=== PATIENT | male | born 1965 | race Caucasian/White ===

== ENCOUNTER 2019-12-23 10:22 | Inpatient (IN) | payer SELFPAY ==
[2019-12-23 11:20] LABS: #Lymphocytes 1.3 thou/uL (1.20-3.40); #Neutrophils 6.3 thou/uL (1.40-6.50); %Basophils 0.5 % (0.0-1.0); %Eosinophils 0.2 % (0.0-10.0); %Lymphocytes 14.7 % (21.0-51.0); %Monocytes 11.3 % (0.0-10.0); %Neutrophils 73.3 % (42.0-75.0); Hemoglobin 14.4 g/dL (14.0-18.0); Mean Corpuscular HGB CONC 31.5 g/dL (32.0-36.0); Mean Corpuscular Hemoglobin 31.3 pg (27.0-31.0); Mean Corpuscular Volume 99.3 fL (78.0-98.0); Mean Platelet Volume 10.3 fL (7.4-10.4); Platelet Count 179 thou/uL (130-400); Red Blood Cell (RBC) Count 4.61 mill/uL (4.70-6.10); White Blood Cell (WBC) Count 8.5 thou/uL (4.8-10.8)
[2019-12-23] MEDS ORDERED: Ondansetron ODT 4 MG TAB ONE (11:47)
[2019-12-23] MEDS ORDERED: Ondansetron PF 4 MG/2 ML Vial ONE ×2 (11:47→11:51)
[2019-12-23 11:49] LABS: ALT (SGPT) 41 U/L (8-55); AST (SGOT) 21 U/L (5-34); Albumin 3.4 g/dL (3.5-5.0); Alkaline Phosphatase 257 U/L (40-110); Anion Gap 25 mmol/L (10-20); BUN (Urea Nitrogen) 62 mg/dL (8.4-25.7); Bilirubin, Total 4.7 mg/dL (0.2-1.2); Calc. Creatinine Clearance 0 mL/min (70-130); Calcium 8.6 mg/dL (7.8-10.44); Carbon Dioxide 18 mmol/L (22-29); Chloride 92 mmol/L (98-107); Estimated GFR-MDRD 7; Globulin 3.3 g/dL (2.4-3.5); Glucose 266 mg/dL (70-105); Potassium 5.4 mmol/L (3.5-5.1); Protein, Total 6.7 g/dL (6.0-8.3); Sodium 130 mmol/L (136-145)
[2019-12-23 11:59] LABS: CKMB 3.7 ng/mL (0-6.6)
[2019-12-23] MEDS ORDERED: Heparin 10,000 UNITS/ 10 ML VIAL ONE (12:26)
--- NOTE | 2019-12-23 12:43 | RAD ---
EXAM: Single view of the chest HISTORY: Chest pain during dialysis COMPARISON: None FINDINGS: Single view of the chest shows a normal sized cardiomediastinal silhouette. A right IJ denise lysis catheter seen with its tip in the superior vena cava. There may be a small right pleural effusion. The bones are unremarkable. IMPRESSION: Possible small right pleural effusion.
[2019-12-23] MEDS ORDERED: Aspirin Chewable 81 MG TAB ONE (12:48)
[2019-12-23] MEDS ORDERED: Dextrose 5% in Water 1,000 ML IV PRN (13:39)
[2019-12-23] MEDS ORDERED: Nitroglycerin 0.4 MG TAB (25 Tab Bottle) SL PRN (13:40)
[2019-12-23 15:00] LABS: Troponin I 0.059 ng/mL (< 0.028)
[2019-12-23 15:25] LABS: HBSAg Index 0.22 S/CO (0-0.99); Hep B Surf Ag Non-Reactive S/CO (NonReactive)
[2019-12-23] MEDS: Heparin 5,000 UNITS/ML VIAL SC SCH ×2 (15:46→21:16)
[2019-12-23] MEDS: Insulin Regular 300 UNITS/3 ML VIAL SC PRN (15:47)
--- NOTE | 2019-12-23 16:01 | CON ---
DATE OF CONSULTATION: REASON FOR CONSULTATION: End-stage renal disease, on maintenance hemodialysis. HISTORY OF PRESENT ILLNESS: This is a very pleasant 54-year-old gentleman, who presented for evaluation and management of chest pain. The patient is on dialysis on Wednesday, , Wednesday and is supposed to get vancomycin for cellulitis. The patient denies any nausea, vomiting, or chest pain. PAST MEDICAL HISTORY: Hypertension, diabetes mellitus, cirrhosis, ESRD, hypothyroidism, right foot surgery, tunneled dialysis catheter. SOCIOECONOMIC HISTORY: No alcohol or drug use. FAMILY HISTORY: Negative for ESRD. ALLERGIES: REVIEWED. REVIEW OF SYSTEMS: Fifteen-point review of system was performed and negative except for positives noted above. GENERAL: HEAD: NECK: No swelling or lumps. NOSE: No epistaxis or discharge. EYES: No diplopia or pain. RESPIRATORY: CARDIOVASCULAR: GASTROINTESTINAL: /CREDIT ASSISTANT: MUSCULOSKELETAL: No joint pain. NEUROPSYCHIATRIC SYSTEMS: No suicidal ideation. No ideation. SKIN: Denies any rash or ulcer. CONSTITUTIONAL: No fever or chills. PHYSICAL EXAMINATION: CONSTITUTIONAL: On exam, the patient is awake and alert. VITAL SIGNS: Afebrile, pulse 82, breathing 16, and blood pressure 103/70. GENERAL APPEARANCE AND MENTAL STATUS: Fair. HEAD/NECK: Normocephalic. Atraumatic. EYES: EOMI. No deformity. EARS: Clear. No ulcers. NOSE: Intact. No lesions. MOUTH: Clear. No discharge. THROAT: Clear. No exudate. LUNGS: Clear. No crackles. CARDIAC: S1, S2. No rub. ABDOMEN: Benign. Bowel sounds positive. GENITALIA/RECTUM: Abraham absent. BACK/EXTREMITIES: Edema 0+. NEUROLOGICAL: Alert and motor intact. SKIN: LYMPHATICS: LABORATORY DATA: Labs show hemoglobin 14.4. ASSESSMENT AND PLAN: 1. Stage 6 chronic kidney disease. Plan dialysis. 2. Hyperkalemia. Plan dialysis. 3. Anemia, stable. 4. Medications based on glomerular filtration rate are appropriate. Job ID: [id number]
[2019-12-23 17:38] LABS: Troponin I 0.059 ng/mL (< 0.028)
[2019-12-23] MEDS ORDERED: Vancomycin Sliding Scale 1 EACH FS ONE (18:00)
[2019-12-23] MEDS ORDERED: Vancomycin HCl 1.5 GM in Sodium Chloride 0.9% 250 ML 300 ML IVPB SCH (18:00)
[2019-12-23] MEDS ORDERED: HOLD VANCOMYCIN FOR LEVEL >20 FS SCH (18:00)
[2019-12-23] MEDS ORDERED: Vancomycin HCl 750 MG in Sodium Chloride 0.9% 250 ML 250 ML IVPB SCH (18:00)
[2019-12-23] MEDS ORDERED: Vancomycin HCl 1.25 GM in Sodium Chloride 0.9% 250 ML 250 ML IVPB SCH (18:00)
[2019-12-23] MEDS ORDERED: Vancomycin HCl 1 GM in Premix Bag 1 BAG IVPB SCH (18:00)
--- NOTE | 2019-12-23 19:49 | HP ---
CHIEF COMPLAINT: Chest pain. HISTORY OF PRESENT ILLNESS: This is a 54-year-old male with history of end- stage renal disease, recently started on hemodialysis; history of hypertension; diabetes mellitus type 2, on insulin; and recent diagnosis of pericardial effusion with no tamponade; who presented to the hospital with complaints of right-sided chest pain. The patient went for his dialysis today and after 1 hour of starting the dialysis, he started experiencing right-sided chest pain around his Edwards catheter site. Subsequently, hemodialysis was discontinued and the patient's pain resolved in few minutes. The patient was sent to the emergency department, where his initial vitals were stable and he did not complain of any chest pain. EKG showed T-wave inversion in V4 to V6 and initial troponin was slightly elevated at 0.065. The patient denied any recent fever, chills, nausea, vomiting, palpitations, cough, shortness of breath, or dizziness. Given his risk factor for coronary artery disease based on his history of end- stage renal disease and elevated heart score, we were asked to see this patient for further evaluation. REVIEW OF SYSTEMS: Negative except as noted in HPI. PAST MEDICAL HISTORY: 1. End-stage renal disease, on hemodialysis. 2. Hypertension. 3. Diabetes mellitus type 2, on insulin. 4. Pericardial effusion. PAST SURGICAL HISTORY: None. SOCIAL HISTORY: The patient does not smoke, drink alcohol, or use illicit drugs. PHYSICAL EXAMINATION: GENERAL: The patient is alert and oriented x3. He appears to be in distress due to generalized aching. HEENT: His head is normocephalic, atraumatic. His extraocular muscles are intact. NECK: Supple. HEART: Auscultation revealed normal S1 and S2, regular rate and rhythm. No murmurs, rubs, or gallops. LUNGS: Clear bilaterally. Crackles were heard at the bases. ABDOMEN: Soft, nontender, and nondistended with positive bowel sounds. NEUROLOGICAL: Revealed normal cranial nerves 2 through 12 with no focal deficits. PERTINENT LABORATORY FINDINGS: Sodium level of 130, potassium 5.4, chloride 92, carbon dioxide 18, BUN 62, creatinine 8.06, and glucose of 266. His troponin was elevated at 0.065. IMAGING DATA: Chest x-ray revealed possible small right pleural effusion. IMPRESSION AND PLAN: 1. Chest pain, rule out acute coronary syndrome. The patient presented with atypical chest pain around his Edwards catheter, that was relieved after discontinuation of hemodialysis. We will consult Nephrology for hemodialysis and to assess the functioning of the Edwards catheter. We will trend troponins and start aspirin and atorvastatin. Start nitroglycerin 0.4 mg p.r.n. for pain and metoprolol tartrate 12.5 mg orally twice daily. Heart score is 4 correlating with risk of MACE of 12% to 16.6%. If the patient remains chest pain-free and his troponins are unremarkable, we will plan for a stress test tomorrow. 2. End-stage renal disease, on hemodialysis. 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 3. Volume overload and hyperkalemia. This will likely improve with dialysis. 4. Pleural effusion. This is small and is not amenable to thoracentesis. Likely related to volume overload. 5. Pericardial effusion. No evidence of tamponade on recent echo. Likely related to volume overload. Job ID: [id number] MTDD
[2019-12-23] MEDS: Atorvastatin Calcium 20 MG TAB PO SCH (21:16)
[2019-12-23] MEDS: Metoprolol Tartrate 25 MG TAB PO SCH (23:08)
[2019-12-24 04:54] LABS: Anion Gap 20 mmol/L (10-20); BUN (Urea Nitrogen) 50 mg/dL (8.4-25.7); Calc. Creatinine Clearance 18 mL/min (70-130); Calcium 8.4 mg/dL (7.8-10.44); Carbon Dioxide 19 mmol/L (22-29); Chloride 97 mmol/L (98-107); Estimated GFR-MDRD 8; Glucose 192 mg/dL (70-105); Potassium 4.5 mmol/L (3.5-5.1); Sodium 131 mmol/L (136-145)
[2019-12-24 05:21] LABS: Mean Corpuscular Volume 96.9 fL (78.0-98.0)
[2019-12-24 06:07] LABS: Hemoglobin 12.9 g/dL (14.0-18.0); Mean Corpuscular HGB CONC 33.1 g/dL (32.0-36.0); Mean Corpuscular Hemoglobin 32.1 pg (27.0-31.0); RBC Distribution Width 19.3 % (11.5-14.5); Red Blood Cell (RBC) Count 4.03 mill/uL (4.70-6.10)
[2019-12-24 06:45] LABS: Anisocytosis SLIGHT = 6-15 cells (100X) (0-5/hpf); Band 5 % (5-11); Lymphocytes 12 % (21-51); MDiff Complete? YES; Mean Platelet Volume 10.6 fL (7.4-10.4); Monocytes 7 % (0-10); Neutrophil 76 % (42-75); Platelet Count 127 thou/uL (130-400)
[2019-12-24] MEDS ORDERED: Preparation H Suppository PR PRN (11:53)
[2019-12-24] MEDS: Heparin 5,000 UNITS/ML VIAL SC SCH ×3 (12:07→20:24)
[2019-12-24] MEDS: Insulin Glargine 20 UNITS in Pre-Filled Syringe 1 EACH SC SCH (13:33)
[2019-12-24] MEDS: Aspirin 81 mg Enteric Coated Tablet PO SCH (13:33)
[2019-12-24] MEDS: Metoprolol Tartrate 25 MG TAB PO SCH ×2 (13:48→20:22)
--- NOTE | 2019-12-24 14:40 | PDOC.HOSPP ---
- Subjective Encounter Date: 12/24/19 Subjective: Stress test could not be completed due to the patient being unable to lay on the test table - Objective Vital Signs & Weight: Vital Signs (12 hours) Temp Pulse Resp BP Pulse Ox 12/24/19 11:44 97.3 F L 94 18 93/62 93 L 12/24/19 07:42 98.1 F 90 16 92/62 92 L 12/24/19 03:25 98.1 F 90 22 H 88/58 L 92 L Weight Admit Weight 228 lb 1.6 oz Weight 228 lb 1.6 oz I&O: 12/23/19 12/24/19 12/25/19 06:59 06:59 06:59 Intake Total 320 480 Output Total 0 1350 Balance 320 -870 Result Diagrams: 12/24/19 04:15 12/24/19 04:15 Additional Labs: Accuchecks 12/24/19 12/24/19 12/23/19 11:50 06:05 21:18 POC Glucose 195 H 167 H 154 H 12/23/19 14:40 POC Glucose 224 H Hospitalist ROS - Medication Medications: Active Medications Generic Name Dose Route Start Last Admin Trade Name Freq PRN Reason Stop Dose Admin Aspirin 81 mg 12/24/19 09:00 12/24/19 13:33 Ecotrin PO 81 mg DAILY REYNALDO Administration Atorvastatin Calcium 20 mg 12/23/19 21:00 12/23/19 21:16 Lipitor PO 20 mg HS REYNALDO Administration Heparin Sodium (Porcine) 5,000 units 12/23/19 15:00 12/24/19 12:07 Heparin SC Not Given TID REYNALDO Insulin Glargine 20 units/ 0.2 mls @ 0 mls/hr 12/24/19 09:00 12/24/19 13:33 Miscellaneous Medication SC 0.2 mls QAM REYNALDO Administration Insulin Human Regular 0 units 12/23/19 13:39 12/23/19 15:47 Humulin R SC 4 unit .MODERATE SLIDING SC PRN Administration Moderate Correctional Scale Metoprolol Tartrate 12.5 mg 12/23/19 21:00 12/24/19 13:48 Lopressor PO Not Given BID REYNALDO Phenyleph/Shark Oil/[place] Butter 1 supp 12/24/19 11:53 12/24/19 13:34 Preparation H TN 1 supp Q6H PRN Administration Hemorrhoids - Exam General Appearance: awake alert Eye: anicteric sclera ENT: normocephalic atraumatic, no oropharyngeal lesions Neck: supple, no JVD Heart: RRR, no murmur, no gallops Respiratory: rhonchi Gastrointestinal: soft, non-tender, non-distended, normal bowel sounds Neurological: cranial nerve grossly intact, no focal deficits Hosp A/P (1) Chest pain Code(s): R07.9 - CHEST PAIN, UNSPECIFIED Status: Acute Plan: TWI on V4-V6 Trop stable at 0.05 Chest pain is atypical Stress test to be completed tomorrow (2) ESRD (end stage renal disease) on dialysis Code(s): N18.6 - END STAGE RENAL DISEASE; Z99.2 - DEPENDENCE ON RENAL DIALYSIS Status: Acute Plan: The patient would like to transition to peritoneal dialysis Surgery consulted by nephrology Cont HD per nephrology recs (3) Volume overload Code(s): E87.70 - FLUID OVERLOAD, UNSPECIFIED Status: Acute
--- NOTE | 2019-12-24 15:10 | PRG ---
DATE OF SERVICE: 12/24/2019 SUBJECTIVE: A 54-year-old gentleman being seen for end-stage renal disease. The patient denies any nausea, vomiting, or chest pain. OBJECTIVE: VITAL SIGNS: Afebrile, pule 94, breathing 16, and blood pressure 93/62. CONSTITUTIONAL: Awake, alert, in no acute distress. GENERAL APPEARANCE AND MENTAL STATUS: Fair. HEAD/NECK: Normocephalic. Atraumatic. EYES: EOMI. No deformity. EARS: Clear. No ulcers. NOSE: Intact. No lesions. MOUTH: Clear. No discharge. THROAT: Clear. No exudate. LUNGS: Clear. No crackles. CARDIAC: S1, S2. No rub. ABDOMEN: Benign. Bowel sounds positive. GENITALIA/RECTUM: Abraham absent. BACK/EXTREMITIES: Edema 0+. NEUROLOGICAL: Alert and motor intact. SKIN: LYMPHATICS: LABORATORY DATA: Reviewed. ASSESSMENT: 1. Stage 6 chronic kidney disease. Continue hemodialysis. 2. Hypotension with question of history of abnormal stress test. We will recommend echo and Cardiology consultation. 3. Failed dialysis catheter. We would recommend new catheter consult and PD catheter placement. 4. Anemia, stable. 5. Medication based on GFR appropriate. Job ID: [id number]
[2019-12-24] MEDS: Insulin Regular 300 UNITS/3 ML VIAL SC PRN (19:05)
--- NOTE | 2019-12-24 19:14 | CON ---
DATE OF CONSULTATION: 12/24/2019 REASON FOR CONSULTATION: Chest pain. HISTORY OF PRESENT ILLNESS: Mr. North is a pleasant 54-year-old white gentleman who comes to the hospital for chest pain. He was started recently on hemodialysis. He had a tunneled catheter placement for his right chest, and he is having pain around his site. He had 1 hour of dialysis today, and when they start pulling the blood out of the line, it is painful to him. He was scheduled for a stress test today, but he had pain around his hemorrhoid site, so he could not lay on his back, so the stress test was canceled. He also has chronically low blood pressure in the 80s/60s, so his stress was canceled. He denies any left-sided chest pain, the pain is only there when they start pulling blood from the dialysis catheter. He is also battling an infection on his legs, and he has been told this is an MRSA infection or at least just a staph infection, and he feels he needs to be on antibiotics. His troponins are in indeterminate range. He has never had a heart workup in the past, however, he was told when he started having renal issues that he had fluid around his heart. This was not seen in [place], but he was told that with the initiation of dialysis, this fluid was going to start to come off. PAST MEDICAL HISTORY: 1. End-stage renal disease, on hemodialysis. 2. Hypertension. 3. Type 2 diabetes. 4. History of pericardial effusion. PAST SURGICAL HISTORY: Tunneled catheter placed on the right IJ. SOCIAL HISTORY: No alcohol, tobacco, or drugs. OUTPATIENT MEDICATIONS: 1. Lantus insulin 30 units at bedtime. 2. Spironolactone 25 mg a day. 3. Furosemide 80 mg b.i.d. 4. Midodrine 10 mg t.i.d. 5. Amiloride 5 mg a day. 6. Metolazone 10 mg b.i.d. 7. Docusate 100 mg a day. 8. Renvela. 9. Vitamin D3. ALLERGIES: NO KNOWN DRUG ALLERGIES. FAMILY HISTORY: Noncontributory. REVIEW OF SYSTEMS: A 12-point review of systems was done and was all negative unless stated in the history of present illness. PHYSICAL EXAMINATION: VITAL SIGNS: Temperature 98, pulse 98, respiratory rate 18, saturation 96% on room air, blood pressure 90/72. GENERAL: Awake, alert, oriented x3. In no distress. HEENT: Normocephalic and atraumatic. NECK: Supple. LUNGS: Clear. CARDIOVASCULAR: S1 and S2. No S3 or S4. No murmurs. ABDOMEN: Soft. Positive bowel sounds. EXTREMITIES: 1+ edema. SKIN: Warm and dry. There is erythema on both legs. This is not painful and it is warm. LABORATORY WORK: White count of 8, hemoglobin of 12.9, hematocrit 39, platelet count 127. Chemistry with a sodium 131, potassium 4.5, BUN 50, creatinine 6.97, GFR of 8. Troponin is in the indeterminate range at 0.06, then 0.05, then 0.05 with a CK-MB of 3.7. HB surface antigen was nonreactive. Chest x-ray showed possible small right pleural effusion. ASSESSMENT AND PLAN: 1. Chest pain, atypical, likely related to the new right-sided tunneled catheter. 2. End-stage renal disease, on hemodialysis. This is new for him. He is trying to get at least 4 hours and they could only do 1 hour this time due to pain and low blood pressure. 3. Low blood pressure with hemodialysis, on midodrine. 4. Bilateral lower extremity cellulitis. He has been told it is staph infection per Primary Team. PLAN: 1. He has never had a stress test before. We will repeat an echocardiogram to make sure that his pericardial effusion is not growing significantly if that is the case, he may need a window. However, he tells me that his low blood pressure has been like this pretty much all his life. He does not feel short of breath. He only feels the pain on his back is an issue and he is worried about the infection in his legs. 2. Chest pain is certainly atypical for angina. He has right-sided pain around his catheter site. We will wait on any further risk stratification until other issues are addressed. Thank you for letting us to participate in the care of your patient. We will follow. Job ID: [id number]
[2019-12-24] MEDS: Atorvastatin Calcium 20 MG TAB PO SCH (20:23)
[2019-12-25 05:08] LABS: Anion Gap 20 mmol/L (10-20); BUN (Urea Nitrogen) 57 mg/dL (8.4-25.7); Calc. Creatinine Clearance 16 mL/min (70-130); Calcium 8.1 mg/dL (7.8-10.44); Carbon Dioxide 15 mmol/L (22-29); Chloride 97 mmol/L (98-107); Estimated GFR-MDRD 7; Glucose 151 mg/dL (70-105); Potassium 5.6 mmol/L (3.5-5.1); Sodium 126 mmol/L (136-145)
[2019-12-25 06:02] LABS: Hemoglobin 12.8 g/dL (14.0-18.0); Mean Corpuscular HGB CONC 31.2 g/dL (32.0-36.0); Mean Corpuscular Hemoglobin 31.2 pg (27.0-31.0); Mean Platelet Volume 7.6 fL (7.4-10.4); Platelet Count 131 thou/uL (130-400); RBC Distribution Width 19.4 % (11.5-14.5); Red Blood Cell (RBC) Count 4.11 mill/uL (4.70-6.10)
[2019-12-25 06:12] LABS: Eosinophils 1 % (0-10); Lymphocytes 20 % (21-51); MDiff Complete? YES; Monocytes 10 % (0-10); Neutrophil 69 % (42-75); Target Cells SLIGHT = 2-5 cells (100X) (0-1/hpf); White Blood Cell (WBC) Count 7.2 thou/uL (4.8-10.8)
[2019-12-25] MEDS: Heparin 5,000 UNITS/ML VIAL SC SCH ×3 (08:40→20:22)
[2019-12-25] MEDS: Aspirin 81 mg Enteric Coated Tablet PO SCH (08:40)
[2019-12-25] MEDS: Insulin Glargine 20 UNITS in Pre-Filled Syringe 1 EACH SC SCH (08:41)
[2019-12-25] MEDS: Metoprolol Tartrate 25 MG TAB PO SCH ×2 (08:42→20:38)
[2019-12-25] MEDS ORDERED: Heparin 10,000 UNITS/ 10 ML VIAL ONE (08:55)
[2019-12-25] MEDS ORDERED: Regadenoson 0.4 MG/5 ML SYRINGE ONE (08:57)
--- NOTE | 2019-12-25 13:10 | PRG ---
DATE OF SERVICE: 12/25/2019 SUBJECTIVE: Patient was seen and examined at bedside and overnight events noted. Patient denies any shortness of breath or chest pain or palpitation. No history of nausea or vomiting or diarrhea or fever or chills or cramps. OBJECTIVE: GENERAL: This is a well-built male, in no apparent distress. VITAL SIGNS: Temperature 97.9, heart rate 88, respiratory rate 18, blood pressure 100/57. HEENT: Atraumatic, normocephalic. Oral mucosa is moist. NECK: Supple. CARDIOVASCULAR: S1, S2 heard. Rate and rhythm regular. RESPIRATORY: Clear to auscultation. GASTROINTESTINAL: Abdomen is soft. MUSCULOSKELETAL: No tenderness. No edema. DERMATOLOGIC: No skin rash. NEUROLOGIC: Alert and awake and oriented X3. No focal neurologic deficits. Moving all the extremities. PSYCHIATRIC: Mood and affect normal. LABORATORY DATA: Potassium 5.6, sodium is 126, BUN is 57, and creatinine is 7.8. ASSESSMENT AND PLAN: 1. End-stage renal disease, on hemodialysis. Plan is to have dialysis. 2. Hypotension. We will use albumin. 3. Hyponatremia, limit fluid intake. 4. Hyperkalemia. Limit potassium intake. 5. Acidosis, chronic. 6. History of cirrhosis. 7. Chronic hypotension, on midodrine. 8. Anemia. 9. Plan is to have dialysis today, might need daily dialysis with albumin. 10. The patient and family are interested in doing PD. We will ask Surgery to assess if he can have PD catheter placement, also might need to change out the tunneled dialysis catheter. We will consult Surgery in the morning. Plan to have dialysis today. Limit fluid and potassium intake. Job ID: [id number]
--- NOTE | 2019-12-25 13:11 | NM ---
Radionucleotide stress and rest myocardial perfusion scan with CT attenuation correction and SPECT im aging Left ventricular wall motion evaluation and ejection fraction HISTORY: Chest pain. FINDINGS: Lexiscan protocol. There is heterogeneous uptake of radiotracer throughout the left ventric ular myocardium. No focal perfusion defect or reversibility. QGS analysis of gated SPECT images shows no focal wall motion abnormalities. Ejection fraction calcul ated at 77%. IMPRESSION: Normal exam.
--- NOTE | 2019-12-25 13:56 | PDOC.HOSPP ---
- Subjective Encounter Date: 12/25/19 Subjective: The patient was seen and examined. Denies any chest pain today. N.p.o. for the second part of the stress test. - Objective Vital Signs & Weight: Vital Signs (12 hours) Temp Pulse Resp BP Pulse Ox 12/25/19 12:34 97.4 F L 91 16 92/68 94 L 12/25/19 08:46 96/65 12/25/19 07:20 97.9 F 88 18 100/57 L 92 L 12/25/19 05:20 98.1 F 92 16 99/50 L 92 L Weight Admit Weight 228 lb 1.6 oz Weight 228 lb 1.6 oz I&O: 12/24/19 12/25/19 12/26/19 06:59 06:59 06:59 Intake Total 320 600 Output Total 0 1350 Balance 320 -750 Result Diagrams: 12/25/19 04:12 12/25/19 04:12 Additional Labs: Accuchecks 12/25/19 12/25/19 12/24/19 10:23 05:28 20:51 POC Glucose 133 H 151 H 222 H 12/24/19 17:29 POC Glucose 257 H Hospitalist ROS - Medication Medications: Active Medications Generic Name Dose Route Start Last Admin Trade Name Freq PRN Reason Stop Dose Admin Aspirin 81 mg 12/24/19 09:00 12/25/19 08:40 Ecotrin PO 81 mg DAILY REYNALDO Administration Atorvastatin Calcium 20 mg 12/23/19 21:00 12/24/19 20:23 Lipitor PO 20 mg HS REYNALDO Administration Heparin Sodium (Porcine) 5,000 units 12/23/19 15:00 12/25/19 08:40 Heparin SC 5,000 units TID REYNALDO Administration Insulin Glargine 20 units/ 0.2 mls @ 0 mls/hr 12/24/19 09:00 12/25/19 08:41 Miscellaneous Medication SC Not Given QAM [facility] Insulin Human Regular 0 units 12/23/19 13:39 12/24/19 19:05 Humulin R SC 6 unit .MODERATE SLIDING SC PRN Administration Moderate Correctional Scale Metoprolol Tartrate 12.5 mg 12/23/19 21:00 12/25/19 08:42 Lopressor PO Not Given BID [facility] Phenyleph/Shark Oil/[place] Butter 1 supp 12/24/19 11:53 12/24/19 13:34 Preparation H MD 1 supp Q6H PRN Administration Hemorrhoids - Exam General Appearance: awake alert ENT: normocephalic atraumatic Neck: supple, no JVD Heart: RRR, no murmur, no gallops, no rubs Respiratory: rhonchi Gastrointestinal: soft, non-tender, non-distended, normal bowel sounds Hosp A/P (1) Chest pain Code(s): R07.9 - CHEST PAIN, UNSPECIFIED Status: Acute (2) ESRD (end stage renal disease) on dialysis Code(s): N18.6 - END STAGE RENAL DISEASE; Z99.2 - DEPENDENCE ON RENAL DIALYSIS Status: Acute (3) Volume overload Code(s): E87.70 - FLUID OVERLOAD, UNSPECIFIED Status: Acute - Plan Stress test to be completed today. Patient is also scheduled for hemodialysis. This should help with his hyperkalemia. Surgical service will be consulted to discuss PD catheter placement tomorrow.
--- NOTE | 2019-12-25 14:44 | PDOC.CPN ---
- Subjective Date: 12/25/19 Time: 14:37 Interval history: He is doing well. Pain still around his infusion catheter. - Review of Systems General: denies: fever/chills, weight/appetite/sleep changes, night sweats, fatigue Respiratory: denies: cough, congestion, shortness of breath, exercise intolerance Cardiovascular: reports: chest pain. denies: palpitation, edema, paroxysmal nocturnal dyspnea, orthopnea Gastrointestinal: denies: nausea, vomiting, diarrhea, constipation, abd pain, GI bleeding Musculoskeletal: denies: pain, tenderness, stiffness, swelling, arthritis/ arthralgias Neurological: denies: numbness, syncope, seizure, weakness - Objective Allergies/Adverse Reactions: Allergies Allergy/AdvReac Type Severity Reaction Status Date / Time No Known Allergies Allergy Verified 12/23/19 14:30 Visit Medications: Current Medications Hydrocodone Bitart/Acetaminophen ([place] 5/325) 1 tab PO Q12H PRN PRN Reason: Moderate Pain (4-6) Albumin Human (Albumin 25%) 25 gm IVPB PRN PRN PRN Reason: DIALYSIS Aspirin (Ecotrin) 81 mg PO DAILY [facility] Last Admin: 12/25/19 08:40 Dose: 81 mg Atorvastatin Calcium (Lipitor) 20 mg PO HS [facility] Last Admin: 12/24/19 20:23 Dose: 20 mg Dextrose/Water (Dextrose 50%) 25 gm SLOW IVP PRN PRN PRN Reason: Hypoglycemia Glucagon (Glucagon) 1 mg IM PRN PRN PRN Reason: Hypoglycemia Heparin Sodium (Porcine) (Heparin) 5,000 units SC TID [facility] Last Admin: 12/25/19 08:40 Dose: 5,000 units Insulin Glargine 20 units/ (Miscellaneous Medication) 0.2 mls @ 0 mls/hr SC QAM [facility] Last Admin: 12/25/19 08:41 Dose: Not Given Dextrose/Water (D5w) 1,000 mls @ 0 mls/hr IV .Q0M PRN PRN Reason: Hypoglycemia Vancomycin HCl 1.5 gm/ Sodium (Chloride) 300 mls @ 200 mls/hr IVPB WILLCALL REYNALDO Vancomycin HCl 1.25 gm/ Sodium (Chloride) 250 mls @ 166.667 mls/hr IVPB [facility]CALL [facility] Vancomycin HCl 1 gm/ Device 200 mls @ 200 mls/hr IVPB [facility] Vancomycin HCl 750 mg/ Sodium (Chloride) 250 mls @ 250 mls/hr IVPB [facility] Insulin Human Regular (Humulin R) 0 units SC .MODERATE SLIDING SC PRN PRN Reason: Moderate Correctional Scale Last Admin: 12/24/19 19:05 Dose: 6 unit Metoprolol Tartrate (Lopressor) 12.5 mg PO BID [facility] Last Admin: 12/25/19 08:42 Dose: Not Given Miscellaneous Medication (Pharmacy To Dose) 1 each IVPB PRN PRN PRN Reason: Pharmacy to dose Nitroglycerin (Nitrostat) 0.4 mg SL Q5MIN PRN PRN Reason: Chest Pain Hold Vancomycin For (Level >20) 0 each FS .AT DIALYSIS [facility] Phenyleph/Shark Oil/[place] Butter (Preparation H) 1 supp [place] Q6H PRN PRN Reason: Hemorrhoids Last Admin: 12/24/19 13:34 Dose: 1 supp Vital Signs & Weight: Vital Signs Temp Pulse Resp BP Pulse Ox 12/25/19 12:34 97.4 F L 91 16 92/68 94 L 12/25/19 08:46 96/65 12/25/19 07:20 97.9 F 88 18 100/57 L 92 L 12/25/19 05:20 98.1 F 92 16 99/50 L 92 L Admit Weight 228 lb 1.6 oz Weight 228 lb 1.6 oz - Physical Exam General: alert & oriented x3 HEENT: mucus membranes moist Neck: supple neck Cardiac: regular rate and rhythm Lungs: normal breath sounds Neuro: grossly intact Abdomen: active bowel sounds Extremities: 1+ LE edema Skin: clear Musculoskeletal: normal range of motion - Labs Result Diagrams: 12/25/19 04:12 12/25/19 04:12 Troponin/CKMB CK-MB (CK-2) 3.7 ng/mL (0-6.6) 12/23/19 11:05 Troponin I 0.059 ng/mL (< 0.028) H 12/23/19 17:04 - Telemetry Sinus rhythms and dysrhythmias: sinus rhythm - Assessment/Plan Assessment/Plan: 1. Chest pain, atypical likely non cardiac 2. ESRD 3. Hypotension during dialysis. PLAN: - Continue plan to dialize. - Stress test was normal. No plan for C at this time. - Will sign off. Please call with any questions.
[2019-12-25] MEDS: Albumin 25% 25 GM/100 ML BOT IVPB PRN (14:54)
[2019-12-25] MEDS: Atorvastatin Calcium 20 MG TAB PO SCH (20:22)
[2019-12-26] MEDS ORDERED: guaiFENesin/Codeine Phosphate 200 mg/20 mg 10 ml UD Cup PO PRN (00:08)
[2019-12-26 04:58] LABS: Anion Gap 16 mmol/L (10-20); BUN (Urea Nitrogen) 52 mg/dL (8.4-25.7); Calc. Creatinine Clearance 17 mL/min (70-130); Calcium 8.4 mg/dL (7.8-10.44); Carbon Dioxide 22 mmol/L (22-29); Chloride 97 mmol/L (98-107); Estimated GFR-MDRD 8; Glucose 126 mg/dL (70-105); Potassium 4.7 mmol/L (3.5-5.1); Sodium 130 mmol/L (136-145)
[2019-12-26 06:07] LABS: Anisocytosis MODERATE=16-30 cells (100X) (0-5/hpf); Band 8 % (5-11); Hemoglobin 12.2 g/dL (14.0-18.0); Lymphocytes 24 % (21-51); MDiff Complete? YES; Mean Corpuscular HGB CONC 32.6 g/dL (32.0-36.0); Mean Corpuscular Hemoglobin 31.8 pg (27.0-31.0); Mean Corpuscular Volume 97.7 fL (78.0-98.0); Mean Platelet Volume 10.3 fL (7.4-10.4); Monocytes 6 % (0-10); Neutrophil 62 % (42-75); Platelet Count 115 thou/uL (130-400); Platelet Morphology Comment Appears Decreased; RBC Distribution Width 19.5 % (11.5-14.5); Red Blood Cell (RBC) Count 3.83 mill/uL (4.70-6.10); White Blood Cell (WBC) Count 6.2 thou/uL (4.8-10.8)
[2019-12-26 09:53] LABS: Vancomycin, Random 7.5 ug/mL (See Comment)
[2019-12-26] MEDS: Albumin 25% 25 GM/100 ML BOT IVPB PRN (10:35)
[2019-12-26] MEDS: Aspirin 81 mg Enteric Coated Tablet PO SCH (11:35)
[2019-12-26] MEDS: Metoprolol Tartrate 25 MG TAB PO SCH ×2 (11:36→21:12)
[2019-12-26] MEDS: Heparin 5,000 UNITS/ML VIAL SC SCH ×3 (11:36→21:09)
[2019-12-26] MEDS: Insulin Glargine 20 UNITS in Pre-Filled Syringe 1 EACH SC SCH (11:36)
[2019-12-26] MEDS ORDERED: Heparin 10,000 UNITS/ 10 ML VIAL ONE (12:25)
[2019-12-26] MEDS ORDERED: CEFAZOLIN 2 GM in Premix Bag 1 BAG IVPB SCH (14:15)
--- NOTE | 2019-12-26 14:51 | ULT ---
BILATERAL UPPER EXTREMITY VEIN MAPPING: HISTORY: End stage renal disease evaluation for dialysis access. FINDINGS: RIGHT CEPHALIC VEIN: Proximal humerus thrombus Mid humerus thrombus Distal thrombus Elbow thrombus Proximal forearm 1.7 mm Mid 1.7 mm Distal 1.9 mm RIGHT BASILIC VEIN: Proximal humerus 3.1 mm Mid humerus 4.7 mm Distal 3.8 mm Elbow 3.8 mm Proximal forearm 2.3 mm Mid 1.5 mm Distal 1.2 mm LEFT CEPHALIC VEIN: Proximal humerus 3.5 mm Mid humerus 2.5 mm Distal 2.0 mm Elbow 2.7 mm Proximal forearm 2.2 mm Mid thrombus Distal thrombus LEFT BASILIC VEIN: Proximal humerus thrombus Mid humerus thrombus Distal thrombus Elbow thrombus Proximal forearm thrombus Mid thrombus Distal 2.3 mm Right: Brachial artery 3.8 mm Radial artery 1.9 mm Ulnar artery 2.3 mm Left: Brachial artery 5.1 mm Radial artery 2.4 mm Ulnar artery 2.2 mm IMPRESSION: Vein mapping as above. POS: KERRI
--- NOTE | 2019-12-26 15:11 | CON ---
DATE OF CONSULTATION: HISTORY OF PRESENT ILLNESS: Dakota North is a 54-year-old male, works for the [employer] ([employer]). He had a dialysis catheter placed in the right IJ at [facility] in [place] in November. He has not sought more permanent dialysis access. During dialysis in [place], he had chest pain. He was sent here for evaluation. He underwent a cardiac stress test, that was negative. Cardiology has seen him and believes that his chest pain was noncardiac in etiology. He has dialyzed since that time without pain. I have been asked by Dr. Negrete to provide peritoneal dialysis and also he has undergone vein mapping. We will provide dialysis access in his right or left arm pending vein mapping. Vein mapping has been performed, but interpretation is pending. ALLERGIES: NONE. HABITS: Tobacco, none. Alcohol, none. MEDICATIONS: 1. Insulin. 2. Aldactone. 3. Lasix. 4. Midamor. 5. Metolazone. 6. Stool softeners. 7. Renvela. 8. Vitamin D. PAST SURGICAL HISTORY: 1. Right foot surgery. 2. Right IJ cuffed dialysis catheter. 3. Never has had a colonoscopy. PAST MEDICAL HISTORY: 1. Diabetes mellitus. 2. Hypertension. 3. Chronic kidney disease, now end-stage renal disease, on maintenance dialysis in [place] on Wednesday, , and Wednesday in [facility]. REVIEW OF SYSTEMS: Ten-point noncontributory. PHYSICAL EXAMINATION: VITAL SIGNS: Height 5 feet 11 inches, 228 pounds, 31 BMI, temperature 97 degrees, heart rate 91, and blood pressure 92/58. LUNGS: Clear to auscultation. CARDIAC: Regular rhythm without murmur or gallop. ABDOMEN: Soft, slightly obese, and nontender. EXTREMITIES: Mildly edematous. Left hand IV. Right IJ cuffed tunneled dialysis catheter. NEUROLOGIC: Intact. VASCULAR: Palpable radial pulses. LABORATORY DATA: White count 6 and hemoglobin 12. GFR 8, potassium 4.7, and sodium 130. ASSESSMENT AND PLAN: 1. End-stage renal disease. Plan placement of peritoneal dialysis catheter laparoscopically. Risks of infection, bleeding, reoperation, malfunction of the dialysis catheter were explained. He consents. Questions answered. 2. Plan placement of left or right arm fistula pending vein mapping. He understands risks and benefits, and consents. 3. Obesity, BMI 31, 228 pounds, 5 feet 11 inches. 4. Diabetes mellitus. 5. Hypertension. 6. Normal cardiac stress test in this hospitalization. Job ID: [id number]
--- NOTE | 2019-12-26 16:52 | PDOC.CPN ---
- Subjective Date: 12/26/19 Time: 16:51 Interval history: No new issues. - Review of Systems General: denies: fever/chills, weight/appetite/sleep changes, night sweats, fatigue Respiratory: denies: cough, congestion, shortness of breath, exercise intolerance Cardiovascular: denies: chest pain, palpitation, edema, paroxysmal nocturnal dyspnea, orthopnea Gastrointestinal: denies: nausea, vomiting, diarrhea, constipation, abd pain, GI bleeding Musculoskeletal: denies: pain, tenderness, stiffness, swelling, arthritis/ arthralgias Neurological: denies: numbness, syncope, seizure, weakness - Objective Allergies/Adverse Reactions: Allergies Allergy/AdvReac Type Severity Reaction Status Date / Time No Known Allergies Allergy Verified 12/23/19 14:30 Visit Medications: Current Medications Hydrocodone Bitart/Acetaminophen ([place] 5/325) 1 tab PO Q12H PRN PRN Reason: Moderate Pain (4-6) Aspirin (Ecotrin) 81 mg PO DAILY [facility] Last Admin: 12/26/19 11:35 Dose: Not Given Atorvastatin Calcium (Lipitor) 20 mg PO HS [facility] Last Admin: 12/25/19 20:22 Dose: 20 mg Dextrose/Water (Dextrose 50%) 25 gm SLOW IVP PRN PRN PRN Reason: Hypoglycemia Glucagon (Glucagon) 1 mg IM PRN PRN PRN Reason: Hypoglycemia Guaifenesin/Codeine Phosphate (Robitussin Ac) 5 ml PO Q4H PRN PRN Reason: Cough Last Admin: 12/26/19 00:22 Dose: 5 ml Heparin Sodium (Porcine) (Heparin) 5,000 units SC TID [facility] Last Admin: 12/26/19 15:52 Dose: 5,000 units Insulin Glargine 20 units/ (Miscellaneous Medication) 0.2 mls @ 0 mls/hr SC QAM [facility] Last Admin: 12/26/19 11:36 Dose: Not Given Dextrose/Water (D5w) 1,000 mls @ 0 mls/hr IV .Q0M PRN PRN Reason: Hypoglycemia Vancomycin HCl 1.5 gm/ Sodium (Chloride) 300 mls @ 200 mls/hr IVPB WILLCALL [facility] Vancomycin HCl 1.25 gm/ Sodium (Chloride) 250 mls @ 166.667 mls/hr IVPB WILLCALL [facility] Last Admin: 12/26/19 10:35 Dose: 250 mls Vancomycin HCl 1 gm/ Device 200 mls @ 200 mls/hr IVPB WILLCALL [facility] Vancomycin HCl 750 mg/ Sodium (Chloride) 250 mls @ 250 mls/hr IVPB WILLCALL [facility] Cefazolin Sodium/Dextrose 2 gm (/ Device) 50 mls @ 100 mls/hr IVPB ONCALL-OR REYNALDO Stop: 12/27/19 14:16 Insulin Human Regular (Humulin R) 0 units SC .MODERATE SLIDING SC PRN PRN Reason: Moderate Correctional Scale Last Admin: 12/24/19 19:05 Dose: 6 unit Metoprolol Tartrate (Lopressor) 12.5 mg PO BID [facility] Last Admin: 12/26/19 11:36 Dose: Not Given Miscellaneous Medication (Pharmacy To Dose) 1 each IVPB PRN PRN PRN Reason: Pharmacy to dose Nitroglycerin (Nitrostat) 0.4 mg SL Q5MIN PRN PRN Reason: Chest Pain Hold Vancomycin For (Level >20) 0 each FS .AT DIALYSIS [facility] Phenyleph/Shark Oil/[place] Butter (Preparation H) 1 supp MA Q6H PRN PRN Reason: Hemorrhoids Last Admin: 12/24/19 13:34 Dose: 1 supp Vital Signs & Weight: Vital Signs Temp Pulse Resp BP Pulse Ox 12/26/19 11:10 97 F L 91 20 92/58 L 95 12/26/19 08:16 98 F 86 18 106/64 95 Admit Weight 228 lb 1.6 oz Weight 228 lb 1.6 oz - Physical Exam General: alert & oriented x3 HEENT: mucus membranes moist Neck: supple neck Cardiac: regular rate and rhythm Lungs: clear to auscultation Neuro: grossly intact Abdomen: active bowel sounds Extremities: 1+ LE edema Skin: clear Musculoskeletal: no pain - Labs Result Diagrams: 12/26/19 04:06 12/26/19 04:06 Troponin/CKMB CK-MB (CK-2) 3.7 ng/mL (0-6.6) 12/23/19 11:05 Troponin I 0.059 ng/mL (< 0.028) H 12/23/19 17:04 - Telemetry Sinus rhythms and dysrhythmias: sinus rhythm - Assessment/Plan Assessment/Plan: 1. Chest pain, atypical likely non cardiac 2. ESRD 3. Hypotension during dialysis. 4. Pericardial effusion, large. PLAN: - Continue plan to dialyze. - Stress test was normal. No plan for LHC at this time. - Large sized effusion. He is hypotensive during dialysis. Some fluid has been taken out. Echo was done yesterday, Will repeat tomorrow and if effusion still there will consider pericardial window.
--- NOTE | 2019-12-26 17:27 | PRG ---
DATE OF SERVICE: 12/26/2019 SUBJECTIVE: The patient was seen and examined at bedside and overnight events noted. The patient denies any shortness of breath or chest pain or palpitation. No history of nausea or vomiting or diarrhea or fever or chills or cramps. OBJECTIVE: GENERAL: This is a well-built male, in no apparent distress. VITAL SIGNS: Temperature 97.8. Heart rate 91. Respiratory rate 20. Blood pressure 100/59. HEENT: Atraumatic, normocephalic. Oral mucosa is moist NECK: Supple. CARDIOVASCULAR: S1, S2 heard. Rate and rhythm regular. RESPIRATORY: Clear to auscultation. GASTROINTESTINAL: Abdomen is soft. MUSCULOSKELETAL: No tenderness. No edema. DERMATOLOGIC: No skin rash. NEUROLOGIC: Alert and awake and oriented X3. No focal neurologic deficits. Moving all the extremities. PSYCHIATRIC: Mood and affect normal. LABORATORY DATA: Potassium is 4.7, BUN is 52, creatinine is 7.3. ASSESSMENT AND PLAN: 1. End-stage renal disease, on hemodialysis. We will continue on daily dialysis for fluid removal. 2. Chronic hypotension. I had a discussion with Dr. Jason and planned to have a repeat echo to monitor the pericardial effusion. 3. Pericardial effusion. 4. Hyponatremia, limit fluid intake. 5. Hyperkalemia. 6. Acidosis. 7. History of cirrhosis. 8. Anemia of chronic disease. We will continue close monitoring. Continue vancomycin with dialysis. Monitor vancomycin level and dose based on the level. We will follow. Job ID: [id number]
--- NOTE | 2019-12-26 18:19 | PDOC.HOSPP ---
- Subjective Encounter Date: 12/26/19 Subjective: Seen and examined during HD. No new complaints - Objective Vital Signs & Weight: Vital Signs (12 hours) Temp Pulse Resp BP BP Pulse Ox 12/26/19 15:49 97.8 F 91 20 100/59 L 94 L 12/26/19 11:10 97 F L 91 20 92/58 L 95 12/26/19 08:16 98 F 86 18 106/64 95 Weight Admit Weight 228 lb 1.6 oz Weight 228 lb 1.6 oz I&O: 12/25/19 12/26/19 12/27/19 06:59 06:59 06:59 Intake Total 600 Output Total 1350 Balance -750 Result Diagrams: 12/26/19 04:06 12/26/19 04:06 Additional Labs: Accuchecks 12/26/19 12/26/19 12/25/19 17:05 05:50 20:33 POC Glucose 175 H 127 H 123 H Hospitalist ROS - Medication Medications: Active Medications Generic Name Dose Route Start Last Admin Trade Name Freq PRN Reason Stop Dose Admin Aspirin 81 mg 12/24/19 09:00 12/26/19 11:35 Ecotrin PO Not Given DAILY REYNALDO Atorvastatin Calcium 20 mg 12/23/19 21:00 12/25/19 20:22 Lipitor PO 20 mg HS REYNALDO Administration Guaifenesin/Codeine Phosphate 5 ml 12/26/19 00:08 12/26/19 00:22 Robitussin Ac PO 5 ml Q4H PRN Administration Cough Heparin Sodium (Porcine) 5,000 units 12/23/19 15:00 12/26/19 15:52 Heparin SC 5,000 units TID REYNALDO Administration Insulin Glargine 20 units/ 0.2 mls @ 0 mls/hr 12/24/19 09:00 12/26/19 11:36 Miscellaneous Medication SC Not Given QAM REYNALDO Vancomycin HCl 1.25 gm/ Sodium 250 mls @ 166.667 mls/hr 12/23/19 18:00 10:35 Chloride IVPB 250 mls WILLCALL REYNALDO Administration Insulin Human Regular 0 units 12/23/19 13:39 12/24/19 19:05 Humulin R SC 6 unit .MODERATE SLIDING SC PRN Administration Moderate Correctional Scale Metoprolol Tartrate 12.5 mg 12/23/19 21:00 12/26/19 11:36 Lopressor PO Not Given BID REYNALDO Phenyleph/Shark Oil/[place] Butter 1 supp 12/24/19 11:53 12/24/19 13:34 Preparation H WI 1 supp Q6H PRN Administration Hemorrhoids - Exam General Appearance: NAD, awake alert ENT: normocephalic atraumatic Neck: supple, no JVD Heart: RRR, no murmur, no gallops, no rubs, normal peripheral pulses Respiratory: no tachypnea, rhonchi Gastrointestinal: soft, non-tender, non-distended Extremities: no cyanosis, no clubbing Hosp A/P (1) Chest pain Code(s): R07.9 - CHEST PAIN, UNSPECIFIED Status: Acute (2) ESRD (end stage renal disease) on dialysis Code(s): N18.6 - END STAGE RENAL DISEASE; Z99.2 - DEPENDENCE ON RENAL DIALYSIS Status: Acute (3) Volume overload Code(s): E87.70 - FLUID OVERLOAD, UNSPECIFIED Status: Acute - Plan Negative stress test HD per nephrology. PD cath placement on .
[2019-12-26] MEDS: Atorvastatin Calcium 20 MG TAB PO SCH (21:09)
[2019-12-27 05:28] LABS: Anion Gap 20 mmol/L (10-20); BUN (Urea Nitrogen) 45 mg/dL (8.4-25.7); Calc. Creatinine Clearance 18 mL/min (70-130); Calcium 8.4 mg/dL (7.8-10.44); Carbon Dioxide 18 mmol/L (22-29); Chloride 96 mmol/L (98-107); Estimated GFR-MDRD 8; Glucose 247 mg/dL (70-105); Potassium 5.5 mmol/L (3.5-5.1); Sodium 128 mmol/L (136-145)
[2019-12-27 05:44] LABS: Band 2 % (5-11); Hemoglobin 12.3 g/dL (14.0-18.0); Lymphocytes 15 % (21-51); MDiff Complete? YES; Mean Corpuscular HGB CONC 32.9 g/dL (32.0-36.0); Mean Corpuscular Hemoglobin 32.3 pg (27.0-31.0); Mean Platelet Volume 10.7 fL (7.4-10.4); Monocytes 11 % (0-10); Neutrophil 72 % (42-75); Platelet Count 99 thou/uL (130-400); Platelet Morphology Comment Appears Decreased; RBC Distribution Width 19.5 % (11.5-14.5); Target Cells SLIGHT = 2-5 cells (100X) (0-1/hpf); White Blood Cell (WBC) Count 5.8 thou/uL (4.8-10.8)
[2019-12-27 05:45] LABS: Hep C IgG Ab Non-Reactive (NonReactive); Hep C Index 0.14 S/CO (0-0.79)
[2019-12-27] MEDS: Insulin Regular 300 UNITS/3 ML VIAL SC PRN (06:23)
[2019-12-27] MEDS: Insulin Glargine 20 UNITS in Pre-Filled Syringe 1 EACH SC SCH (09:47)
[2019-12-27] MEDS: Aspirin 81 mg Enteric Coated Tablet PO SCH (09:47)
[2019-12-27] MEDS: Heparin 5,000 UNITS/ML VIAL SC SCH ×3 (09:47→23:50)
[2019-12-27] MEDS: Metoprolol Tartrate 25 MG TAB PO SCH ×2 (09:48→23:50)
[2019-12-27] MEDS ORDERED: Dexamethasone 20 MG/5 ML VIAL ONE (10:59)
[2019-12-27] MEDS ORDERED: PHENYLEPHRINE-NS 100 MCG/ML 10 ML SYRINGE ONE (10:59)
[2019-12-27] MEDS ORDERED: Rocuronium Bromide 10 MG/ML (10ML VIAL) ONE (10:59)
[2019-12-27] MEDS ORDERED: Glycopyrrolate 0.2 MG/ML 5 ML SYRINGE ONE (10:59)
[2019-12-27] MEDS ORDERED: PROPOFOL 200 MG/20 ML VIAL ONE (10:59)
[2019-12-27] MEDS ORDERED: Lidocaine 1% PF 5 ML VIAL ONE (10:59)
[2019-12-27] MEDS ORDERED: Ondansetron PF 4 MG/2 ML Vial ONE (10:59)
--- NOTE | 2019-12-27 11:24 | PRG ---
DATE OF SERVICE: 12/27/2019 SUBJECTIVE: Patient was seen and examined at bedside and overnight events noted. Patient denies any shortness of breath or chest pain or palpitation. No history of nausea or vomiting or diarrhea or fever or chills or cramps. OBJECTIVE: GENERAL: This is a well-built male, in no apparent distress. VITAL SIGNS: Temperature 97.8. Heart rate 93. Respiratory rate 20. Blood pressure 101/67. HEENT: Atraumatic, normocephalic. Oral mucosa is moist NECK: Supple. CARDIOVASCULAR: S1, S2 heard. Rate and rhythm regular. RESPIRATORY: Clear to auscultation. GASTROINTESTINAL: Abdomen is soft. MUSCULOSKELETAL: No tenderness. No edema. DERMATOLOGIC: No skin rash. NEUROLOGIC: Alert and awake and oriented X3. No focal neurologic deficits. Moving all the extremities. PSYCHIATRIC: Mood and affect normal. LABORATORY DATA: Potassium 5.5, BUN is 45, creatinine is 6.9. ASSESSMENT AND PLAN: 1. End-stage renal disease. Continue on hemodialysis. 2. Large pericardial effusion. Might need pericardial window if pericardial effusion not better with dialysis. Plan is to have daily dialysis for ultrafiltration and fluid removal. 3. Hyponatremia. Limit fluid intake. 4. Hyperkalemia. 5. Acidosis. 6. Cirrhosis. 7. Dialysis access and needs a new tunneled dialysis catheter. We will have surgery look into that and also need a peritoneal dialysis catheter. 8. Anemia of chronic disease. 9. History of cirrhosis. 10. Chronic hypotension. Appreciate help from Cardiology and General Surgery and we will continue dialysis. Plan to have daily dialysis if tolerated. We will use albumin during dialysis for hypotension and monitor closely. Job ID: [id number]
[2019-12-27] MEDS ORDERED: Albumin 25% 25 GM/100 ML BOT IVPB ONE (12:00)
[2019-12-27] MEDS ORDERED: Heparin 10,000 UNITS/ 10 ML VIAL ONE (12:30)
--- NOTE | 2019-12-27 15:10 | PDOC.HOSPP ---
- Subjective Encounter Date: 12/27/19 Subjective: He was seen after dialysis. No new complains. - Objective Vital Signs & Weight: Vital Signs (12 hours) Temp Pulse Resp BP Pulse Ox 12/27/19 11:35 98.2 F 91 16 88/62 L 96 12/27/19 07:26 98.9 F 91 18 89/58 L 95 12/27/19 03:27 97.8 F 93 20 101/67 96 Weight Admit Weight 228 lb 1.6 oz Weight 228 lb 1.6 oz I&O: 12/26/19 12/27/19 12/28/19 06:59 06:59 06:59 Intake Total 1440 Balance 1440 Result Diagrams: 12/27/19 04:14 12/27/19 04:14 Additional Labs: Accuchecks 12/27/19 12/26/19 12/26/19 05:53 20:40 17:05 POC Glucose 302 H 180 H 175 H Hospitalist ROS - Medication Medications: Active Medications Generic Name Dose Route Start Last Admin Trade Name Freq PRN Reason Stop Dose Admin Aspirin 81 mg 12/24/19 09:00 12/27/19 09:47 Ecotrin PO Not Given DAILY [facility] Atorvastatin Calcium 20 mg 12/23/19 21:00 12/26/19 21:09 Lipitor PO 20 mg HS REYNALDO Administration Guaifenesin/Codeine Phosphate 5 ml 12/26/19 00:08 12/26/19 00:22 Robitussin Ac PO 5 ml Q4H PRN Administration Cough Heparin Sodium (Porcine) 5,000 units 12/23/19 15:00 12/27/19 14:28 Heparin SC Not Given TID [facility] Insulin Glargine 20 units/ 0.2 mls @ 0 mls/hr 12/24/19 09:00 12/27/19 09:47 Miscellaneous Medication SC Not Given QAM [facility] Insulin Human Regular 0 units 12/23/19 13:39 12/27/19 06:23 Humulin R SC 8 unit .MODERATE SLIDING SC PRN Administration Moderate Correctional Scale Metoprolol Tartrate 12.5 mg 12/23/19 21:00 12/27/19 09:48 Lopressor PO Not Given BID [facility] Phenyleph/Shark Oil/[place] Butter 1 supp 12/24/19 11:53 12/24/19 13:34 Preparation H OR 1 supp Q6H PRN Administration Hemorrhoids - Exam General Appearance: awake alert ENT: normocephalic atraumatic Neck: supple, no JVD Heart: RRR, no murmur, no gallops, no rubs, normal peripheral pulses Respiratory: CTAB Gastrointestinal: soft, normal bowel sounds Neurological: cranial nerve grossly intact, no focal deficits Hosp A/P (1) Chest pain Code(s): R07.9 - CHEST PAIN, UNSPECIFIED Status: Acute (2) ESRD (end stage renal disease) on dialysis Code(s): N18.6 - END STAGE RENAL DISEASE; Z99.2 - DEPENDENCE ON RENAL DIALYSIS Status: Acute (3) Volume overload Code(s): E87.70 - FLUID OVERLOAD, UNSPECIFIED Status: Acute - Plan Negative stress test HD per nephrology. Plan for PD catheter placement today.
[2019-12-27] MEDS ORDERED: Fentanyl 100 MCG/2 ML VIAL ONE (17:45)
[2019-12-27] MEDS ORDERED: Bupivacaine PF 0.5% 30 ML VIAL ONE (18:12)
[2019-12-27] MEDS ORDERED: Heparin 10,000 UNITS/1 ML VIAL ONE (18:12)
[2019-12-27] MEDS ORDERED: Sodium Chloride 0.9% 30 ML ONE (18:12)
[2019-12-27] MEDS ORDERED: Lidocaine 1% w/Epinephrine 1:100K 20 ML VIAL ONE (18:12)
[2019-12-27] MEDS ORDERED: Heparin 5,000 UNITS/ML VIAL ONE (18:12)
[2019-12-27] MEDS ORDERED: Protamine Sulfate 50 MG/5 ML VIAL ONE (18:12)
[2019-12-27] MEDS ORDERED: Phenylephrine 10 MG/ML VIAL ONE (18:28)
[2019-12-27] MEDS ORDERED: Ketamine 50 MG/ML (10ML VIAL) ONE (18:28)
[2019-12-27] MEDS ORDERED: Ondansetron HCl/PF 4 MG/2 ML Vial IVP PRN (19:38)
[2019-12-27] MEDS ORDERED: traMADol HCl 50 MG TAB PO PRN (20:50)
--- NOTE | 2019-12-27 21:22 | RAD ---
PORTABLE CHEST ONE VIEW: 12/27/19 at 8:41 p.m. HISTORY: Chest pain. FINDINGS/IMPRESSION: Comparison made with exam of 12/23/19. Right sided Port-A-Cath remains in place. The heart size is borderline. There are small bilateral ple ural effusions. No pneumothoraces or jese pulmonary edema is seen. A left subclavian central venous catheter has been placed which crosses the midline with tip in the projection of the right subclavia n vein. POS: OFF
[2019-12-27] MEDS: Atorvastatin Calcium 20 MG TAB PO SCH (23:50)
[2019-12-28 00:14] LABS: Anion Gap 18 mmol/L (10-20); BUN (Urea Nitrogen) 35 mg/dL (8.4-25.7); Calc. Creatinine Clearance 20 mL/min (70-130); Calcium 8.3 mg/dL (7.8-10.44); Carbon Dioxide 20 mmol/L (22-29); Chloride 98 mmol/L (98-107); Estimated GFR-MDRD 10; Glucose 189 mg/dL (70-105); Magnesium 2.3 mg/dL (1.6-2.6); Potassium 4.9 mmol/L (3.5-5.1); Sodium 131 mmol/L (136-145)
[2019-12-28] MEDS ORDERED: Meperidine HCl/PF 25 MG/ML VIAL SLOW IVP SCH (00:15)
[2019-12-28 00:16] LABS: #Lymphocytes 0.8 thou/uL (1.20-3.40); #Monocytes 0.5 thou/uL (0.11-0.59); #Neutrophils 4.6 thou/uL (1.40-6.50); %Basophils 0.2 % (0.0-1.0); %Eosinophils 0.3 % (0.0-10.0); %Monocytes 8.8 % (0.0-10.0); %Neutrophils 77.6 % (42.0-75.0); Hemoglobin 12.8 g/dL (14.0-18.0); Mean Corpuscular HGB CONC 32.4 g/dL (32.0-36.0); Mean Corpuscular Volume 98.8 fL (78.0-98.0); Mean Platelet Volume 11.3 fL (7.4-10.4); Platelet Count 97 thou/uL (130-400); RBC Distribution Width 19.6 % (11.5-14.5)
--- NOTE | 2019-12-28 03:26 | OP ---
DATE OF PROCEDURE: 12/27/2019 PREOPERATIVE DIAGNOSIS: End-stage renal disease, right internal jugular cuffed tunneled hemodialysis catheter placed in [place]. POSTOPERATIVE DIAGNOSES: 1. End-stage renal disease, right internal jugular cuffed tunneled hemodialysis catheter placed in [place]. Desires peritoneal dialysis. 2. Outflow obstruction, left internal jugular vein. 3. Thrombosis, left antecubital vein, iatrogenic thrombus since hospitalization. PROCEDURES PERFORMED: 1. Laparoscopic peritoneal dialysis catheter. 2. Laparoscopic omentopexy. Catheter exiting left lower quadrant. 3. Left arm primary fistula with venous thrombectomy catheter, outflow primary cephalic vein, inflow proximal radial artery, left subclavian vein central line (I could cannulate the left internal jugular vein, but the J-wire not thread). DESCRIPTION OF PROCEDURE: The patient was taken to the operating room, where under general anesthesia, abdomen and left upper extremity was prepared with ChloraPrep and draped in routine fashion. Local anesthetic mixture 0.5% Marcaine 30 mL mixed with 1% Xylocaine with epinephrine 20 mL infiltrated in the skin and subcutaneous tissue about the operative site. Bilateral far lateral subcostal incision was made in the abdomen and pneumoperitoneum to 15 mmHg were obtained with a Veress needle, replaced with a 5 port, video laparoscope inserted. Contralateral 5 port placed. A stab incision was made in the left lower quadrant and a counter incision in left paraumbilical created. An 8 mm port was placed through the periumbilical incision, directed caudally through the subcutaneous tissue. Rectus sheath visualized laparoscopically, penetrating the peritoneum and posterior sheath inferiorly. Double cuffed pigtail peritoneal dialysis catheter placed placing the internal cuff in the rectus sheath and external cuff just beneath the skin exit site using the [place] dissector, pulling the catheter out the exit site. Subcutaneous tissue was approximated with 3-0 Monocryl, skin with 4-0 Monocryl. The catheter was flushed with heparinized saline solution. The patient had more than 3 L of ascites evacuated. His liver appeared to be normal. Omentum reached into the pelvis. Therefore, a laparoscopic omentopexy performed with transabdominal wall fixation, 0 Vicryl using a GraNee needle was placed in the omentum to the upper abdominal wall. Pneumoperitoneum and irrigant evacuated. Hemostasis noted. Sterile dressings applied. The patient tolerated the procedure well. Left upper extremity had been prepared with ChloraPrep and draped in routine fashion. I made a longitudinal incision above the antecubital fossa, longitudinally carried down to the skin and subcutaneous tissue, antecubital vein, cephalic vein, basilic vein thrombosed. The patient was given 6000 units of heparin intravenously and vein dissected free. Perforating branch antecubital vein dissected free. Branches were divided between 4-0 silk ties and clips, spatulated over branch point and catheter placed removing thrombus. This thrombus had occurred this hospitalization. I then flushed the vein with heparinized saline solution. There was suboptimal clearance and flow in the basilic vein, although he has questionable patency. The proximal brachial artery dissected free and after adequate circulation time with heparin, proximal radial artery clamped proximally and distally, longitudinal arteriotomy was made sharply, elongated with [place]orga scissors and perforating branch antecubital vein anastomosed to the proximal artery with continuous suture of 6-0 Prolene. Other branches ligated with 4-0 silk ties and vascular clamps released. There was good flow in the cephalic vein outflow and suboptimal or no flow in the basilic vein. Good hemostasis was noted. The patient was given 50 mg of protamine by Anesthesia. Subcutaneous tissue was approximated with 3-0 Monocryl, skin with subdermal 4-0 Monocryl. Local anesthetic was infiltrated in the skin and subcutaneous tissue. Left side of the neck and chest prepared with ChloraPrep and draped in routine fashion. Using ultrasound guidance, I cannulated the internal jugular vein on the left. The J-wire would not thread. This site was abandoned. Left infraclavicular approach made and trocar catheter cannulated subclavian vein. J-wire threaded, trocar catheter removed. Skin site was enlarged sharply. Seldinger technique used to place a triple-lumen catheter, securing with 3-0 silk sutures. Sterile dressing applied. The patient tolerated the procedure well. Job ID: [id number]
[2019-12-28 06:33] LABS: Anion Gap 22 mmol/L (10-20); BUN (Urea Nitrogen) 40 mg/dL (8.4-25.7); Calc. Creatinine Clearance 19 mL/min (70-130); Calcium 8.3 mg/dL (7.8-10.44); Carbon Dioxide 18 mmol/L (22-29); Chloride 97 mmol/L (98-107); Estimated GFR-MDRD 9; Glucose 195 mg/dL (70-105); Potassium 5.7 mmol/L (3.5-5.1); Sodium 131 mmol/L (136-145)
[2019-12-28] MEDS ORDERED: Heparin 10,000 UNITS/ 10 ML VIAL ONE (09:00)
[2019-12-28 09:51] LABS: Hemoglobin 12.2 g/dL (14.0-18.0); Mean Corpuscular HGB CONC 32.5 g/dL (32.0-36.0); Mean Corpuscular Hemoglobin 31.8 pg (27.0-31.0); Mean Corpuscular Volume 97.9 fL (78.0-98.0); Mean Platelet Volume 11.1 fL (7.4-10.4); Platelet Count 102 thou/uL (130-400); RBC Distribution Width 19.6 % (11.5-14.5); Red Blood Cell (RBC) Count 3.85 mill/uL (4.70-6.10); White Blood Cell (WBC) Count 6.4 thou/uL (4.8-10.8)
[2019-12-28 10:00] LABS: Band 3 % (5-11); Lymphocytes 11 % (21-51); MDiff Complete? YES; Monocytes 6 % (0-10); Neutrophil 80 % (42-75); Platelet Morphology Comment Appears Decreased; Polychromasia SLIGHT = 2-3 cells (100X) (0-2/hpf); Schistocytes SLIGHT = 2-5 cells (100X) (0-1/hpf); Target Cells SLIGHT = 2-5 cells (100X) (0-1/hpf)
[2019-12-28] MEDS ORDERED: Albumin 25% 25 GM/100 ML BOT IVPB SCH (10:00)
--- NOTE | 2019-12-28 11:42 | PRG ---
DATE OF SERVICE: 12/28/2019 SUBJECTIVE: Patient was seen and examined at bedside and overnight events noted. Patient denies any shortness of breath or chest pain or palpitation. No history of nausea or vomiting or diarrhea or fever or chills or cramps. OBJECTIVE: GENERAL: This is a well-built male in no apparent distress. VITAL SIGNS: Temperature 98.5. Heart rate 97. Respiratory rate 20. Blood pressure 100/66. HEENT: Atraumatic, normocephalic. Oral mucosa is moist NECK: Supple. CARDIOVASCULAR: S1, S2 heard. Rate and rhythm regular. RESPIRATORY: Clear to auscultation. GASTROINTESTINAL: Abdomen is soft. MUSCULOSKELETAL: No tenderness. No edema. DERMATOLOGIC: No skin rash. NEUROLOGIC: Alert and awake and oriented X3. No focal neurologic deficits. Moving all the extremities. PSYCHIATRIC: Mood and affect normal. LABORATORY DATA: Potassium 5.7, BUN is 40, creatinine is 6.5. ASSESSMENT AND PLAN: 1. End-stage renal disease. Continue on hemodialysis daily until fluid removal is achieved. 2. Large pericardial effusion. Follow with Cardiology. Repeat echo to be done today. 3. Hyponatremia. Limit fluid intake to 1500 mL. 4. Hyperkalemia. We will ask surgeon to look at his tunneled catheter, may be not getting cleaning. 5. Dialysis access. Appreciate help from Surgery for putting fistula catheter and prior PD catheter. 6. Acidosis, chronic. 7. Questionable history of cirrhosis by Dr. Chi. Liver looked okay intraoperatively. 8. Chronic hypotension, most likely cardiac related. Follow with Cardiology. 9. Stopped vancomycin yesterday. Cellulitic rash is less likely to be cellulitis. Hepatitis C is negative. EMILY is pending. Might need rheumatology or dermatology evaluation later. Plan is to continue on dialysis as tolerated. PD catheter placed and we will let PD nurse know to have the home visit and other arrangements done. Job ID: [id number]
[2019-12-28] MEDS: Metoprolol Tartrate 25 MG TAB PO SCH ×2 (13:57→22:19)
[2019-12-28] MEDS: Aspirin 81 mg Enteric Coated Tablet PO SCH (13:59)
[2019-12-28] MEDS: Insulin Glargine 20 UNITS in Pre-Filled Syringe 1 EACH SC SCH (14:07)
[2019-12-28] MEDS: Heparin 5,000 UNITS/ML VIAL SC SCH ×2 (14:20→22:18)
[2019-12-28] MEDS ORDERED: Sodium Chloride 0.9% 250 ML 250 ML IVPB SCH (15:00)
[2019-12-28 15:09] LABS: ANA Symphony (Qualitative) Negative (Negative); ANA Symphony (Quantitative) 0.4 Ratio (< 0.7 Negative); dsDNA IgG Antibody 0.7 IU/mL (<10 Negative)
--- NOTE | 2019-12-28 18:13 | PRG ---
DATE OF SERVICE: 12/28/2019 Mr. North is doing well after 12/27/2019, placement of laparoscopic peritoneal dialysis catheter, laparoscopic omentopexy, left arm primary fistula with venous thrombectomy with a Bakari catheter. Outflow seemed to be primarily the cephalic vein, inflow proximal radial artery. The left subclavian vein central line was placed because the left internal jugular vein outflow was occluded. Findings in his left arm, venous thrombus is related to IV access in the antecubital area and blood draws and left forearm IV. He had thrombus in his cephalic vein forearm, basilic vein and cephalic vein upper arm. Perforating branch of antecubital vein also had thrombus, this thrombus was acute. It was removed with venous thrombectomy and it is hoped that his fistula will mature, but if it then he will need access in his right arm. For this reason, we should avoid IV access and blood draws from his right arm as he may need a fistula in this in the future. The patient's dressing on his left lower quadrant abdomen should remain intact and not be changed. I have discussed these findings and recommendations with the patient and his today. The patient should see the peritoneal dialysis nurse in one week to change his peritoneal dialysis dressings and begin educating on peritoneal dialysis. I have stressed the importance of that visit within the next 3 to 7 days. The patient should exercise the left arm and use it unrestricted. He should avoid IV blood draws above his wrist in either arm. At this point, I will see him as needed and the patient could follow up in my office in 3 to 4 weeks. Job ID: [id number]
--- NOTE | 2019-12-28 18:48 | PDOC.CPN ---
- Subjective Date: 12/28/19 Time: 18:46 Interval history: He continues to have hypotension with dialysis. No more chest pain. - Review of Systems General: denies: fever/chills, weight/appetite/sleep changes, night sweats, fatigue Respiratory: denies: cough, congestion, shortness of breath, exercise intolerance Cardiovascular: denies: chest pain, palpitation, edema, paroxysmal nocturnal dyspnea, orthopnea Gastrointestinal: denies: nausea, vomiting, diarrhea, constipation, abd pain, GI bleeding Musculoskeletal: reports: pain. denies: tenderness, stiffness, swelling, arthritis/arthralgias Neurological: denies: numbness, syncope, seizure, weakness - Objective Allergies/Adverse Reactions: Allergies Allergy/AdvReac Type Severity Reaction Status Date / Time No Known Allergies Allergy Verified 12/23/19 14:30 Visit Medications: Current Medications Acetaminophen (Tylenol) 1,000 mg PO Q6H PRN PRN Reason: Moderate to Severe Pain (6-10) Hydrocodone Bitart/Acetaminophen ([place] 5/325) 1 tab PO Q12H PRN PRN Reason: Moderate Pain (4-6) Albumin Human (Albumin 25%) 25 gm IVPB ASDIR [facility] Stop: 12/29/19 10:01 Last Admin: 12/28/19 10:14 Dose: 25 gm Aspirin (Ecotrin) 81 mg PO DAILY [facility] Last Admin: 12/28/19 13:59 Dose: 81 mg Atorvastatin Calcium (Lipitor) 20 mg PO HS [facility] Last Admin: 12/27/19 23:50 Dose: Not Given Dextrose/Water (Dextrose 50%) 25 gm SLOW IVP PRN PRN PRN Reason: Hypoglycemia Glucagon (Glucagon) 1 mg IM PRN PRN PRN Reason: Hypoglycemia Guaifenesin/Codeine Phosphate (Robitussin Ac) 5 ml PO Q4H PRN PRN Reason: Cough Last Admin: 12/26/19 00:22 Dose: 5 ml Heparin Sodium (Porcine) (Heparin) 5,000 units SC BID [facility] Insulin Glargine 20 units/ (Miscellaneous Medication) 0.2 mls @ 0 mls/hr SC QAM [facility] Last Admin: 12/28/19 14:07 Dose: 0.2 mls Dextrose/Water (D5w) 1,000 mls @ 0 mls/hr IV .Q0M PRN PRN Reason: Hypoglycemia Insulin Human Regular (Humulin R) 0 units SC .MODERATE SLIDING SC PRN PRN Reason: Moderate Correctional Scale Last Admin: 12/27/19 06:23 Dose: 8 unit Metoprolol Tartrate (Lopressor) 12.5 mg PO BID [facility] Last Admin: 12/28/19 13:57 Dose: Not Given Nitroglycerin (Nitrostat) 0.4 mg SL Q5MIN PRN PRN Reason: Chest Pain Last Admin: 12/28/19 13:29 Dose: 0.4 mg Phenyleph/Shark Oil/[place] Butter (Preparation H) 1 supp [place] Q6H PRN PRN Reason: Hemorrhoids Last Admin: 12/24/19 13:34 Dose: 1 supp Tramadol HCl (Ultram) 50 mg PO Q4H PRN PRN Reason: Mild-Moderate Pain (1-5) Vital Signs & Weight: Vital Signs Temp Pulse Resp BP BP Pulse Ox 12/28/19 16:00 98.7 F 89 16 85/51 L 98 12/28/19 13:54 82/49 L 12/28/19 13:43 67/48 L 12/28/19 13:02 97.8 F 93 18 83/57 L 96 12/28/19 07:43 98.5 F 97 20 100/66 95 Admit Weight 228 lb 1.6 oz Weight 228 lb 1.6 oz - Physical Exam General: alert & oriented x3 HEENT: mucus membranes moist Neck: supple neck Cardiac: regular rate and rhythm Lungs: clear to auscultation Neuro: grossly intact Abdomen: active bowel sounds Extremities: 1+ LE edema Skin: clear Musculoskeletal: no pain - Labs Result Diagrams: 12/28/19 06:05 12/28/19 06:05 Troponin/CKMB CK-MB (CK-2) 3.7 ng/mL (0-6.6) 12/23/19 11:05 Troponin I 0.059 ng/mL (< 0.028) H 12/23/19 17:04 - Telemetry Sinus rhythms and dysrhythmias: sinus rhythm - Assessment/Plan Assessment/Plan: 1. Chest pain, atypical likely non cardiac 2. ESRD 3. Hypotension during dialysis. 4. Pericardial effusion, large. PLAN: - Continue plan to dialyze. - Stress test was normal. No plan for LHC at this time. - Large sized effusion. He is hypotensive during dialysis. Echo showed worsening effusion. Will ask CT surgery to evaluate for window to make sure this is not the cause of his hypotension during dialysis.
--- NOTE | 2019-12-28 20:08 | PDOC.HOSPP ---
- Subjective Encounter Date: 12/28/19 Subjective: The patient was seen and examined during dialysis. He had no complaints at that time. However, after dialysis the patient became hypotensive and required bolus of normal saline 250 mL - Objective Vital Signs & Weight: Vital Signs (12 hours) Temp Pulse Resp BP BP Pulse Ox 12/28/19 19:53 98.3 F 85 18 81/52 L 97 12/28/19 16:00 98.7 F 89 16 85/51 L 98 12/28/19 13:54 82/49 L 12/28/19 13:43 67/48 L 12/28/19 13:02 97.8 F 93 18 83/57 L 96 Weight Admit Weight 228 lb 1.6 oz Weight 228 lb 1.6 oz I&O: 12/27/19 12/28/19 12/29/19 06:59 06:59 06:59 Intake Total 1440 0 610 Output Total 1100 Balance 1440 0 -490 Result Diagrams: 12/28/19 06:05 12/28/19 06:05 Additional Labs: Accuchecks 12/28/19 12/28/19 12/28/19 16:34 12:08 06:12 POC Glucose 138 H 127 H 178 H 12/27/19 12/27/19 12/27/19 23:11 19:29 15:56 POC Glucose 205 H 183 H 229 H Hospitalist ROS - Medication Medications: Active Medications Generic Name Dose Route Start Last Admin Trade Name Freq PRN Reason Stop Dose Admin Albumin Human 25 gm 12/28/19 10:00 12/28/19 10:14 Albumin 25% IVPB 12/29/19 10:01 25 gm ASDIR [facility] Administration Aspirin 81 mg 12/24/19 09:00 12/28/19 13:59 Ecotrin PO 81 mg DAILY [facility] Administration Atorvastatin Calcium 20 mg 12/23/19 21:00 12/27/19 23:50 Lipitor PO Not Given HS [facility] Guaifenesin/Codeine Phosphate 5 ml 12/26/19 00:08 12/26/19 00:22 Robitussin Ac PO 5 ml Q4H PRN Administration Cough Insulin Glargine 20 units/ 0.2 mls @ 0 mls/hr 12/24/19 09:00 12/28/19 14:07 Miscellaneous Medication SC 0.2 mls QAM [facility] Administration Insulin Human Regular 0 units 12/23/19 13:39 12/27/19 06:23 Humulin R SC 8 unit .MODERATE SLIDING SC PRN Administration Moderate Correctional Scale Metoprolol Tartrate 12.5 mg 12/23/19 21:00 12/28/19 13:57 Lopressor PO Not Given BID [facility] Nitroglycerin 0.4 mg 12/23/19 13:40 12/28/19 13:29 Nitrostat SL 0.4 mg Q5MIN PRN Administration Chest Pain Phenyleph/Shark Oil/[place] Butter 1 supp 12/24/19 11:53 12/24/19 13:34 Preparation H NV 1 supp Q6H PRN Administration Hemorrhoids - Exam ENT: normocephalic atraumatic Neck: supple, no JVD Heart: RRR, no murmur, no gallops, no rubs Respiratory: no wheezes, no tachypnea Gastrointestinal: soft, non-tender, non-distended, normal bowel sounds Hosp A/P (1) Chest pain Code(s): R07.9 - CHEST PAIN, UNSPECIFIED Status: Acute (2) ESRD (end stage renal disease) on dialysis Code(s): N18.6 - END STAGE RENAL DISEASE; Z99.2 - DEPENDENCE ON RENAL DIALYSIS Status: Acute (3) Volume overload Code(s): E87.70 - FLUID OVERLOAD, UNSPECIFIED Status: Acute - Plan Negative stress test HD per nephrology. Status post peritoneal dialysis placement. Plan for outpatient follow-up with surgery in 1 week. If the patient is stable, we will plan to discharge him home tomorrow.
[2019-12-28] MEDS: Atorvastatin Calcium 20 MG TAB PO SCH (22:18)
[2019-12-29 04:12] LABS: Anion Gap 16 mmol/L (10-20); BUN (Urea Nitrogen) 35 mg/dL (8.4-25.7); Calc. Creatinine Clearance 22 mL/min (70-130); Calcium 8.2 mg/dL (7.8-10.44); Carbon Dioxide 20 mmol/L (22-29); Chloride 97 mmol/L (98-107); Estimated GFR-MDRD 11; Glucose 74 mg/dL (70-105); Sodium 128 mmol/L (136-145)
[2019-12-29] MEDS: HYDROcodone/Acetaminophen 5/325 mg Tablet PO PRN (04:49)
[2019-12-29] MEDS: Dextrose 50% Abboject 50 ML SYRINGE SLOW IVP PRN (05:26)
[2019-12-29] MEDS: Aspirin 81 mg Enteric Coated Tablet PO SCH (09:30)
[2019-12-29] MEDS: Heparin 5,000 UNITS/ML VIAL SC SCH ×2 (09:31→22:31)
[2019-12-29] MEDS: Insulin Glargine 20 UNITS in Pre-Filled Syringe 1 EACH SC SCH (09:32)
[2019-12-29] MEDS: Metoprolol Tartrate 25 MG TAB PO SCH ×2 (09:32→22:32)
[2019-12-29] MEDS: Midodrine HCl 5 MG TAB PO SCH ×3 (09:40→22:32)
[2019-12-29] MEDS ORDERED: Ondansetron PF 4 MG/2 ML Vial ONE (09:47)
[2019-12-29] MEDS ORDERED: Glycopyrrolate 0.2 MG/ML 5 ML SYRINGE ONE (09:47)
[2019-12-29] MEDS ORDERED: Dexamethasone 20 MG/5 ML VIAL ONE (09:47)
[2019-12-29] MEDS ORDERED: PHENYLEPHRINE-NS 100 MCG/ML 10 ML SYRINGE ONE (09:47)
[2019-12-29] MEDS ORDERED: PROPOFOL 200 MG/20 ML VIAL ONE (09:47)
[2019-12-29] MEDS ORDERED: Lidocaine 1% PF 5 ML VIAL ONE (09:47)
[2019-12-29] MEDS ORDERED: Rocuronium Bromide 10 MG/ML (10ML VIAL) ONE (09:47)
--- NOTE | 2019-12-29 12:41 | PRG ---
DATE OF SERVICE: 12/29/2019 SUBJECTIVE: Patient was seen and examined at bedside and overnight events noted. Patient denies any shortness of breath or chest pain or palpitation. No history of nausea or vomiting or diarrhea or fever or chills or cramps. OBJECTIVE: GENERAL: This is a well-built male, in no apparent distress. VITAL SIGNS: Temperature 97.9, heart rate 85, respiratory rate 16, blood pressure 88/53. HEENT: Atraumatic, normocephalic. Oral mucosa is moist NECK: Supple. CARDIOVASCULAR: S1, S2 heard. Rate and rhythm regular. RESPIRATORY: Clear to auscultation. GASTROINTESTINAL: Abdomen is soft. MUSCULOSKELETAL: No tenderness. No edema. DERMATOLOGIC: No skin rash. NEUROLOGIC: Alert and awake and oriented X3. No focal neurologic deficits. Moving all the extremities. PSYCHIATRIC: Mood and affect normal. LABORATORY DATA: Potassium 5.0, BUN is 35, and creatinine is 5.0. ASSESSMENT/PLAN: 1. End-stage renal disease. We will continue on hemodialysis. Plan is to have a daily dialysis, but hard to have ultrafiltration. 2. Large pericardial effusion, I agree with pericardial window. 3. Hyponatremia, limit fluid intake. 4. Hyperkalemia. 5. Dialysis access issues. 6. Acidosis. 7. Chronic hypotension. 8. Skin rash, which is nonblanching. 9. Less likely to be cellulitis and vancomycin stopped. 10. EMILY is also negative. 11. The patient remains hypotensive, but hopefully with pericardial window might get better. We will have close followup. We will attempt to remove fluid with dialysis as tolerated. Plan to have PD dialysis if tolerated next week. We will follow. Job ID: [id number]
[2019-12-29] MEDS ORDERED: Fentanyl 100 MCG/2 ML VIAL ONE ×3 (13:24→16:28)
[2019-12-29] MEDS ORDERED: Phenylephrine 10 MG/ML VIAL ONE (13:25)
[2019-12-29] MEDS ORDERED: Ketamine 50 MG/ML (10ML VIAL) ONE (13:25)
--- NOTE | 2019-12-29 14:44 | PDOC.HOSPP ---
- Subjective Encounter Date: 12/29/19 Subjective: The patient was seen and examined prior to the procedure. He denied any new complaints. All his questions were addressed. - Objective Vital Signs & Weight: Vital Signs (12 hours) Temp Pulse Resp BP Pulse Ox 12/29/19 12:00 97.5 F L 91 16 91/55 L 92 L 12/29/19 08:00 97.9 F 85 16 88/53 L 93 L 12/29/19 04:00 98.5 F 81 18 83/55 L 96 Weight Admit Weight 228 lb 1.6 oz Weight 228 lb 1.6 oz I&O: 12/28/19 12/29/19 12/30/19 06:59 06:59 06:59 Intake Total 0 610 Output Total 1100 Balance 0 -490 Result Diagrams: 12/28/19 06:05 12/29/19 03:36 Additional Labs: Accuchecks 12/29/19 12/29/19 12/29/19 10:29 06:29 05:24 POC Glucose 101 141 H 69 L 12/28/19 12/28/19 12/28/19 20:45 16:34 12:08 POC Glucose 128 H 138 H 127 H Hospitalist ROS - Medication Medications: Active Medications Generic Name Dose Route Start Last Admin Trade Name Freq PRN Reason Stop Dose Admin Hydrocodone Bitart/Acetaminophen 1 tab 12/23/19 22:24 12/29/19 04:49 [place] 5/325 PO 1 tab Q12H PRN Administration Moderate Pain (4-6) Aspirin 81 mg 12/24/19 09:00 12/29/19 09:30 Ecotrin PO Not Given DAILY [facility] Atorvastatin Calcium 20 mg 12/23/19 21:00 12/28/19 22:18 Lipitor PO 20 mg HS [facility] Administration Dextrose/Water 25 gm 12/23/19 13:39 12/29/19 05:26 Dextrose 50% SLOW IVP 25 gm PRN PRN Administration Hypoglycemia Guaifenesin/Codeine Phosphate 5 ml 12/26/19 00:08 12/26/19 00:22 Robitussin Ac PO 5 ml Q4H PRN Administration Cough Heparin Sodium (Porcine) 5,000 units 12/28/19 21:00 12/29/19 09:31 Heparin SC Not Given BID [facility] Insulin Glargine 20 units/ 0.2 mls @ 0 mls/hr 12/24/19 09:00 12/29/19 09:32 Miscellaneous Medication SC Not Given QAM [facility] Insulin Human Regular 0 units 12/23/19 13:39 12/27/19 06:23 Humulin R SC 8 unit .MODERATE SLIDING SC PRN Administration Moderate Correctional Scale Metoprolol Tartrate 12.5 mg 12/23/19 21:00 12/29/19 09:32 Lopressor PO Not Given BID [facility] Midodrine 10 mg 12/29/19 09:00 12/29/19 09:40 Proamatine PO 10 mg TID [facility] Administration Nitroglycerin 0.4 mg 12/23/19 13:40 12/28/19 13:29 Nitrostat SL 0.4 mg Q5MIN PRN Administration Chest Pain Phenyleph/Shark Oil/[place] Butter 1 supp 12/24/19 11:53 12/24/19 13:34 Preparation H HI 1 supp Q6H PRN Administration Hemorrhoids Tramadol HCl 50 mg 12/27/19 20:50 12/29/19 12:20 Ultram PO 50 mg Q4H PRN Administration Mild-Moderate Pain (1-5) - Exam General Appearance: awake alert Eye: PERRL ENT: normocephalic atraumatic Neck: supple, no JVD Heart: RRR, no murmur, no gallops Respiratory: normal chest expansion, rhonchi Gastrointestinal: soft, non-tender Extremities: no cyanosis Neurological: cranial nerve grossly intact, no weakness Hosp A/P (1) Chest pain Code(s): R07.9 - CHEST PAIN, UNSPECIFIED Status: Acute (2) ESRD (end stage renal disease) on dialysis Code(s): N18.6 - END STAGE RENAL DISEASE; Z99.2 - DEPENDENCE ON RENAL DIALYSIS Status: Acute (3) Volume overload Code(s): E87.70 - FLUID OVERLOAD, UNSPECIFIED Status: Acute (4) Pericardial effusion Code(s): I31.3 - PERICARDIAL EFFUSION (NONINFLAMMATORY) Status: Acute - Plan Negative stress test HD per nephrology. Status post peritoneal dialysis Catheter placement. Plan for outpatient follow-up with surgery in 1 week. Recurrent post dialysis hypotension was noted. ECHO showed worsening pericardial effusion. CV surgery consulted for pericardial window.
--- NOTE | 2019-12-29 14:51 | PDOC.CPN ---
- Subjective Date: 12/29/19 Time: 14:49 Interval history: No new issues. BP still borderline low. - Review of Systems General: denies: fever/chills, weight/appetite/sleep changes, night sweats, fatigue Respiratory: denies: cough, congestion, shortness of breath, exercise intolerance Cardiovascular: denies: chest pain, palpitation, edema, paroxysmal nocturnal dyspnea, orthopnea Gastrointestinal: denies: nausea, vomiting, diarrhea, constipation, abd pain, GI bleeding Musculoskeletal: denies: pain, tenderness, stiffness, swelling, arthritis/ arthralgias Neurological: denies: numbness, syncope, seizure, weakness - Objective Allergies/Adverse Reactions: Allergies Allergy/AdvReac Type Severity Reaction Status Date / Time No Known Allergies Allergy Verified 12/23/19 14:30 Visit Medications: Current Medications Acetaminophen (Tylenol) 1,000 mg PO Q6H PRN PRN Reason: Moderate to Severe Pain (6-10) Hydrocodone Bitart/Acetaminophen ([place] 5/325) 1 tab PO Q12H PRN PRN Reason: Moderate Pain (4-6) Last Admin: 12/29/19 04:49 Dose: 1 tab Albumin Human (Albumin 25%) 25 gm IVPB ASDIR [facility] Stop: 12/30/19 13:01 Aspirin (Ecotrin) 81 mg PO DAILY [facility] Last Admin: 12/29/19 09:30 Dose: Not Given Atorvastatin Calcium (Lipitor) 20 mg PO [facility] Last Admin: 12/28/19 22:18 Dose: 20 mg Dextrose/Water (Dextrose 50%) 25 gm SLOW IVP PRN PRN PRN Reason: Hypoglycemia Last Admin: 12/29/19 05:26 Dose: 25 gm Gabapentin (Neurontin) 300 mg PO [facility] Glucagon (Glucagon) 1 mg IM PRN PRN PRN Reason: Hypoglycemia Guaifenesin/Codeine Phosphate (Robitussin Ac) 5 ml PO Q4H PRN PRN Reason: Cough Last Admin: 12/26/19 00:22 Dose: 5 ml Heparin Sodium (Porcine) (Heparin) 5,000 units SC BID [facility] Last Admin: 12/29/19 09:31 Dose: Not Given Insulin Glargine 20 units/ (Miscellaneous Medication) 0.2 mls @ 0 mls[facility] Last Admin: 12/29/19 09:32 Dose: Not Given Dextrose/Water (D5w) 1,000 mls @ 0 mls/hr IV .Q0M PRN PRN Reason: Hypoglycemia Insulin Human Regular (Humulin R) 0 units SC .MODERATE SLIDING SC PRN PRN Reason: Moderate Correctional Scale Last Admin: 12/27/19 06:23 Dose: 8 unit Metoprolol Tartrate (Lopressor) 12.5 mg PO BID [facility] Last Admin: 12/29/19 09:32 Dose: Not Given Midodrine (Proamatine) 10 mg PO TID [facility] Last Admin: 12/29/19 14:42 Dose: Not Given Nitroglycerin (Nitrostat) 0.4 mg SL Q5MIN PRN PRN Reason: Chest Pain Last Admin: 12/28/19 13:29 Dose: 0.4 mg Phenyleph/Shark Oil/[place] Butter (Preparation H) 1 supp [place] Q6H PRN PRN Reason: Hemorrhoids Last Admin: 12/24/19 13:34 Dose: 1 supp Tramadol HCl (Ultram) 50 mg PO Q4H PRN PRN Reason: Mild-Moderate Pain (1-5) Last Admin: 12/29/19 12:20 Dose: 50 mg Vital Signs & Weight: Vital Signs Temp Pulse Resp BP Pulse Ox 12/29/19 12:00 97.5 F L 91 16 91/55 L 92 L 12/29/19 08:00 97.9 F 85 16 88/53 L 93 L 12/29/19 04:00 98.5 F 81 18 83/55 L 96 Admit Weight 228 lb 1.6 oz Weight 228 lb 1.6 oz - Physical Exam General: alert & oriented x3 HEENT: mucus membranes moist Neck: supple neck Cardiac: regular rate and rhythm Lungs: clear to auscultation Neuro: grossly intact Abdomen: active bowel sounds Extremities: 1+ LE edema Skin: clear Musculoskeletal: no pain - Labs Result Diagrams: 12/28/19 06:05 12/29/19 03:36 Troponin/CKMB CK-MB (CK-2) 2.0 ng/mL (0-6.6) 12/29/19 03:36 Troponin I 0.096 ng/mL (< 0.028) H 12/29/19 06:27 - Telemetry Sinus rhythms and dysrhythmias: sinus rhythm - Assessment/Plan Assessment/Plan: 1. Chest pain, atypical. 2. ESRD 3. Hypotension during dialysis. 4. Pericardial effusion, large. PLAN: - Continue plan to dialyze. - Stress test was normal. No plan for C at this time. - Large sized effusion. CT surgery to do window today to see if this will help his BP during dialysis.
[2019-12-29] MEDS ORDERED: Ondansetron HCl/PF 4 MG/2 ML Vial IVP PRN (15:57)
[2019-12-29] MEDS ORDERED: Fentanyl 100 MCG/2 ML VIAL SLOW IVP PRN (16:03)
[2019-12-29] MEDS ORDERED: Promethazine HCl 25 MG/ML VIAL ONE (16:15)
[2019-12-29] MEDS: Ibuprofen 200 MG TAB PO SCH (17:34)
[2019-12-29] MEDS: Gabapentin 300 MG CAP PO SCH (22:32)
[2019-12-29] MEDS: Atorvastatin Calcium 20 MG TAB PO SCH (22:32)
[2019-12-30] MEDS: Ibuprofen 200 MG TAB PO SCH ×3 (02:16→15:23)
[2019-12-30] MEDS: Aspirin 81 mg Enteric Coated Tablet PO SCH (08:07)
[2019-12-30] MEDS: Metoprolol Tartrate 25 MG TAB PO SCH ×2 (08:07→20:07)
[2019-12-30] MEDS: Midodrine HCl 5 MG TAB PO SCH ×3 (08:07→20:07)
--- NOTE | 2019-12-30 08:23 | PDOC.CPN ---
- Subjective Date: 12/30/19 Time: 08:00 Interval history: Patient awake, spouse at bedside. Feels much better today post-pericardial window. Breathing better, denies any chest pain. Only complain is some incisional discomfort when he moves, repositions. Scheduled for HD this morning. Denies angina. Denies N/V/D. No overnight events on telemetry. - Review of Systems General: denies: fever/chills, weight/appetite/sleep changes, night sweats, fatigue Respiratory: reports: cough, shortness of breath (Improving) Cardiovascular: reports: edema (improving) Gastrointestinal: denies: nausea, vomiting, diarrhea, constipation, abd pain, GI bleeding Neurological: denies: numbness, syncope, seizure, weakness - Objective Allergies/Adverse Reactions: Allergies Allergy/AdvReac Type Severity Reaction Status Date / Time No Known Allergies Allergy Verified 12/23/19 14:30 Visit Medications: Current Medications Acetaminophen (Tylenol) 1,000 mg PO Q6H PRN PRN Reason: Moderate to Severe Pain (6-10) Hydrocodone Bitart/Acetaminophen ([place] 5/325) 1 tab PO Q12H PRN PRN Reason: Moderate Pain (4-6) Last Admin: 12/29/19 04:49 Dose: 1 tab Albumin Human (Albumin 25%) 25 gm IVPB ASDIR [facility] Stop: 12/30/19 13:01 Aspirin (Ecotrin) 81 mg PO DAILY [facility] Last Admin: 12/30/19 08:07 Dose: 81 mg Atorvastatin Calcium (Lipitor) 20 mg PO HS [facility] Last Admin: 12/29/19 22:32 Dose: 20 mg Dextrose/Water (Dextrose 50%) 25 gm SLOW IVP PRN PRN PRN Reason: Hypoglycemia Last Admin: 12/29/19 05:26 Dose: 25 gm Fentanyl (Sublimaze) 25 mcg SLOW IVP Q2H PRN PRN Reason: Severe Pain (7-10) Gabapentin (Neurontin) 300 mg PO HS [facility] Last Admin: 12/29/19 22:32 Dose: 300 mg Glucagon (Glucagon) 1 mg IM PRN PRN PRN Reason: Hypoglycemia Guaifenesin/Codeine Phosphate (Robitussin Ac) 5 ml PO Q4H PRN PRN Reason: Cough Last Admin: 12/26/19 00:22 Dose: 5 ml Heparin Sodium (Porcine) (Heparin) 5,000 units SC BID [facility] Last Admin: 12/29/19 22:31 Dose: Not Given Insulin Glargine 20 units/ (Miscellaneous Medication) 0.2 mls @ 0 mls/hr SC QAM [facility] Last Admin: 12/29/19 09:32 Dose: Not Given Dextrose/Water (D5w) 1,000 mls @ 0 mls/hr IV .Q0M PRN PRN Reason: Hypoglycemia Ibuprofen (Motrin) 400 mg PO Q8H [facility] Stop: 12/31/19 09:00 Last Admin: 12/30/19 08:16 Dose: 400 mg Insulin Human Regular (Humulin R) 0 units SC .MODERATE SLIDING SC PRN PRN Reason: Moderate Correctional Scale Last Admin: 12/27/19 06:23 Dose: 8 unit Metoprolol Tartrate (Lopressor) 12.5 mg PO BID [facility] Last Admin: 12/30/19 08:07 Dose: 12.5 mg Midodrine (Proamatine) 10 mg PO TID [facility] Last Admin: 12/30/19 08:07 Dose: 10 mg Nitroglycerin (Nitrostat) 0.4 mg SL Q5MIN PRN PRN Reason: Chest Pain Last Admin: 12/28/19 13:29 Dose: 0.4 mg Phenyleph/Shark Oil/[place] Butter (Preparation H) 1 supp [place] Q6H PRN PRN Reason: Hemorrhoids Last Admin: 12/24/19 13:34 Dose: 1 supp Tramadol HCl (Ultram) 50 mg PO Q4H PRN PRN Reason: Mild-Moderate Pain (1-5) Last Admin: 12/29/19 12:20 Dose: 50 mg Vital Signs & Weight: Vital Signs Temp Pulse Resp BP Pulse Ox 12/30/19 08:03 97.4 F L 88 13 88/65 L 98 12/30/19 04:27 98.1 F 81 17 87/61 L 96 Admit Weight 228 lb 1.6 oz Weight 228 lb 1.6 oz - Quality Measures CV meds: Beta Dennis: Yes, Statin: Yes - Physical Exam General: alert & oriented x3, no apparent distress Neck: no JVD/HJR, no bruit Cardiac: regular rate and rhythm, no murmur, S1/S2 Lungs: clear to auscultation Abdomen: active bowel sounds Extremities: 2+ LE edema (left > right) - Labs Result Diagrams: 12/28/19 06:05 12/29/19 03:36 Troponin/CKMB CK-MB (CK-2) 2.0 ng/mL (0-6.6) 12/29/19 03:36 Troponin I 0.096 ng/mL (< 0.028) H 12/29/19 06:27 - Telemetry Sinus rhythms and dysrhythmias: sinus rhythm - Assessment/Plan Assessment/Plan: 1. Chest pain, atypical-improved s/p window 2. ESRD 3. Hypotension during dialysis. 4. Pericardial effusion, large-s/p pericardial window 12/29 PLAN: - Continue plan to dialyze. - Stress test was normal. No plan for LHC at this time.
[2019-12-30] MEDS: Insulin Glargine 20 UNITS in Pre-Filled Syringe 1 EACH SC SCH (08:32)
[2019-12-30] MEDS: Albumin 25% 25 GM/100 ML BOT IVPB SCH ×2 (09:09→10:08)
[2019-12-30 09:10] LABS: Anion Gap 23 mmol/L (10-20); BUN (Urea Nitrogen) 47 mg/dL (8.4-25.7); Calc. Creatinine Clearance 18 mL/min (70-130); Calcium 8.4 mg/dL (7.8-10.44); Carbon Dioxide 18 mmol/L (22-29); Chloride 93 mmol/L (98-107); Estimated GFR-MDRD 8; Glucose 150 mg/dL (70-105); Potassium 6.1 mmol/L (3.5-5.1); Sodium 128 mmol/L (136-145)
[2019-12-30] MEDS: Heparin 5,000 UNITS/ML VIAL SC SCH (09:52)
[2019-12-30] MEDS ORDERED: Heparin 10,000 UNITS/ 10 ML VIAL ONE ×2 (10:43→10:46)
--- NOTE | 2019-12-30 12:24 | PRG ---
DATE OF SERVICE: 12/30/2019 SUBJECTIVE: Patient was seen and examined at bedside and overnight events noted. Patient denies any shortness of breath or chest pain or palpitation. No history of nausea or vomiting or diarrhea or fever or chills or cramps. OBJECTIVE: GENERAL: This is a well-built male, in no apparent distress. VITAL SIGNS: Temperature 97.4. Heart rate 80. Respiratory rate 18. Blood pressure 188/65. HEENT: Atraumatic, normocephalic. Oral mucosa is moist. NECK: Supple. CARDIOVASCULAR: S1, S2 heard. Rate and rhythm regular. RESPIRATORY: Clear to auscultation. GASTROINTESTINAL: Abdomen is soft. MUSCULOSKELETAL: No tenderness. No edema. DERMATOLOGIC: No skin rash. NEUROLOGIC: Alert and awake and oriented x3. No focal neurologic deficits. Moving all the extremities. PSYCHIATRIC: Mood and affect normal. LABORATORY DATA: Potassium 6.1, BUN is 47, and creatinine is 6.9. ASSESSMENT AND PLAN: 1. End-stage renal disease. We will continue on hemodialysis as tolerated. 2. Large pericardial effusion, status post pericardiocentesis. 3. Hyponatremia. 4. Hyperkalemia, not getting better, might have to check dialysis catheter. 5. Acidosis. 6. Chronic hypertension. 7. Skin rash. Continue to remove fluid dialysis as tolerated. We will continue on daily dialysis, but his potassium not getting better is concerning. We will recheck labs in the morning and might need catheter exchange. Appreciate help for PD catheter placement. Job ID: [id number]
--- NOTE | 2019-12-30 18:58 | PDOC.HOSPP ---
- Subjective Encounter Date: 12/30/19 Subjective: Feels ok. No specific complaints. He and his say this BP is normal for him. Always 80's to 90's systolic. - Objective Vital Signs & Weight: Vital Signs (12 hours) Temp Pulse Resp BP Pulse Ox 12/30/19 15:19 97.6 F 82 14 85/50 L 97 12/30/19 13:30 97.5 F L 82 10 L 79/51 L 96 12/30/19 08:03 97.4 F L 88 13 88/65 L 98 Weight Admit Weight 228 lb 1.6 oz Weight 228 lb 1.6 oz I&O: 12/29/19 12/30/19 12/31/19 06:59 06:59 06:59 Intake Total 610 240 Output Total 1100 Balance -490 240 Result Diagrams: 12/28/19 06:05 12/30/19 08:30 Additional Labs: Accuchecks 12/30/19 12/30/19 12/30/19 16:53 13:44 04:44 POC Glucose 132 H 109 130 H 12/29/19 20:50 POC Glucose 98 Hospitalist ROS - Medication Medications: Active Medications Generic Name Dose Route Start Last Admin Trade Name Freq PRN Reason Stop Dose Admin Hydrocodone Bitart/Acetaminophen 1 tab 12/23/19 22:24 12/29/19 04:49 [place] 5/325 PO 1 tab Q12H PRN Administration Moderate Pain (4-6) Aspirin 81 mg 12/24/19 09:00 12/30/19 08:07 Ecotrin PO 81 mg DAILY REYNALDO Administration Atorvastatin Calcium 20 mg 12/23/19 21:00 12/29/19 22:32 Lipitor PO 20 mg HS REYNALDO Administration Dextrose/Water 25 gm 12/23/19 13:39 12/29/19 05:26 Dextrose 50% SLOW IVP 25 gm PRN PRN Administration Hypoglycemia Gabapentin 300 mg 12/29/19 21:00 12/29/19 22:32 Neurontin PO 300 mg HS REYNALDO Administration Guaifenesin/Codeine Phosphate 5 ml 12/26/19 00:08 12/26/19 00:22 Robitussin Ac PO 5 ml Q4H PRN Administration Cough Heparin Sodium (Porcine) 5,000 units 12/28/19 21:00 12/30/19 09:52 Heparin SC Not Given BID [facility] Insulin Glargine 20 units/ 0.2 mls @ 0 mls/hr 12/24/19 09:00 12/30/19 08:32 Miscellaneous Medication SC Not Given QAM [facility] Ibuprofen 400 mg 12/29/19 16:03 12/30/19 15:23 Motrin PO 12/31/19 09:00 400 mg Q8H REYNALDO Administration Insulin Human Regular 0 units 12/23/19 13:39 12/27/19 06:23 Humulin R SC 8 unit .MODERATE SLIDING SC PRN Administration Moderate Correctional Scale Metoprolol Tartrate 12.5 mg 12/23/19 21:00 12/30/19 08:07 Lopressor PO 12.5 mg BID [facility] Administration Midodrine 10 mg 12/29/19 09:00 12/30/19 15:23 Proamatine PO 10 mg TID REYNALDO Administration Nitroglycerin 0.4 mg 12/23/19 13:40 12/28/19 13:29 Nitrostat SL 0.4 mg Q5MIN PRN Administration Chest Pain Phenyleph/Shark Oil/[place] Butter 1 supp 12/24/19 11:53 12/24/19 13:34 Preparation H DC 1 supp Q6H PRN Administration Hemorrhoids Tramadol HCl 50 mg 12/27/19 20:50 12/29/19 12:20 Ultram PO 50 mg Q4H PRN Administration Mild-Moderate Pain (1-5) - Exam General Appearance: NAD, awake alert Heart: RRR, no murmur, no gallops, no rubs, normal peripheral pulses Heart - other findings: Drain in place. Wound dressing. Respiratory: CTAB, no wheezes, no rales, no ronchi, normal chest expansion, no tachypnea, normal percussion Gastrointestinal: soft, non-tender, non-distended, normal bowel sounds, no palpable masses, no hepatomegaly, no splenomegaly, no bruit Extremities - other findings: Generalized 2+ edema Neurological: cranial nerve grossly intact, normal sensation to touch, no weakness, no focal deficits, no new deficit Musculoskeletal: normal tone, normal strength, no muscle wasting Psychiatric: normal affect, normal behavior, A&O x 3 Hosp A/P (1) Hypotension Status: Acute (2) Chest pain Code(s): R07.9 - CHEST PAIN, UNSPECIFIED Status: Acute (3) ESRD (end stage renal disease) on dialysis Code(s): N18.6 - END STAGE RENAL DISEASE; Z99.2 - DEPENDENCE ON RENAL DIALYSIS Status: Acute (4) Pericardial effusion Code(s): I31.3 - PERICARDIAL EFFUSION (NONINFLAMMATORY) Status: Acute (5) Volume overload Code(s): E87.70 - FLUID OVERLOAD, UNSPECIFIED Status: Acute - Plan Seems to be doing fine. No complaints. Continuing HD. Potassium still up in spite of HD, therefore getting daily HD. indicates plan is to transition to PD catheter soon. Has an AV shunt in [facility] that is fresh. Will defer plan to Dr. Chapa. Appears to need more volume removed as possible. Still has the pericardial drain. Patient indicates that Dr. Fay said he could DC with that, but he will check on him tomorrow. Pending the plan for HD, may be able DC with continued OP tx.
[2019-12-30] MEDS: Ondansetron PF 4 MG/2 ML Vial SLOW IVP PRN (20:04)
[2019-12-30] MEDS: Gabapentin 300 MG CAP PO SCH (20:07)
[2019-12-30] MEDS: Atorvastatin Calcium 20 MG TAB PO SCH (20:07)
[2019-12-30] MEDS ORDERED: Sodium Chloride 0.9% 500 ML IV SCH ×2 (22:15→23:00)
--- NOTE | 2019-12-30 22:57 | PDOC.EVN ---
Event Note - Event Note Event Note: RN called - BP low - Will try Albumin/IVF bolus
[2019-12-30] MEDS ORDERED: Albumin 25% 25 GM/100 ML BOT IVPB SCH (23:00)
[2019-12-31] MEDS: Ibuprofen 200 MG TAB PO SCH ×2 (00:45→13:52)
[2019-12-31 05:55] LABS: Anion Gap 23 mmol/L (10-20); BUN (Urea Nitrogen) 40 mg/dL (8.4-25.7); Calc. Creatinine Clearance 23 mL/min (70-130); Calcium 8.4 mg/dL (7.8-10.44); Carbon Dioxide 18 mmol/L (22-29); Chloride 97 mmol/L (98-107); Estimated GFR-MDRD 11; Glucose 152 mg/dL (70-105); Potassium 5.8 mmol/L (3.5-5.1); Sodium 132 mmol/L (136-145)
--- NOTE | 2019-12-31 08:11 | PDOC.CPN ---
- Subjective Date: 12/31/19 Time: 08:30 Interval history: Patient awake, lying in bed, spouse at bedside. Intermittent low BPs overnight- s/p Albumin, now NS bolus in process. Systolic 86 currently. Denies shortness of breath or chest pain. Only real concern is increase in swelling overnight and intermittent nausea, dry heaves, particularly after dialysis. No overnight events on telemetry. - Review of Systems General: denies: fever/chills, weight/appetite/sleep changes, night sweats, fatigue Respiratory: denies: cough, congestion, shortness of breath, exercise intolerance Cardiovascular: reports: edema. denies: chest pain, palpitation, paroxysmal nocturnal dyspnea, orthopnea Gastrointestinal: reports: nausea Musculoskeletal: reports: pain, swelling - Objective Allergies/Adverse Reactions: Allergies Allergy/AdvReac Type Severity Reaction Status Date / Time No Known Allergies Allergy Verified 12/23/19 14:30 Visit Medications: Current Medications Acetaminophen (Tylenol) 1,000 mg PO Q6H PRN PRN Reason: Moderate to Severe Pain (6-10) Hydrocodone Bitart/Acetaminophen ([place] 5/325) 1 tab PO Q12H PRN PRN Reason: Moderate Pain (4-6) Last Admin: 12/29/19 04:49 Dose: 1 tab Aspirin (Ecotrin) 81 mg PO DAILY [facility] Last Admin: 12/30/19 08:07 Dose: 81 mg Atorvastatin Calcium (Lipitor) 20 mg PO HS [facility] Last Admin: 12/30/19 20:07 Dose: 20 mg Dextrose/Water (Dextrose 50%) 25 gm SLOW IVP PRN PRN PRN Reason: Hypoglycemia Last Admin: 12/29/19 05:26 Dose: 25 gm Fentanyl (Sublimaze) 25 mcg SLOW IVP Q2H PRN PRN Reason: Severe Pain (7-10) Gabapentin (Neurontin) 300 mg PO HS [facility] Last Admin: 12/30/19 20:07 Dose: 300 mg Glucagon (Glucagon) 1 mg IM PRN PRN PRN Reason: Hypoglycemia Guaifenesin/Codeine Phosphate (Robitussin Ac) 5 ml PO Q4H PRN PRN Reason: Cough Last Admin: 12/26/19 00:22 Dose: 5 ml Heparin Sodium (Porcine) (Heparin) 5,000 units SC BID [facility] Last Admin: 12/30/19 09:52 Dose: Not Given Insulin Glargine 20 units/ (Miscellaneous Medication) 0.2 mls @ 0 mls/hr SC QAM [facility] Last Admin: 12/30/19 08:32 Dose: Not Given Dextrose/Water (D5w) 1,000 mls @ 0 mls/hr IV .Q0M PRN PRN Reason: Hypoglycemia Sodium Chloride (Normal Saline 0.9%) 500 mls @ 50 mls/hr IV .Q10H [facility] Stop: 12/31/19 08:59 Last Admin: 12/30/19 23:17 Dose: 500 mls Ibuprofen (Motrin) 400 mg PO Q8H [facility] Stop: 12/31/19 09:00 Last Admin: 12/31/19 00:45 Dose: Not Given Insulin Human Regular (Humulin R) 0 units SC .MODERATE SLIDING SC PRN PRN Reason: Moderate Correctional Scale Last Admin: 12/27/19 06:23 Dose: 8 unit Midodrine (Proamatine) 10 mg PO TID [facility] Last Admin: 12/30/19 20:07 Dose: 10 mg Nitroglycerin (Nitrostat) 0.4 mg SL Q5MIN PRN PRN Reason: Chest Pain Last Admin: 12/28/19 13:29 Dose: 0.4 mg Ondansetron HCl (Zofran) 4 mg SLOW IVP Q4H PRN PRN Reason: Nausea/Vomiting Last Admin: 12/30/19 20:04 Dose: 4 mg Phenyleph/Shark Oil/[place] Butter (Preparation H) 1 supp [place] Q6H PRN PRN Reason: Hemorrhoids Last Admin: 12/24/19 13:34 Dose: 1 supp Sodium Chloride (Flush - Normal Saline) 10 ml IVF Q12HR REYNALDO Sodium Chloride (Flush - Normal Saline) 10 ml IVF PRN PRN PRN Reason: Saline Flush Tramadol HCl (Ultram) 50 mg PO Q4H PRN PRN Reason: Mild-Moderate Pain (1-5) Last Admin: 12/29/19 12:20 Dose: 50 mg Vital Signs & Weight: Vital Signs Temp Pulse Resp BP BP BP BP 12/31/19 04:00 97.8 F 74 18 78/51 L 12/31/19 00:45 72 18 80/50 L 12/30/19 23:35 98.7 F 77 18 76/50 L 12/30/19 23:17 71 16 71/51 L 12/30/19 22:43 73 18 61/41 L 12/30/19 22:22 74 18 61/41 L 12/30/19 22:16 74 62/35 L 12/30/19 22:00 98 F 72 19 69/36 L Pulse Ox 12/31/19 04:00 93 L 12/31/19 00:45 95 12/30/19 23:35 95 12/30/19 23:17 93 L 12/30/19 22:43 93 L 12/30/19 22:22 90 L 12/30/19 22:16 12/30/19 22:00 91 L Admit Weight 228 lb 1.6 oz Weight 229 lb 1.6 oz - Quality Measures CV meds: Beta Dennis: Yes, Statin: Yes - Labs Result Diagrams: 12/28/19 06:05 12/31/19 05:23 Troponin/CKMB CK-MB (CK-2) 2.0 ng/mL (0-6.6) 12/29/19 03:36 Troponin I 0.096 ng/mL (< 0.028) H 12/29/19 06:27 - Assessment/Plan Assessment/Plan: 1. Chest pain, atypical-improved s/p window 2. ESRD 3. Hypotension 4. Pericardial effusion, large-s/p pericardial window 12/29, serosanguinous drainage. 5. Hyperkalemia-improved, now 5.8 (6.1 yesterday) PLAN: -Stop metoprolol. On midodrine, receiving NS bolus. Asymptomatic with hypotension, normal systolics 80s-90s per patient & spouse. -Continue plan to dialyze as BP allows, volume overloaded -Stress test was normal. No plan for LHC at this time.
[2019-12-31] MEDS: Ondansetron PF 4 MG/2 ML Vial SLOW IVP PRN (09:18)
[2019-12-31] MEDS: Midodrine HCl 5 MG TAB PO SCH ×3 (12:34→21:00)
[2019-12-31] MEDS: Insulin Glargine 20 UNITS in Pre-Filled Syringe 1 EACH SC SCH (12:35)
[2019-12-31] MEDS: Aspirin 81 mg Enteric Coated Tablet PO SCH (13:36)
[2019-12-31] MEDS: Heparin 5,000 UNITS/ML VIAL SC SCH ×2 (13:52→21:00)
--- NOTE | 2019-12-31 13:55 | PRG ---
DATE OF SERVICE: 12/31/2019 SUBJECTIVE: Patient was seen and examined at bedside and overnight events noted. Patient denies any shortness of breath or chest pain or palpitation. No history of nausea or vomiting or diarrhea or fever or chills or cramps. OBJECTIVE: GENERAL: This is a well-built male, in no apparent distress. VITAL SIGNS: Temperature 97.3. Heart rate 75. Respiratory rate 16. Blood pressure 86/55. HEENT: Atraumatic, normocephalic. Oral mucosa is moist NECK: Supple. CARDIOVASCULAR: S1, S2 heard. Rate and rhythm regular. RESPIRATORY: Clear to auscultation. GASTROINTESTINAL: Abdomen is soft. MUSCULOSKELETAL: No tenderness. No edema. DERMATOLOGIC: No skin rash. NEUROLOGIC: Alert and awake and oriented X3. No focal neurologic deficits. Moving all the extremities. PSYCHIATRIC: Mood and affect normal. LABORATORY DATA: Potassium is 5.8, BUN is 40, and creatinine is 5.4. ASSESSMENT AND PLAN: 1. End-stage renal disease. Continue on hemodialysis. 2. Edema. 3. Large pericardial effusion, status post pericardial window. 4. Hyponatremia. 5. Hyperkalemia, not getting better. Plan is to have dialysis today with 1K bath, and if the potassium is not better after dialysis, might need start on PD tomorrow. 6. Acidosis. 7. Chronic hypotension. 8. Skin rash, better. It seems like his dialysis access is having issues, might have to have if not working. Continue to limit potassium intake. We will start [facility]. We will follow. Job ID: [id number]
[2019-12-31] MEDS ORDERED: Albumin 25% 25 GM/100 ML BOT IVPB SCH (14:00)
[2019-12-31] MEDS ORDERED: LOKELMA 5 GM PACKET PO SCH (15:00)
[2019-12-31 17:42] LABS: Potassium 4.6 mmol/L (3.5-5.1)
[2019-12-31] MEDS: Gabapentin 300 MG CAP PO SCH (20:59)
[2019-12-31] MEDS: HYDROcodone/Acetaminophen 5/325 mg Tablet PO PRN (20:59)
[2019-12-31] MEDS: Atorvastatin Calcium 20 MG TAB PO SCH (21:00)
--- NOTE | 2019-12-31 22:23 | PDOC.HOSPP ---
- Subjective Encounter Date: 12/31/19 Subjective: Tired today. request he be allowed to sleep. Tolerated HD well. Could not pull volume due to BP. - Objective Vital Signs & Weight: Vital Signs (12 hours) Temp Pulse Resp BP BP Pulse Ox 12/31/19 20:00 89/55 L 75 L 12/31/19 18:01 84/59 L 12/31/19 16:17 97.8 F 74 14 81/55 L 93 L 12/31/19 13:32 81/51 L 12/31/19 13:11 97.5 F L 81 14 69/42 L 93 L Weight Admit Weight 228 lb 1.6 oz Weight 229 lb 1.6 oz I&O: 12/30/19 12/31/19 01/01/20 06:59 06:59 06:59 Intake Total 2180 1170 Output Total 3030 75 Balance -850 1095 Result Diagrams: 12/28/19 06:05 12/31/19 17:15 Additional Labs: Accuchecks 12/31/19 12/31/19 12/31/19 20:32 17:22 12:49 POC Glucose 122 H 140 H 106 12/31/19 06:11 POC Glucose 148 H Hospitalist ROS - Medication Medications: Active Medications Generic Name Dose Route Start Last Admin Trade Name Freq PRN Reason Stop Dose Admin Hydrocodone Bitart/Acetaminophen 1 tab 12/23/19 22:24 12/31/19 20:59 [place] 5/325 PO 1 tab Q12H PRN Administration Moderate Pain (4-6) Aspirin 81 mg 12/24/19 09:00 12/31/19 13:36 Ecotrin PO 81 mg DAILY REYNALDO Administration Atorvastatin Calcium 20 mg 12/23/19 21:00 12/31/19 21:00 Lipitor PO Not Given HS REYNALDO Dextrose/Water 25 gm 12/23/19 13:39 12/29/19 05:26 Dextrose 50% SLOW IVP 25 gm PRN PRN Administration Hypoglycemia Gabapentin 300 mg 12/29/19 21:00 12/31/19 20:59 Neurontin PO 300 mg HS REYNALDO Administration Guaifenesin/Codeine Phosphate 5 ml 12/26/19 00:08 12/26/19 00:22 Robitussin Ac PO 5 ml Q4H PRN Administration Cough Heparin Sodium (Porcine) 5,000 units 12/28/19 21:00 12/31/19 21:00 Heparin SC Not Given BID [facility] Insulin Glargine 20 units/ 0.2 mls @ 0 mls/hr 12/24/19 09:00 12/31/19 12:35 Miscellaneous Medication SC Not Given QAM [facility] Insulin Human Regular 0 units 12/23/19 13:39 12/27/19 06:23 Humulin R SC 8 unit .MODERATE SLIDING SC PRN Administration Moderate Correctional Scale Midodrine 10 mg 12/29/19 09:00 12/31/19 21:00 Proamatine PO 10 mg TID [facility] Administration Nitroglycerin 0.4 mg 12/23/19 13:40 12/28/19 13:29 Nitrostat SL 0.4 mg Q5MIN PRN Administration Chest Pain Ondansetron HCl 4 mg 12/30/19 19:45 12/31/19 09:18 Zofran SLOW IVP 4 mg Q4H PRN Administration Nausea/Vomiting Phenyleph/Shark Oil/[place] Butter 1 supp 12/24/19 11:53 12/24/19 13:34 Preparation H [place] 1 supp Q6H PRN Administration Hemorrhoids Sodium Chloride 10 ml 12/31/19 09:00 12/31/19 21:01 Flush - Normal Saline IVF 10 ml Q12HR [facility] Administration Tramadol HCl 50 mg 12/27/19 20:50 12/29/19 12:20 Ultram PO 50 mg Q4H PRN Administration Mild-Moderate Pain (1-5) - Exam General Appearance: NAD General - other findings: Sleeping but awakens. Heart: RRR, no murmur, no gallops, no rubs, normal peripheral pulses Respiratory: CTAB, no wheezes, no rales, no ronchi, normal chest expansion, no tachypnea, normal percussion Gastrointestinal: soft, non-tender, non-distended, normal bowel sounds, no palpable masses, no hepatomegaly, no splenomegaly, no bruit Gastrointestinal - other findings: PD cath Extremities: 2+ LE edema Extremities - other findings: Generalized edema of extremities Musculoskeletal: no muscle wasting, generalized weakness Psychiatric: somnolent Hosp A/P (1) Hypotension Status: Acute (2) Chest pain Code(s): R07.9 - CHEST PAIN, UNSPECIFIED Status: Acute (3) ESRD (end stage renal disease) on dialysis Code(s): N18.6 - END STAGE RENAL DISEASE; Z99.2 - DEPENDENCE ON RENAL DIALYSIS Status: Acute (4) Pericardial effusion Code(s): I31.3 - PERICARDIAL EFFUSION (NONINFLAMMATORY) Status: Acute (5) Volume overload Code(s): E87.70 - FLUID OVERLOAD, UNSPECIFIED Status: Acute (6) Hyperkalemia Code(s): E87.5 - HYPERKALEMIA Status: Acute - Plan Continuing HD. Potassium still up in spite of HD, therefore getting daily HD. Discussed with Dr. Chapa. Concern that he HD catheter may not be functioning properly. Adding Albumin to help with BP and volume issues. On midodrine already. Baseline BP is low. Dr. Chapa does not believe further intervention indicated for BP. He does seem to be tolerating this well. May need to initiate PD sooner than anticipated. Has an AV shunt in [facility] that is fresh. Still has the pericardial drain. BP did not improve after the pericardial drainage/window. Later in the day, patient's reported he had some twitching in his left arm. Ca levels ok. K+ much improved. Will check phos in am. Long discussion with the patient's explaining the situation and treatment plan.
[2020-01-01 05:35] LABS: Phosphorus 6.2 mg/dL (2.3-4.7)
[2020-01-01 05:36] LABS: Anion Gap 20 mmol/L (10-20); BUN (Urea Nitrogen) 38 mg/dL (8.4-25.7); Calc. Creatinine Clearance 25 mL/min (70-130); Calcium 8.5 mg/dL (7.8-10.44); Carbon Dioxide 21 mmol/L (22-29); Chloride 98 mmol/L (98-107); Estimated GFR-MDRD 12; Glucose 134 mg/dL (70-105); Potassium 4.9 mmol/L (3.5-5.1); Sodium 134 mmol/L (136-145)
--- NOTE | 2020-01-01 08:55 | EKG ---
Test Reason : Blood Pressure : / mmHG Vent. Rate : 085 BPM Atrial Rate : 085 BPM P-R Int : 166 ms QRS Dur : 078 ms QT Int : 354 ms P-R-T Axes : 036 067 179 degrees QTc Int : 421 ms Normal sinus rhythm Low voltage QRS Nonspecific T wave abnormality Abnormal ECG Confirmed by DEBORAH CORMIER ([id number]) on 01/01/2020 8:55:42 AM Referred By: CJ Confirmed By:DEBORAH CORMIER
[2020-01-01] MEDS: Midodrine HCl 5 MG TAB PO SCH ×3 (09:33→21:04)
[2020-01-01] MEDS: Aspirin 81 mg Enteric Coated Tablet PO SCH (09:34)
[2020-01-01] MEDS: Insulin Glargine 20 UNITS in Pre-Filled Syringe 1 EACH SC SCH (09:34)
[2020-01-01] MEDS: Heparin 5,000 UNITS/ML VIAL SC SCH ×2 (09:34→21:19)
[2020-01-01] MEDS ORDERED: traMADol HCl 50 MG TAB PO PRN (10:17)
--- NOTE | 2020-01-01 10:32 | OP ---
DATE OF PROCEDURE: 12/29/2019 PREOPERATIVE DIAGNOSES: 1. Pericardial effusion. 2. Early tamponade. POSTOPERATIVE DIAGNOSES: 1. Pericardial effusion. 2. Early tamponade. PROCEDURE PERFORMED: Pericardial window. ANESTHESIA: General. ESTIMATED BLOOD LOSS: Minimal. FINDINGS: The patient had 250 mL of bloody pericardial fluid. DESCRIPTION OF PROCEDURE: After adequate anesthesia had been obtained, the patient was prepped and draped. An incision was made over the xiphoid process. Fascia was divided in the midline and dissection carried down to the xiphoid process bluntly. Following this, the fat was removed from the anterior pericardial surface and the pericardium was entered, where an incision about 2 cm was made to allow easy drainage of about 200 mL of fluid, which was sent for culture and histology. A small piece of pericardium was excised. There was some exudate on the surface of the heart, but the pericardium otherwise appeared smooth. A #19 [place] drain was placed through a separate stab incision and secured to the skin. Fascia was reapproximated with [id number] Vicryl sutures. Subcutaneous tissue and skin were closed in layers. The patient was to be taken to the recovery room in guarded condition. Job ID: [id number]
--- NOTE | 2020-01-01 11:02 | PRG ---
DATE OF SERVICE: 01/01/2020 SUBJECTIVE: This is a 54-year-old gentleman, being seen for end-stage renal disease. The patient denies any nausea, vomiting, or chest pain. OBJECTIVE: CONSTITUTIONAL: On exam, the patient is awake and alert. VITAL SIGNS: Afebrile. Pulse 75, breathing 16, blood pressure 83/52. GENERAL APPEARANCE AND MENTAL STATUS: Fair. HEAD/NECK: Normocephalic. Atraumatic. EYES: EOMI. No deformity. EARS: Clear. No ulcers. NOSE: Intact. No lesions. MOUTH: Clear. No discharge. THROAT: Clear. No exudate. LUNGS: Clear. No crackles. CARDIAC: S1, S2. No rub. ABDOMEN: Benign. Bowel sounds positive. GENITALIA/RECTUM: Abraham absent. BACK/EXTREMITIES: Edema 0+. NEUROLOGICAL: Alert and motor intact. SKIN: LYMPHATICS: LABORATORY DATA: Reviewed. ASSESSMENT AND PLAN: 1. Stage 6 chronic kidney disease. No urgent indication for dialysis today. The patient remains hypotensive. This could be because of pericardial effusion or adrenal insufficiency. I would recommend getting a cortisol and aldosterone level and starting the patient on low-dose Florinef. 2. Anemia, stable. 3. Medication based on GFR, appropriate. 4. Hypotension. Recommend workup. 5. Overall prognosis poor. 6. Secondary hyperparathyroidism and hyperphosphatemia. Again, we would recommend binders as well as low phosphorus diet. Job ID: [id number]
[2020-01-01] MEDS: Sevelamer Carbonate 800 MG TAB PO SCH ×2 (11:36→17:28)
[2020-01-01] MEDS: Cepastat Lozenges 1 LOZ PO PRN ×2 (12:53→15:34)
--- NOTE | 2020-01-01 16:46 | PDOC.CPN ---
- Subjective Date: 01/01/20 Time: 16:44 - Review of Systems General: reports: weight/appetite/sleep changes, fatigue. denies: fever/chills , night sweats Respiratory: reports: shortness of breath. denies: cough, congestion, exercise intolerance Cardiovascular: reports: edema. denies: chest pain, palpitation, paroxysmal nocturnal dyspnea, orthopnea Gastrointestinal: denies: nausea, vomiting, diarrhea, constipation, abd pain, GI bleeding Musculoskeletal: denies: pain, tenderness, stiffness, swelling, arthritis/ arthralgias Neurological: denies: numbness, syncope, seizure, weakness - Objective Allergies/Adverse Reactions: Allergies Allergy/AdvReac Type Severity Reaction Status Date / Time No Known Allergies Allergy Verified 12/23/19 14:30 Visit Medications: Current Medications Acetaminophen (Tylenol) 1,000 mg PO Q6H PRN PRN Reason: Moderate to Severe Pain (6-10) Hydrocodone Bitart/Acetaminophen ([place] 5/325) 1 tab PO Q12H PRN PRN Reason: Moderate Pain (4-6) Last Admin: 12/31/19 20:59 Dose: 1 tab Aspirin (Ecotrin) 81 mg PO DAILY [facility] Last Admin: 01/01/20 09:34 Dose: 81 mg Atorvastatin Calcium (Lipitor) 20 mg PO HS [facility] Last Admin: 12/31/19 21:00 Dose: Not Given Dextrose/Water (Dextrose 50%) 25 gm SLOW IVP PRN PRN PRN Reason: Hypoglycemia Last Admin: 12/29/19 05:26 Dose: 25 gm Fentanyl (Sublimaze) 25 mcg SLOW IVP Q2H PRN PRN Reason: Severe Pain (7-10) Gabapentin (Neurontin) 300 mg PO HS [facility] Last Admin: 12/31/19 20:59 Dose: 300 mg Glucagon (Glucagon) 1 mg IM PRN PRN PRN Reason: Hypoglycemia Guaifenesin/Codeine Phosphate (Robitussin Ac) 5 ml PO Q4H PRN PRN Reason: Cough Last Admin: 12/26/19 00:22 Dose: 5 ml Heparin Sodium (Porcine) (Heparin) 5,000 units SC BID [facility] Last Admin: 01/01/20 09:34 Dose: 5,000 units Insulin Glargine 20 units/ (Miscellaneous Medication) 0.2 mls @ 0 mls/[facility] Last Admin: 01/01/20 09:34 Dose: 0.2 mls Dextrose/Water (D5w) 1,000 mls @ 0 mls/hr IV .Q0M PRN PRN Reason: Hypoglycemia Insulin Human Regular (Humulin R) 0 units SC .MODERATE SLIDING SC PRN PRN Reason: Moderate Correctional Scale Last Admin: 12/27/19 06:23 Dose: 8 unit Midodrine (Proamatine) 10 mg PO TID [facility] Last Admin: 01/01/20 15:30 Dose: 10 mg Nitroglycerin (Nitrostat) 0.4 mg SL Q5MIN PRN PRN Reason: Chest Pain Last Admin: 12/28/19 13:29 Dose: 0.4 mg Ondansetron HCl (Zofran) 4 mg SLOW IVP Q4H PRN PRN Reason: Nausea/Vomiting Last Admin: 12/31/19 09:18 Dose: 4 mg Phenyleph/Shark Oil/[place] Butter (Preparation H) 1 supp IN Q6H PRN PRN Reason: Hemorrhoids Last Admin: 12/24/19 13:34 Dose: 1 supp Sevelamer Carbonate (Renvela) 1,600 mg PO TID[facility] Last Admin: 01/01/20 11:36 Dose: 1,600 mg Sodium Chloride (Flush - Normal Saline) 10 ml IVF Q12HR [facility] Last Admin: 01/01/20 09:44 Dose: 10 ml Sodium Chloride (Flush - Normal Saline) 10 ml IVF PRN PRN PRN Reason: Saline Flush Throat Lozenges (Cepastat Lozenges) 1 laxmi PO Q2H PRN PRN Reason: Sore Throat Last Admin: 01/01/20 15:34 Dose: 1 laxmi Tramadol HCl (Ultram) 50 mg PO Q12H PRN PRN Reason: Mild-Moderate Pain (1-5) Vital Signs & Weight: Vital Signs Temp Pulse Resp BP Pulse Ox 01/01/20 15:32 97.8 F 74 16 90/65 97 01/01/20 11:27 97.7 F 78 16 85/63 L 96 01/01/20 07:40 97.5 F L 75 15 83/52 L 95 Admit Weight 228 lb 1.6 oz Weight 227 lb 6.4 oz - Quality Measures CV meds: Beta Dennis: Yes, Statin: Yes - Physical Exam General: alert & oriented x3 HEENT: mucus membranes moist Neck: supple neck Cardiac: regular rate and rhythm Lungs: clear to auscultation Neuro: grossly intact Abdomen: active bowel sounds Extremities: 2+ LE edema Skin: clear Musculoskeletal: no pain - Labs Result Diagrams: 12/28/19 06:05 01/01/20 05:10 Troponin/CKMB CK-MB (CK-2) 2.0 ng/mL (0-6.6) 12/29/19 03:36 Troponin I 0.096 ng/mL (< 0.028) H 12/29/19 06:27 - Telemetry Sinus rhythms and dysrhythmias: sinus rhythm - Assessment/Plan Assessment/Plan: 1. Chest pain, atypical, improved s/p window 2. ESRD 3. Hypotension 4. Pericardial effusion, large, s/p pericardial window 12/29, serosanguinous drainage. 5. Hyperkalemia, improved, on HD PLAN: - On midodrine. - BP did not change with evacuation of pericardial effusion. - HD as tolerated. - No plan for LHC at this time.
--- NOTE | 2020-01-01 20:26 | PDOC.HOSPP ---
- Subjective Encounter Date: 01/01/20 Subjective: Doing a little better overall. Reports weakness of the left foot. Can move it , but weak. - Objective Vital Signs & Weight: Vital Signs (12 hours) Temp Pulse Resp BP Pulse Ox 01/01/20 15:32 97.8 F 74 16 90/65 97 01/01/20 11:27 97.7 F 78 16 85/63 L 96 Weight Admit Weight 228 lb 1.6 oz Weight 227 lb 6.4 oz I&O: 12/31/19 01/01/20 01/02/20 06:59 06:59 06:59 Intake Total 2180 1290 Output Total 3030 85 50 Balance -850 1205 -50 Result Diagrams: 12/28/19 06:05 01/01/20 05:10 Additional Labs: Accuchecks 01/01/20 01/01/20 01/01/20 16:47 10:50 05:58 POC Glucose 128 H 143 H 125 H 12/31/19 20:32 POC Glucose 122 H Hospitalist ROS - Medication Medications: Active Medications Generic Name Dose Route Start Last Admin Trade Name Freq PRN Reason Stop Dose Admin Hydrocodone Bitart/Acetaminophen 1 tab 12/23/19 22:24 12/31/19 20:59 [place] 5/325 PO 1 tab Q12H PRN Administration Moderate Pain (4-6) Aspirin 81 mg 12/24/19 09:00 01/01/20 09:34 Ecotrin PO 81 mg DAILY REYNALDO Administration Atorvastatin Calcium 20 mg 12/23/19 21:00 12/31/19 21:00 Lipitor PO Not Given HS REYNALDO Dextrose/Water 25 gm 12/23/19 13:39 12/29/19 05:26 Dextrose 50% SLOW IVP 25 gm PRN PRN Administration Hypoglycemia Gabapentin 300 mg 12/29/19 21:00 12/31/19 20:59 Neurontin PO 300 mg HS REYNALDO Administration Guaifenesin/Codeine Phosphate 5 ml 12/26/19 00:08 12/26/19 00:22 Robitussin Ac PO 5 ml Q4H PRN Administration Cough Heparin Sodium (Porcine) 5,000 units 12/28/19 21:00 01/01/20 09:34 Heparin SC 5,000 units BID REYNALDO Administration Insulin Glargine 20 units/ 0.2 mls @ 0 mls/hr 12/24/19 09:00 01/01/20 09:34 Miscellaneous Medication SC 0.2 mls QAM REYNALDO Administration Insulin Human Regular 0 units 12/23/19 13:39 12/27/19 06:23 Humulin R SC 8 unit .MODERATE SLIDING SC PRN Administration Moderate Correctional Scale Midodrine 10 mg 12/29/19 09:00 01/01/20 15:30 Proamatine PO 10 mg TID REYNALDO Administration Nitroglycerin 0.4 mg 12/23/19 13:40 12/28/19 13:29 Nitrostat SL 0.4 mg Q5MIN PRN Administration Chest Pain Ondansetron HCl 4 mg 12/30/19 19:45 12/31/19 09:18 Zofran SLOW IVP 4 mg Q4H PRN Administration Nausea/Vomiting Phenyleph/Shark Oil/[place] Butter 1 supp 12/24/19 11:53 12/24/19 13:34 Preparation H [place] 1 supp Q6H PRN Administration Hemorrhoids Sevelamer Carbonate 1,600 mg 01/01/20 12:00 01/01/20 17:28 Renvela PO 1,600 mg TID-WM REYNALDO Administration Sodium Chloride 10 ml 12/31/19 09:00 01/01/20 09:44 Flush - Normal Saline IVF 10 ml Q12HR REYNALDO Administration Throat Lozenges 1 laxmi 01/01/20 11:53 01/01/20 15:34 Cepastat Lozenges PO 1 laxmi Q2H PRN Administration Sore Throat - Exam General Appearance: NAD, awake alert General - other findings: Obese Heart: RRR, no murmur, no gallops, no rubs, normal peripheral pulses Respiratory: CTAB, no wheezes, no rales, no ronchi, normal chest expansion, no tachypnea, normal percussion Respiratory - other findings: Pericardial drain. Gastrointestinal: soft, non-tender, non-distended, normal bowel sounds Gastrointestinal - other findings: PD catheter, health appearing post-lap incisions. Extremities: no cyanosis, no clubbing, 2+ LE edema Skin: normal turgor Musculoskeletal: generalized weakness Musculoskeletal - other findings: Left foot a little weak. Has flexion and extension. Psychiatric: normal affect, normal behavior, A&O x 3, oriented to person, oriented to place, oriented to time Hosp A/P (1) Hypotension Status: Acute (2) Chest pain Code(s): R07.9 - CHEST PAIN, UNSPECIFIED Status: Acute (3) ESRD (end stage renal disease) on dialysis Code(s): N18.6 - END STAGE RENAL DISEASE; Z99.2 - DEPENDENCE ON RENAL DIALYSIS Status: Acute (4) Pericardial effusion Code(s): I31.3 - PERICARDIAL EFFUSION (NONINFLAMMATORY) Status: Acute (5) Volume overload Code(s): E87.70 - FLUID OVERLOAD, UNSPECIFIED Status: Acute (6) Hyperkalemia Code(s): E87.5 - HYPERKALEMIA Status: Acute - Plan Continuing HD. Held today. Potassium improved. Discussed with Dr. Aguayo Concern that he HD catheter may not be functioning properly. Adding Albumin to help with BP and volume issues. On midodrine already. Baseline BP is low. Dr. Collado initiated further eval with aldosterone levels. Still has the pericardial drain. BP did not improve after the pericardial drainage/window. Will consult PT for weakness.
[2020-01-01] MEDS: Atorvastatin Calcium 20 MG TAB PO SCH (21:04)
[2020-01-01] MEDS: Gabapentin 300 MG CAP PO SCH (21:05)
[2020-01-01] MEDS: HYDROcodone/Acetaminophen 5/325 mg Tablet PO PRN (21:05)
[2020-01-02] MEDS: Cepastat Lozenges 1 LOZ PO PRN (04:00)
[2020-01-02 05:21] LABS: Anion Gap 17 mmol/L (10-20); BUN (Urea Nitrogen) 50 mg/dL (8.4-25.7); Calc. Creatinine Clearance 22 mL/min (70-130); Calcium 8.2 mg/dL (7.8-10.44); Carbon Dioxide 24 mmol/L (22-29); Chloride 96 mmol/L (98-107); Estimated GFR-MDRD 10; Glucose 92 mg/dL (70-105); Potassium 5.2 mmol/L (3.5-5.1); Sodium 132 mmol/L (136-145)
[2020-01-02] MEDS: Heparin 5,000 UNITS/ML VIAL SC SCH ×2 (08:49→21:03)
[2020-01-02] MEDS: Insulin Glargine 20 UNITS in Pre-Filled Syringe 1 EACH SC SCH (08:49)
[2020-01-02] MEDS: Aspirin 81 mg Enteric Coated Tablet PO SCH (08:49)
[2020-01-02] MEDS: Sevelamer Carbonate 800 MG TAB PO SCH ×3 (08:49→17:55)
[2020-01-02] MEDS: Midodrine HCl 5 MG TAB PO SCH ×3 (08:50→21:03)
[2020-01-02] MEDS ORDERED: Chloraseptic Spray 180 ml Bottle PO PRN (09:07)
[2020-01-02 10:22] LABS: #Eosinphils 0.1 thou/uL (0.0-0.7); #Lymphocytes 1.3 thou/uL (1.20-3.40); #Monocytes 0.7 thou/uL (0.11-0.59); #Neutrophils 5.1 thou/uL (1.40-6.50); %Basophils 0.3 % (0.0-1.0); %Eosinophils 0.8 % (0.0-10.0); %Lymphocytes 17.7 % (21.0-51.0); %Monocytes 9.8 % (0.0-10.0); %Neutrophils 71.4 % (42.0-75.0); Hemoglobin 12.9 g/dL (14.0-18.0); Mean Corpuscular HGB CONC 31.4 g/dL (32.0-36.0); Mean Corpuscular Hemoglobin 31.4 pg (27.0-31.0); Mean Corpuscular Volume 99.8 fL (78.0-98.0); Mean Platelet Volume 10.3 fL (7.4-10.4); Platelet Count 107 thou/uL (130-400); RBC Distribution Width 20.3 % (11.5-14.5); Red Blood Cell (RBC) Count 4.11 mill/uL (4.70-6.10); White Blood Cell (WBC) Count 7.1 thou/uL (4.8-10.8)
[2020-01-02] MEDS ORDERED: Fludrocortisone Acetate 0.1 MG TAB PO SCH (12:00)
--- NOTE | 2020-01-02 12:28 | PRG ---
DATE OF SERVICE: 01/02/2020 SUBJECTIVE: This 54-year-old gentleman is being seen for end-stage kidney disease. The patient denied nausea, vomiting or chest pain. OBJECTIVE: See above. CONSTITUTIONAL: The patient is awake and alert. VITAL SIGNS: Afebrile, pulse 75, breathing 16, blood pressure was 83/54. GENERAL APPEARANCE AND MENTAL STATUS: Fair. HEAD/NECK: Normocephalic. Atraumatic. EYES: EOMI. No deformity. EARS: Clear. No ulcers. NOSE: Intact. No lesions. MOUTH: Clear. No discharge. THROAT: Clear. No exudate. LUNGS: Clear. No crackles. CARDIAC: S1, S2. No rub. ABDOMEN: Benign. Bowel sounds positive. GENITALIA/RECTUM: Abraham absent. BACK/EXTREMITIES: Edema 0+. NEUROLOGICAL: Alert and motor intact. SKIN: LYMPHATICS: LABORATORY DATA: Reviewed. ASSESSMENT: 1. Stage 6 chronic kidney disease urgent peritoneal dialysis . This was explained to the patient yesterday. 2. Hypotension. We will start the patient on Florinef. Side effects were discussed. Aldosterone levels were pending. 3. Anemia, stable. Medication based on GFR appropriate. Overall prognosis remains poor. Job ID: [id number]
[2020-01-02] MEDS ORDERED: Calcitriol 0.25 MCG CAP PO SCH ×2 (13:15→17:00)
--- NOTE | 2020-01-02 18:11 | PDOC.CPN ---
- Subjective Date: 01/02/20 Time: 18:10 Interval history: No new issues. He is undergoing peritoneal dialysis at this time and tolerating it well. Pericardial tube continues to drain serosanguinous fluid. - Review of Systems General: denies: fever/chills, weight/appetite/sleep changes, night sweats, fatigue Respiratory: denies: cough, congestion, shortness of breath, exercise intolerance Cardiovascular: denies: chest pain, palpitation, edema, paroxysmal nocturnal dyspnea, orthopnea Gastrointestinal: denies: nausea, vomiting, diarrhea, constipation, abd pain, GI bleeding Musculoskeletal: denies: pain, tenderness, stiffness, swelling, arthritis/ arthralgias Neurological: denies: numbness, syncope, seizure, weakness - Objective Allergies/Adverse Reactions: Allergies Allergy/AdvReac Type Severity Reaction Status Date / Time No Known Allergies Allergy Verified 12/23/19 14:30 Visit Medications: Current Medications Acetaminophen (Tylenol) 1,000 mg PO Q6H PRN PRN Reason: Moderate to Severe Pain (6-10) Hydrocodone Bitart/Acetaminophen ([place] 5/325) 1 tab PO Q12H PRN PRN Reason: Moderate Pain (4-6) Last Admin: 01/01/20 21:05 Dose: 1 tab Aspirin (Ecotrin) 81 mg PO DAILY [facility] Last Admin: 01/02/20 08:49 Dose: 81 mg Atorvastatin Calcium (Lipitor) 20 mg PO HS [facility] Last Admin: 01/01/20 21:04 Dose: 20 mg Calcitriol (Rocaltrol) 0.25 mcg PO Q2D [facility] Calcitriol (Rocaltrol) 0.25 mcg PO 1700 [facility] Stop: 01/02/20 19:00 Last Admin: 01/02/20 17:55 Dose: 0.25 mcg Dextrose/Water (Dextrose 50%) 25 gm SLOW IVP PRN PRN PRN Reason: Hypoglycemia Last Admin: 12/29/19 05:26 Dose: 25 gm Fentanyl (Sublimaze) 25 mcg SLOW IVP Q2H PRN PRN Reason: Severe Pain (7-10) Fludrocortisone Acetate (Florinef) 0.1 mg PO DAILY [facility] Gabapentin (Neurontin) 300 mg PO HS [facility] Last Admin: 01/01/20 21:05 Dose: 300 mg Glucagon (Glucagon) 1 mg IM PRN PRN PRN Reason: Hypoglycemia Guaifenesin/Codeine Phosphate (Robitussin Ac) 5 ml PO Q4H PRN PRN Reason: Cough Last Admin: 12/26/19 00:22 Dose: 5 ml Heparin Sodium (Porcine) (Heparin) 5,000 units SC BID [facility] Last Admin: 01/02/20 08:49 Dose: 5,000 units Insulin Glargine 20 units/ (Miscellaneous Medication) 0.2 mls @ 0 mls/hr SC QAM [facility] Last Admin: 01/02/20 08:49 Dose: 0.2 mls Dextrose/Water (D5w) 1,000 mls @ 0 mls/hr IV .Q0M PRN PRN Reason: Hypoglycemia Insulin Human Regular (Humulin R) 0 units SC .MODERATE SLIDING SC PRN PRN Reason: Moderate Correctional Scale Last Admin: 12/27/19 06:23 Dose: 8 unit Midodrine (Proamatine) 10 mg PO TID [facility] Last Admin: 01/02/20 16:29 Dose: 10 mg Nitroglycerin (Nitrostat) 0.4 mg SL Q5MIN PRN PRN Reason: Chest Pain Last Admin: 12/28/19 13:29 Dose: 0.4 mg Ondansetron HCl (Zofran) 4 mg SLOW IVP Q4H PRN PRN Reason: Nausea/Vomiting Last Admin: 12/31/19 09:18 Dose: 4 mg Phenol (Chloraseptic [place] 180 Ml Bot) 0 ml PO Q1H PRN PRN Reason: SORE THROAT Last Admin: 01/02/20 09:44 Dose: 2 spr Phenyleph/Shark Oil/[place] Butter (Preparation H) 1 supp [place] Q6H PRN PRN Reason: Hemorrhoids Last Admin: 12/24/19 13:34 Dose: 1 supp Sevelamer Carbonate (Renvela) 1,600 mg PO TID-[facility] Last Admin: 01/02/20 17:55 Dose: 1,600 mg Sodium Chloride (Flush - Normal Saline) 10 ml IVF Q12HR [facility] Last Admin: 01/02/20 08:50 Dose: 10 ml Sodium Chloride (Flush - Normal Saline) 10 ml IVF PRN PRN PRN Reason: Saline Flush Throat Lozenges (Cepastat Lozenges) 1 laxmi PO Q2H PRN PRN Reason: Sore Throat Last Admin: 01/02/20 04:00 Dose: 1 laxmi Tramadol HCl (Ultram) 50 mg PO Q12H PRN PRN Reason: Mild-Moderate Pain (1-5) Vital Signs & Weight: Vital Signs Temp Pulse Pulse Pulse Pulse Resp BP 01/02/20 16:27 97.3 F L 72 14 01/02/20 11:20 97.7 F 79 14 01/02/20 10:31 76 72 73 79/54 L 01/02/20 07:40 97.4 F L 75 12 BP BP BP Pulse Ox Pulse Ox Pulse Ox 01/02/20 16:27 91/54 L 93 L 01/02/20 11:20 80/58 L 95 01/02/20 10:31 77/56 L 72/51 L 94 L 98 01/02/20 07:40 83/54 L 95 Admit Weight 228 lb 1.6 oz Weight 232 lb 3.2 oz - Quality Measures CV meds: Beta Dennis: Yes, Statin: Yes - Physical Exam General: alert & oriented x3 HEENT: mucus membranes moist Neck: supple neck Cardiac: regular rate and rhythm Lungs: clear to auscultation Neuro: grossly intact Abdomen: unremarkable Extremities: 1+ LE edema Skin: clear Musculoskeletal: no pain - Labs Result Diagrams: 01/02/20 10:15 01/02/20 04:50 Troponin/CKMB CK-MB (CK-2) 2.0 ng/mL (0-6.6) 12/29/19 03:36 Troponin I 0.096 ng/mL (< 0.028) H 12/29/19 06:27 - Telemetry Sinus rhythms and dysrhythmias: sinus rhythm - Assessment/Plan Assessment/Plan: 1. Chest pain, atypical, improved s/p window 2. ESRD 3. Hypotension 4. Pericardial effusion, large, s/p pericardial window 12/29, serosanguinous drainage continues. 5. Hyperkalemia, improved, on HD PLAN: - On midodrine. - BP did not change with evacuation of pericardial effusion. - On PD now. - May need florinef.
[2020-01-02] MEDS ORDERED: Polyethylene Glycol 3350 17 GM Packet PO PRN (18:23)
[2020-01-02] MEDS ORDERED: Senokot 8.6 MG TAB PO SCH (18:30)
--- NOTE | 2020-01-02 20:09 | PRG ---
DATE OF SERVICE: 01/02/2020 SUBJECTIVE: The patient is reporting worsening sore throat pain today. He had some lozenges and today, some spray added. Otherwise, says he generally has no other specific complaints, being little bit lethargic, but so far tolerating peritoneal dialysis okay. PHYSICAL EXAMINATION: VITAL SIGNS: Temperature is 97.5; pulse 72 to 112; respirations 14 to 20; O2 saturations 93% to 95%; BP from 72/51, now up to 132/68. GENERAL APPEARANCE: The patient is a bit somnolent, but awakens, conversant, and cooperative. He is generally obese. He is lying supine in bed with peritoneal dialysis going presently. HEENT: PERRL. He has ulcerated lesions over the throat and tongue that look like they are aphthous type ulcers. NECK: Supple and symmetric. HEART: Regular without murmurs. LUNGS: Clear bilaterally with no wheezes or rales. ABDOMEN: Soft, nontender. There is a post-laparoscopic surgical wounds that appear healthy. There is a bandaging from the pericardial window and the peritoneal dialysis catheter is in place and appears to be functioning presently, otherwise the abdomen is soft and nontender. EXTREMITIES: Notable for 1 to 2+ pitting edema. There is large areas of erythema and the patch is slightly more anteriorly on the left posterior calf area, somewhere on the right, but just slightly less so. PSYCHIATRIC: The patient is little bit somnolent. LABORATORY DATA: White count 7.1, hemoglobin 12.9, and platelets 107. Sodium 132, potassium 5.2, chloride 96, CO2 is 24, BUN 50, creatinine 5.84, glucose 92, calcium 8.2. PTH is 5.16. IMPRESSION AND PLAN: 1. Hypotension, appears to be improving today. He is on midodrine, had Florinef added, and converted over to peritoneal dialysis. 2. Chest pain, resolved after pericardial window. 3. End-stage renal disease, converted to peritoneal dialysis today, appears to be tolerating well, followed by Nephrology. 4. Pericardial effusion, status post pericardial window with a drain in place. 5. Volume overload. The patient's hypotension has prevented us from being able to aggressively remove any fluid. Nephrology again working on that. 6. Hyperkalemia secondary to the renal disease, it has been a bit of an up-and-down pattern. 7. Hyperparathyroidism and renal disease. The patient has been started on Renvela and calcitriol. 8. Aphthous lesions of the tongue and throat. Continue with topical treatments. 9. Calciphylaxis of the lower extremities, working to optimize his PTH and dialysis regimen. Job ID: [id number]
[2020-01-02] MEDS: Gabapentin 300 MG CAP PO SCH (21:03)
[2020-01-02] MEDS: Atorvastatin Calcium 20 MG TAB PO SCH (21:03)
[2020-01-02] MEDS: Acetaminophen 500 MG TAB PO PRN (21:18)
[2020-01-03] MEDS: Dextrose 50% Abboject 50 ML SYRINGE SLOW IVP PRN (05:47)
[2020-01-03] MEDS: Midodrine HCl 5 MG TAB PO SCH ×3 (08:28→21:47)
[2020-01-03] MEDS: Sevelamer Carbonate 800 MG TAB PO SCH ×3 (08:28→17:08)
[2020-01-03] MEDS: Aspirin 81 mg Enteric Coated Tablet PO SCH (08:28)
[2020-01-03] MEDS: Fludrocortisone Acetate 0.1 MG TAB PO SCH (08:29)
[2020-01-03] MEDS: Heparin 5,000 UNITS/ML VIAL SC SCH ×2 (08:30→21:47)
[2020-01-03] MEDS: Insulin Glargine 20 UNITS in Pre-Filled Syringe 1 EACH SC SCH (08:30)
[2020-01-03 10:00] LABS: Anion Gap 16 mmol/L (10-20); BUN (Urea Nitrogen) 55 mg/dL (8.4-25.7); Calc. Creatinine Clearance 20 mL/min (70-130); Calcium 8.1 mg/dL (7.8-10.44); Carbon Dioxide 23 mmol/L (22-29); Chloride 96 mmol/L (98-107); Estimated GFR-MDRD 9; Glucose 71 mg/dL (70-105); Potassium 4.9 mmol/L (3.5-5.1); Sodium 130 mmol/L (136-145)
--- NOTE | 2020-01-03 10:01 | PRG ---
DATE OF SERVICE: 01/03/2020 SUBJECTIVE: A 54-year-old gentleman being seen for end-stage kidney disease. The patient denies any nausea, vomiting, or chest pain. PHYSICAL EXAMINATION: GENERAL: The patient is awake and alert. VITAL SIGNS: Afebrile, pulse 71, breathing 16, and blood pressure 87/52. HEENT: Head normocephalic and atraumatic. Eyes intact, no ulcers. Nose intact, no ulcers. Ears intact, no ulcers. NECK: Supple. No JVD. CHEST: Symmetrical and clear. CARDIOVASCULAR: Shows S1 and S2, no rub, no murmur. GASTROINTESTINAL: Abdomen is soft, bowel sounds positive. EXTREMITIES: Show no edema or ulcers. SKIN: Shows no rash or petechiae. MUSCULOSKELETAL: Shows no joint swelling or stiffness. GENITOURINARY: Shows no Abraham or CVA tenderness. NEUROLOGIC: Motor intact. Cranial nerves intact. LABORATORY DATA: Hemoglobin was 12.9. Creatinine is pending. ASSESSMENT AND PLAN: 1. Stage 6 chronic kidney disease. Continue PD. 2. Hypotension, started Florinef. 3. Hyperkalemia. Recheck potassium. 4. Secondary hyperparathyroidism. Continue calcitriol and binders. 5. Hyperphosphatemia. We would recommend taking binders aggressively. Job ID: [id number]
--- NOTE | 2020-01-03 12:27 | EKG ---
Test Reason : STAT Blood Pressure : / mmHG Vent. Rate : 084 BPM Atrial Rate : 072 BPM P-R Int : 000 ms QRS Dur : 080 ms QT Int : 434 ms P-R-T Axes : 037 056 -62 degrees QTc Int : 512 ms Sinus rhythm with Premature supraventricular complexes Low voltage QRS Nonspecific T wave abnormality Prolonged QT Abnormal ECG When compared with ECG of 29-DEC-2019 03:30, Premature supraventricular complexes are now Present QT has lengthened Confirmed by DR. Silke MANTILLA ([id number]) on 01/03/2020 12:27:04 PM Referred By: Confirmed By:DR. Silke MANTILLA
[2020-01-03 13:08] VITALS: BMI 32.9
--- NOTE | 2020-01-03 18:26 | PDOC.CPN ---
- Subjective Date: 01/03/20 Time: 18:24 Interval history: Tolerating PD, BP better since starting florinef. Pericardial tube still draining. - Review of Systems General: denies: fever/chills, weight/appetite/sleep changes, night sweats, fatigue Respiratory: denies: cough, congestion, shortness of breath, exercise intolerance Cardiovascular: denies: chest pain, palpitation, edema, paroxysmal nocturnal dyspnea, orthopnea Gastrointestinal: denies: nausea, vomiting, diarrhea, constipation, abd pain, GI bleeding Musculoskeletal: denies: pain, tenderness, stiffness, swelling, arthritis/ arthralgias Neurological: denies: numbness, syncope, seizure, weakness - Objective Allergies/Adverse Reactions: Allergies Allergy/AdvReac Type Severity Reaction Status Date / Time No Known Allergies Allergy Verified 12/23/19 14:30 Visit Medications: Current Medications Acetaminophen (Tylenol) 1,000 mg PO Q6H PRN PRN Reason: Moderate to Severe Pain (6-10) Last Admin: 01/02/20 21:18 Dose: 1,000 mg Aspirin (Ecotrin) 81 mg PO DAILY [facility] Last Admin: 01/03/20 08:28 Dose: 81 mg Atorvastatin Calcium (Lipitor) 20 mg PO HS [facility] Last Admin: 01/02/20 21:03 Dose: 20 mg Calcitriol (Rocaltrol) 0.25 mcg PO Q2D [facility] Dextrose/Water (Dextrose 50%) 25 gm SLOW IVP PRN PRN PRN Reason: Hypoglycemia Last Admin: 01/03/20 05:47 Dose: 25 gm Fentanyl (Sublimaze) 25 mcg SLOW IVP Q2H PRN PRN Reason: Severe Pain (7-10) Fludrocortisone Acetate (Florinef) 0.1 mg PO DAILY [facility] Last Admin: 01/03/20 08:29 Dose: 0.1 mg Gabapentin (Neurontin) 300 mg PO HS [facility] Last Admin: 01/02/20 21:03 Dose: 300 mg Glucagon (Glucagon) 1 mg IM PRN PRN PRN Reason: Hypoglycemia Guaifenesin/Codeine Phosphate (Robitussin Ac) 5 ml PO Q4H PRN PRN Reason: Cough Last Admin: 12/26/19 00:22 Dose: 5 ml Heparin Sodium (Porcine) (Heparin) 5,000 units SC BID [facility] Last Admin: 01/03/20 08:30 Dose: 5,000 units Dextrose/Water (D5w) 1,000 mls @ 0 mls/hr IV .Q0M PRN PRN Reason: Hypoglycemia Insulin Human Regular (Humulin R) 0 units SC .MODERATE SLIDING SC PRN PRN Reason: Moderate Correctional Scale Last Admin: 12/27/19 06:23 Dose: 8 unit Midodrine (Proamatine) 10 mg PO TID [facility] Last Admin: 01/03/20 15:19 Dose: 10 mg Nitroglycerin (Nitrostat) 0.4 mg SL Q5MIN PRN PRN Reason: Chest Pain Last Admin: 12/28/19 13:29 Dose: 0.4 mg Ondansetron HCl (Zofran) 4 mg SLOW IVP Q4H PRN PRN Reason: Nausea/Vomiting Last Admin: 12/31/19 09:18 Dose: 4 mg Phenol (Chloraseptic [place] 180 Ml Bot) 0 ml PO Q1H PRN PRN Reason: SORE THROAT Last Admin: 01/02/20 09:44 Dose: 2 spr Phenyleph/Shark Oil/[place] Butter (Preparation H) 1 supp CO Q6H PRN PRN Reason: Hemorrhoids Last Admin: 12/24/19 13:34 Dose: 1 supp Polyethylene Glycol (Miralax) 17 gm PO DAILYPRN PRN PRN Reason: Constipation Senna (Senokot) 2 tab PO HSPRN [facility] Sevelamer Carbonate (Renvela) 1,600 mg PO TID-[facility] Last Admin: 01/03/20 17:08 Dose: 1,600 mg Sodium Chloride (Flush - Normal Saline) 10 ml IVF Q12HR [facility] Last Admin: 01/03/20 08:31 Dose: 10 ml Sodium Chloride (Flush - Normal Saline) 10 ml IVF PRN PRN PRN Reason: Saline Flush Throat Lozenges (Cepastat Lozenges) 1 laxmi PO Q2H PRN PRN Reason: Sore Throat Last Admin: 01/02/20 04:00 Dose: 1 laxmi Tramadol HCl (Ultram) 50 mg PO Q12H PRN PRN Reason: Mild-Moderate Pain (1-5) Vital Signs & Weight: Vital Signs Temp Pulse Pulse Pulse Resp BP BP 01/03/20 16:34 97.5 F L 78 17 01/03/20 16:33 77 73 80/54 L 79/41 L 01/03/20 11:30 97.3 F L 71 18 01/03/20 08:20 97.8 F 71 18 BP Pulse Ox 01/03/20 16:34 94/59 L 97 01/03/20 16:33 01/03/20 11:30 82/56 L 98 01/03/20 08:20 85/51 L 94 L Admit Weight 228 lb 1.6 oz Weight 236 lb 5.369 oz - Quality Measures CV meds: Beta Dennis: Yes, Statin: Yes - Physical Exam General: alert & oriented x3 HEENT: mucus membranes moist Neck: supple neck Cardiac: regular rate and rhythm Lungs: clear to auscultation Neuro: grossly intact Abdomen: active bowel sounds Extremities: 2+ LE edema Skin: clear Musculoskeletal: no pain - Labs Result Diagrams: 01/02/20 10:15 01/03/20 09:28 Troponin/CKMB CK-MB (CK-2) 2.0 ng/mL (0-6.6) 12/29/19 03:36 Troponin I 0.096 ng/mL (< 0.028) H 12/29/19 06:27 - Telemetry Sinus rhythms and dysrhythmias: sinus rhythm - Assessment/Plan Assessment/Plan: 1. Chest pain, atypical, improved s/p window 2. ESRD 3. Hypotension 4. Pericardial effusion, large, s/p pericardial window 12/29, serosanguinous drainage continues. 5. Hyperkalemia, improved, on HD PLAN: - On midodrine. - BP better now on florinef. - On PD now.
--- NOTE | 2020-01-03 21:18 | PDOC.HOSPP ---
- Subjective Encounter Date: 01/03/20 Subjective: Feels ok. Tolerating the PD well. - Objective Vital Signs & Weight: Vital Signs (12 hours) Temp Pulse Pulse Pulse Resp BP BP 01/03/20 19:21 97.7 F 72 16 01/03/20 16:34 97.5 F L 78 17 01/03/20 16:33 77 73 80/54 L 79/41 L 01/03/20 11:30 97.3 F L 71 18 BP BP Pulse Ox 01/03/20 19:21 90/50 L 95 01/03/20 16:34 94/59 L 97 01/03/20 16:33 01/03/20 11:30 82/56 L 98 Weight Admit Weight 228 lb 1.6 oz Weight 236 lb 5.369 oz I&O: 01/02/20 01/03/20 01/04/20 06:59 06:59 06:59 Intake Total 360 480 Output Total 80 75 20 Balance 280 -75 460 Result Diagrams: 01/02/20 10:15 01/03/20 09:28 Additional Labs: Accuchecks 01/03/20 01/03/20 01/03/20 20:29 16:11 10:59 POC Glucose 190 H 144 H 91 01/03/20 01/03/20 06:23 05:43 POC Glucose 98 40 L* Hospitalist ROS - Medication Medications: Active Medications Generic Name Dose Route Start Last Admin Trade Name Freq PRN Reason Stop Dose Admin Acetaminophen 1,000 mg 12/27/19 20:50 01/02/20 21:18 Tylenol PO 1,000 mg Q6H PRN Administration Moderate to Severe Pain (6-10) Aspirin 81 mg 12/24/19 09:00 01/03/20 08:28 Ecotrin PO 81 mg DAILY REYNALDO Administration Atorvastatin Calcium 20 mg 12/23/19 21:00 01/02/20 21:03 Lipitor PO 20 mg HS REYNALDO Administration Dextrose/Water 25 gm 12/23/19 13:39 01/03/20 05:47 Dextrose 50% SLOW IVP 25 gm PRN PRN Administration Hypoglycemia Fludrocortisone Acetate 0.1 mg 01/03/20 09:00 01/03/20 08:29 Florinef PO 0.1 mg DAILY REYNALDO Administration Gabapentin 300 mg 12/29/19 21:00 01/02/20 21:03 Neurontin PO 300 mg HS REYNALDO Administration Guaifenesin/Codeine Phosphate 5 ml 12/26/19 00:08 12/26/19 00:22 Robitussin Ac PO 5 ml Q4H PRN Administration Cough Heparin Sodium (Porcine) 5,000 units 12/28/19 21:00 01/03/20 08:30 Heparin SC 5,000 units BID REYNALDO Administration Insulin Human Regular 0 units 12/23/19 13:39 12/27/19 06:23 Humulin R SC 8 unit .MODERATE SLIDING SC PRN Administration Moderate Correctional Scale Midodrine 10 mg 12/29/19 09:00 01/03/20 15:19 Proamatine PO 10 mg TID REYNALDO Administration Nitroglycerin 0.4 mg 12/23/19 13:40 12/28/19 13:29 Nitrostat SL 0.4 mg Q5MIN PRN Administration Chest Pain Ondansetron HCl 4 mg 12/30/19 19:45 12/31/19 09:18 Zofran SLOW IVP 4 mg Q4H PRN Administration Nausea/Vomiting Phenol 0 ml 01/02/20 09:07 01/02/20 09:44 Chloraseptic [place] 180 Ml Bot PO 2 spr Q1H PRN Administration SORE THROAT Phenyleph/Shark Oil/[place] Butter 1 supp 12/24/19 11:53 12/24/19 13:34 Preparation H [place] 1 supp Q6H PRN Administration Hemorrhoids Sevelamer Carbonate 1,600 mg 01/01/20 12:00 01/03/20 17:08 Renvela PO 1,600 mg TID-WM REYNALDO Administration Sodium Chloride 10 ml 12/31/19 09:00 01/03/20 08:31 Flush - Normal Saline IVF 10 ml Q12HR REYNALDO Administration Throat Lozenges 1 laxmi 01/01/20 11:53 01/02/20 04:00 Cepastat Lozenges PO 1 laxmi Q2H PRN Administration Sore Throat - Exam General Appearance: NAD, awake alert Heart: RRR, no murmur, no gallops, no rubs, normal peripheral pulses Respiratory: CTAB, no wheezes, no rales, no ronchi, normal chest expansion, no tachypnea, normal percussion Gastrointestinal: soft, non-tender, non-distended, normal bowel sounds, no palpable masses, no hepatomegaly, no splenomegaly, no bruit Extremities: no cyanosis, no clubbing, no edema, 2+ LE edema Hosp A/P (1) Hypotension Status: Acute (2) Chest pain Code(s): R07.9 - CHEST PAIN, UNSPECIFIED Status: Acute (3) ESRD (end stage renal disease) on dialysis Code(s): N18.6 - END STAGE RENAL DISEASE; Z99.2 - DEPENDENCE ON RENAL DIALYSIS Status: Acute (4) Pericardial effusion Code(s): I31.3 - PERICARDIAL EFFUSION (NONINFLAMMATORY) Status: Acute (5) Volume overload Code(s): E87.70 - FLUID OVERLOAD, UNSPECIFIED Status: Acute (6) Hyperkalemia Code(s): E87.5 - HYPERKALEMIA Status: Acute - Plan Continuing HD. Held today. Potassium improved. On Midodrine and now Florinef. BP still low, but stable at patient's baseline. Still has the pericardial drain. BP did not improve after the pericardial drainage/window. CP did. PT for weakness. Nephrology continuing to manage PD.
[2020-01-03] MEDS: Gabapentin 300 MG CAP PO SCH (21:47)
[2020-01-03] MEDS: Atorvastatin Calcium 20 MG TAB PO SCH (21:47)
[2020-01-04 05:19] LABS: Anion Gap 16 mmol/L (10-20); BUN (Urea Nitrogen) 60 mg/dL (8.4-25.7); Calc. Creatinine Clearance 19 mL/min (70-130); Carbon Dioxide 24 mmol/L (22-29); Chloride 95 mmol/L (98-107); Estimated GFR-MDRD 9; Glucose 184 mg/dL (70-105); Potassium 4.9 mmol/L (3.5-5.1); Sodium 130 mmol/L (136-145)
[2020-01-04] MEDS: Sevelamer Carbonate 800 MG TAB PO SCH ×3 (08:21→17:26)
[2020-01-04] MEDS: Aspirin 81 mg Enteric Coated Tablet PO SCH (08:21)
[2020-01-04] MEDS: Midodrine HCl 5 MG TAB PO SCH ×3 (08:21→20:42)
[2020-01-04] MEDS: Fludrocortisone Acetate 0.1 MG TAB PO SCH (08:21)
[2020-01-04] MEDS: Heparin 5,000 UNITS/ML VIAL SC SCH ×2 (08:21→20:41)
[2020-01-04] MEDS: Calcitriol 0.25 MCG CAP PO SCH (08:24)
--- NOTE | 2020-01-04 11:33 | PRG ---
DATE OF SERVICE: 01/04/2020 SUBJECTIVE: This is a 54-year-old gentleman, being seen for end-stage renal disease. The patient denied any nausea, vomiting, or chest pain. PHYSICAL EXAMINATION: General: The patient is awake and alert. VITAL SIGNS: Afebrile, pulse 50, breathing at 16, and blood pressure 94/62. HEENT: Head normocephalic and atraumatic. Eyes intact, no ulcers. Nose intact, no ulcers. Ears intact, no ulcers. NECK: Supple. No JVD. CHEST: Symmetrical and clear. CARDIOVASCULAR: Shows S1 and S2, no rub, no murmur. GASTROINTESTINAL: Abdomen is soft, bowel sounds positive. EXTREMITIES: Show no edema or ulcers. SKIN: Shows no rash or petechiae. MUSCULOSKELETAL: Shows no joint swelling or stiffness. GENITOURINARY: Shows no Abraham or CVA tenderness. NEUROLOGIC: Motor intact. Cranial nerves intact. LABORATORY DATA: Hemoglobin is 12.9, creatinine is 6.7, and potassium is 4.8. ASSESSMENT AND PLAN: 1. Stage 6 chronic kidney disease, stable. 2. Hypotension. We will increase the Florinef to 0.2 daily. 3. Anemia, stable. 4. Medication based on GFR appropriate. Job ID: [id number]
[2020-01-04] MEDS ORDERED: Fludrocortisone Acetate 0.1 MG TAB PO SCH (12:00)
--- NOTE | 2020-01-04 14:21 | PDOC.HOSPP ---
- Subjective Encounter Date: 01/04/20 Subjective: Has some sinus drainage and cough. Productive of discolored sputum. Otherwise concerned about getting his lunch soon. - Objective Vital Signs & Weight: Vital Signs (12 hours) Temp Pulse Pulse Pulse Resp BP BP 01/04/20 11:45 97.4 F L 76 16 01/04/20 10:17 78 78 81/59 L 79/58 L 01/04/20 08:18 97.3 F L 77 18 01/04/20 04:00 97.6 F 72 16 BP BP Pulse Ox 01/04/20 11:45 82/56 L 95 01/04/20 10:17 01/04/20 08:18 88/58 L 95 01/04/20 04:00 94/62 97 Weight Admit Weight 228 lb 1.6 oz Weight 233 lb I&O: 01/03/20 01/04/20 01/05/20 06:59 06:59 06:59 Intake Total 480 Output Total 75 35 Balance -75 445 Result Diagrams: 01/02/20 10:15 01/04/20 04:37 Additional Labs: Accuchecks 01/04/20 01/04/20 01/03/20 10:40 06:03 20:29 POC Glucose 246 H 171 H 190 H 01/03/20 16:11 POC Glucose 144 H Hospitalist ROS - Medication Medications: Active Medications Generic Name Dose Route Start Last Admin Trade Name Freq PRN Reason Stop Dose Admin Acetaminophen 1,000 mg 12/27/19 20:50 01/02/20 21:18 Tylenol PO 1,000 mg Q6H PRN Administration Moderate to Severe Pain (6-10) Aspirin 81 mg 12/24/19 09:00 01/04/20 08:21 Ecotrin PO 81 mg DAILY REYNALDO Administration Atorvastatin Calcium 20 mg 12/23/19 21:00 01/03/20 21:47 Lipitor PO 20 mg HS REYNALDO Administration Calcitriol 0.25 mcg 01/04/20 09:00 01/04/20 08:24 Rocaltrol PO 0.25 mcg Q2D REYNALDO Administration Dextrose/Water 25 gm 12/23/19 13:39 01/03/20 05:47 Dextrose 50% SLOW IVP 25 gm PRN PRN Administration Hypoglycemia Gabapentin 300 mg 12/29/19 21:00 01/03/20 21:47 Neurontin PO 300 mg HS REYNALDO Administration Guaifenesin/Codeine Phosphate 5 ml 12/26/19 00:08 12/26/19 00:22 Robitussin Ac PO 5 ml Q4H PRN Administration Cough Heparin Sodium (Porcine) 5,000 units 12/28/19 21:00 01/04/20 08:21 Heparin SC 5,000 units BID REYNALDO Administration Insulin Human Regular 0 units 12/23/19 13:39 12/27/19 06:23 Humulin R SC 8 unit .MODERATE SLIDING SC PRN Administration Moderate Correctional Scale Midodrine 10 mg 12/29/19 09:00 01/04/20 14:14 Proamatine PO 10 mg TID REYNALDO Administration Nitroglycerin 0.4 mg 12/23/19 13:40 12/28/19 13:29 Nitrostat SL 0.4 mg Q5MIN PRN Administration Chest Pain Ondansetron HCl 4 mg 12/30/19 19:45 12/31/19 09:18 Zofran SLOW IVP 4 mg Q4H PRN Administration Nausea/Vomiting Phenol 0 ml 01/02/20 09:07 01/02/20 09:44 Chloraseptic [place] 180 Ml Bot PO 2 spr Q1H PRN Administration SORE THROAT Phenyleph/Shark Oil/[place] Butter 1 supp 12/24/19 11:53 12/24/19 13:34 Preparation H MN 1 supp Q6H PRN Administration Hemorrhoids Sevelamer Carbonate 1,600 mg 01/01/20 12:00 01/04/20 12:06 Renvela PO 1,600 mg TID-WM REYNALDO Administration Sodium Chloride 10 ml 12/31/19 09:00 01/04/20 08:22 Flush - Normal Saline IVF 10 ml Q12HR REYNALDO Administration Throat Lozenges 1 laxmi 01/01/20 11:53 01/02/20 04:00 Cepastat Lozenges PO 1 laxmi Q2H PRN Administration Sore Throat - Exam General Appearance: NAD, awake alert ENT - other findings: aphthous ulcers of the tongue and pharynx, healing. Heart: RRR, no murmur, no gallops, no rubs, normal peripheral pulses Respiratory: CTAB, no wheezes, no rales, no ronchi, normal chest expansion, no tachypnea, normal percussion Gastrointestinal: soft, non-tender, non-distended, normal bowel sounds, no palpable masses, no hepatomegaly, no splenomegaly, no bruit Extremities: no cyanosis, no clubbing, no edema Skin: normal turgor Neurological: no focal deficits Musculoskeletal: generalized weakness Psychiatric: normal affect, normal behavior, A&O x 3 Hosp A/P (1) Hypotension Status: Acute (2) Chest pain Code(s): R07.9 - CHEST PAIN, UNSPECIFIED Status: Acute (3) ESRD (end stage renal disease) on dialysis Code(s): N18.6 - END STAGE RENAL DISEASE; Z99.2 - DEPENDENCE ON RENAL DIALYSIS Status: Acute (4) Pericardial effusion Code(s): I31.3 - PERICARDIAL EFFUSION (NONINFLAMMATORY) Status: Resolved (5) Volume overload Code(s): E87.70 - FLUID OVERLOAD, UNSPECIFIED Status: Acute (6) Hyperkalemia Code(s): E87.5 - HYPERKALEMIA Status: Acute (7) Sinusitis Code(s): J32.9 - CHRONIC SINUSITIS, UNSPECIFIED Status: Acute (8) Hyponatremia Code(s): E87.1 - HYPO-OSMOLALITY AND HYPONATREMIA Status: Acute (9) Hyperparathyroidism due to end stage renal disease on dialysis Code(s): N25.81 - SECONDARY HYPERPARATHYROIDISM OF RENAL ORIGIN; N18.6 - END STAGE RENAL DISEASE; Z99.2 - DEPENDENCE ON RENAL DIALYSIS Status: Acute (10) Aphthous stomatitis Code(s): K12.0 - RECURRENT ORAL APHTHAE Status: Acute - Plan Continuing PD. Potassium improved. On Midodrine and now Florinef. Increased dose of florinef BP still low, but stable at patient's baseline. Still has the pericardial drain. BP did not improve after the pericardial drainage/window. CP did. PT for weakness. Nephrology continuing to manage PD. Start abx for sinusitis. PRN's for aphthous ulcer pain. Patient reports he wants to go to rehab and some paperwork has been sent.
--- NOTE | 2020-01-04 15:30 | RAD ---
EXAM: Portable chest PROVIDED CLINICAL HISTORY: Cough COMPARISON: 12/27/2019 FINDINGS: Cardiac and mediastinal silhouette is unchanged in appearance. Right IJ dialysis catheter is again de monstrated in similar position, as is left subclavian central line. Right basilar pleural-parenchymal opacity appears similar to prior. Development of left pleural fluid. No evidence for pneumothorax. IMPRESSION: Right greater than left pleural fluid.
--- NOTE | 2020-01-04 18:53 | PDOC.CPN ---
- Subjective Date: 01/04/20 Time: 18:52 Interval history: BP remains borderline. - Review of Systems General: denies: fever/chills, weight/appetite/sleep changes, night sweats, fatigue Respiratory: denies: cough, congestion, shortness of breath, exercise intolerance Cardiovascular: denies: chest pain, palpitation, edema, paroxysmal nocturnal dyspnea, orthopnea Gastrointestinal: denies: nausea, vomiting, diarrhea, constipation, abd pain, GI bleeding Musculoskeletal: denies: pain, tenderness, stiffness, swelling, arthritis/ arthralgias Neurological: denies: numbness, syncope, seizure, weakness - Objective Allergies/Adverse Reactions: Allergies Allergy/AdvReac Type Severity Reaction Status Date / Time No Known Allergies Allergy Verified 12/23/19 14:30 Visit Medications: Current Medications Acetaminophen (Tylenol) 1,000 mg PO Q6H PRN PRN Reason: Moderate to Severe Pain (6-10) Last Admin: 01/02/20 21:18 Dose: 1,000 mg Amoxicillin/Clavulanate Potassium (Augmentin) 875 mg PO Q12HR [facility] Aspirin (Ecotrin) 81 mg PO DAILY [facility] Last Admin: 01/04/20 08:21 Dose: 81 mg Atorvastatin Calcium (Lipitor) 20 mg PO HS [facility] Last Admin: 01/03/20 21:47 Dose: 20 mg Calcitriol (Rocaltrol) 0.25 mcg PO Q2D [facility] Last Admin: 01/04/20 08:24 Dose: 0.25 mcg Dextrose/Water (Dextrose 50%) 25 gm SLOW IVP PRN PRN PRN Reason: Hypoglycemia Last Admin: 01/03/20 05:47 Dose: 25 gm Fentanyl (Sublimaze) 25 mcg SLOW IVP Q2H PRN PRN Reason: Severe Pain (7-10) Fludrocortisone Acetate (Florinef) 0.2 mg PO DAILY [facility] Gabapentin (Neurontin) 300 mg PO HS [facility] Last Admin: 01/03/20 21:47 Dose: 300 mg Glucagon (Glucagon) 1 mg IM PRN PRN PRN Reason: Hypoglycemia Guaifenesin/Codeine Phosphate (Robitussin Ac) 5 ml PO Q4H PRN PRN Reason: Cough Last Admin: 12/26/19 00:22 Dose: 5 ml Heparin Sodium (Porcine) (Heparin) 5,000 units SC BID [facility] Last Admin: 01/04/20 08:21 Dose: 5,000 units Dextrose/Water (D5w) 1,000 mls @ 0 mls/hr IV .Q0M PRN PRN Reason: Hypoglycemia Insulin Human Regular (Humulin R) 0 units SC .MODERATE SLIDING SC PRN PRN Reason: Moderate Correctional Scale Last Admin: 12/27/19 06:23 Dose: 8 unit Midodrine (Proamatine) 10 mg PO TID [facility] Last Admin: 01/04/20 14:14 Dose: 10 mg Nitroglycerin (Nitrostat) 0.4 mg SL Q5MIN PRN PRN Reason: Chest Pain Last Admin: 12/28/19 13:29 Dose: 0.4 mg Ondansetron HCl (Zofran) 4 mg SLOW IVP Q4H PRN PRN Reason: Nausea/Vomiting Last Admin: 12/31/19 09:18 Dose: 4 mg Phenol (Chloraseptic [place] 180 Ml Bot) 0 ml PO Q1H PRN PRN Reason: SORE THROAT Last Admin: 01/02/20 09:44 Dose: 2 spr Phenyleph/Shark Oil/[place] Butter (Preparation H) 1 supp NC Q6H PRN PRN Reason: Hemorrhoids Last Admin: 12/24/19 13:34 Dose: 1 supp Polyethylene Glycol (Miralax) 17 gm PO DAILYPRN PRN PRN Reason: Constipation Senna (Senokot) 2 tab PO HSPRN [facility] Sevelamer Carbonate (Renvela) 1,600 mg PO TID-[facility] Last Admin: 01/04/20 17:26 Dose: 1,600 mg Sodium Chloride (Flush - Normal Saline) 10 ml IVF Q12HR [facility] Last Admin: 01/04/20 08:22 Dose: 10 ml Sodium Chloride (Flush - Normal Saline) 10 ml IVF PRN PRN PRN Reason: Saline Flush Throat Lozenges (Cepastat Lozenges) 1 laxmi PO Q2H PRN PRN Reason: Sore Throat Last Admin: 01/02/20 04:00 Dose: 1 laxmi Tramadol HCl (Ultram) 50 mg PO Q12H PRN PRN Reason: Mild-Moderate Pain (1-5) Vital Signs & Weight: Vital Signs Temp Pulse Pulse Pulse Resp BP BP 01/04/20 15:38 97.4 F L 74 18 01/04/20 11:45 97.4 F L 76 16 01/04/20 10:17 78 78 81/59 L 79/58 L 01/04/20 08:18 97.3 F L 77 18 BP Pulse Ox 01/04/20 15:38 82/59 L 96 01/04/20 11:45 82/56 L 95 01/04/20 10:17 01/04/20 08:18 88/58 L 95 Admit Weight 228 lb 1.6 oz Weight 233 lb - Quality Measures CV meds: Beta Dennis: Yes, Statin: Yes - Physical Exam General: alert & oriented x3 HEENT: mucus membranes moist Neck: supple neck Cardiac: regular rate and rhythm Lungs: normal breath sounds Neuro: grossly intact Abdomen: active bowel sounds Extremities: 1+ LE edema Skin: clear Musculoskeletal: no pain - Labs Result Diagrams: 01/02/20 10:15 01/04/20 04:37 Troponin/CKMB CK-MB (CK-2) 2.0 ng/mL (0-6.6) 12/29/19 03:36 Troponin I 0.096 ng/mL (< 0.028) H 12/29/19 06:27 - Telemetry Sinus rhythms and dysrhythmias: sinus rhythm - Assessment/Plan Assessment/Plan: 1. Chest pain, atypical, improved s/p window 2. ESRD 3. Hypotension 4. Pericardial effusion, large, s/p pericardial window 12/29, serosanguinous drainage continues. 5. Hyperkalemia, improved, on HD PLAN: - On midodrine and florinef. - On PD now. - Pericardial tube out. Echo pending.
[2020-01-04] MEDS: Amoxicillin/Potassium Clav 875 MG TAB PO SCH (20:41)
[2020-01-04] MEDS: Atorvastatin Calcium 20 MG TAB PO SCH (20:42)
[2020-01-04] MEDS: Gabapentin 300 MG CAP PO SCH (20:42)
[2020-01-05 05:58] LABS: Anion Gap 17 mmol/L (10-20); BUN (Urea Nitrogen) 63 mg/dL (8.4-25.7); Calc. Creatinine Clearance 17 mL/min (70-130); Calcium 7.8 mg/dL (7.8-10.44); Carbon Dioxide 22 mmol/L (22-29); Chloride 95 mmol/L (98-107); Estimated GFR-MDRD 8; Glucose 278 mg/dL (70-105); Potassium 4.9 mmol/L (3.5-5.1); Sodium 129 mmol/L (136-145)
--- NOTE | 2020-01-05 09:09 | PRG ---
DATE OF SERVICE: 01/05/2020 SUBJECTIVE: This is a 54-year-old gentleman, being seen for end-stage kidney disease. The patient denied any nausea, vomiting, or chest pain. PHYSICAL EXAMINATION: General: The patient is awake and alert. Vital Signs: Afebrile, pulse 81, breathing at 16, blood pressure 102/62. HEENT: Head normocephalic and atraumatic. Eyes intact, no ulcers. Nose intact, no ulcers. Ears intact, no ulcers. Neck: Supple. No JVD. Chest: Symmetrical and clear. Cardiovascular: Shows S1 and S2, no rub, no murmur. Gastrointestinal: Abdomen is soft, bowel sounds positive. Extremities: Show no edema or ulcers. Skin: Shows no rash or petechiae. Musculoskeletal: Shows no joint swelling or stiffness. Genitourinary: Shows no Abraham or CVA tenderness. Neurologic: Motor intact. Cranial nerves intact. LABORATORY DATA: Labs reviewed. ASSESSMENT AND PLAN: 1. Stage 6 chronic kidney disease, plan dialysis. 2. Hypertension, stable. 3. Anemia, stable. 4. Medication based on GFR appropriate. Job ID: [id number]
[2020-01-05] MEDS: Amoxicillin/Potassium Clav 875 MG TAB PO SCH ×2 (09:21→20:55)
[2020-01-05] MEDS: Aspirin 81 mg Enteric Coated Tablet PO SCH (09:25)
[2020-01-05] MEDS: Fludrocortisone Acetate 0.1 MG TAB PO SCH (09:34)
[2020-01-05] MEDS: Sevelamer Carbonate 800 MG TAB PO SCH ×3 (09:35→16:24)
[2020-01-05] MEDS: Midodrine HCl 5 MG TAB PO SCH ×3 (09:36→20:55)
[2020-01-05] MEDS: Heparin 5,000 UNITS/ML VIAL SC SCH ×2 (09:39→20:56)
[2020-01-05] MEDS: Insulin Regular 300 UNITS/3 ML VIAL SC PRN ×2 (12:30→16:22)
--- NOTE | 2020-01-05 14:42 | PDOC.CPN ---
- Subjective Date: 01/05/20 Time: 14:40 Interval history: No new issues. No more chest pain. - Review of Systems Gastrointestinal: denies: nausea, vomiting, diarrhea, constipation, abd pain, GI bleeding Musculoskeletal: denies: pain, tenderness, stiffness, swelling, arthritis/ arthralgias Neurological: denies: numbness, syncope, seizure, weakness - Objective Allergies/Adverse Reactions: Allergies Allergy/AdvReac Type Severity Reaction Status Date / Time No Known Allergies Allergy Verified 12/23/19 14:30 Visit Medications: Current Medications Acetaminophen (Tylenol) 1,000 mg PO Q6H PRN PRN Reason: Moderate to Severe Pain (6-10) Last Admin: 01/02/20 21:18 Dose: 1,000 mg Amoxicillin/Clavulanate Potassium (Augmentin) 875 mg PO Q12HR [facility] Last Admin: 01/05/20 09:21 Dose: 875 mg Aspirin (Ecotrin) 81 mg PO DAILY [facility] Last Admin: 01/05/20 09:25 Dose: 81 mg Atorvastatin Calcium (Lipitor) 20 mg PO HS [facility] Last Admin: 01/04/20 20:42 Dose: 20 mg Calcitriol (Rocaltrol) 0.25 mcg PO Q2D [facility] Last Admin: 01/04/20 08:24 Dose: 0.25 mcg Dextrose/Water (Dextrose 50%) 25 gm SLOW IVP PRN PRN PRN Reason: Hypoglycemia Last Admin: 01/03/20 05:47 Dose: 25 gm Fentanyl (Sublimaze) 25 mcg SLOW IVP Q2H PRN PRN Reason: Severe Pain (7-10) Fludrocortisone Acetate (Florinef) 0.2 mg PO DAILY [facility] Last Admin: 01/05/20 09:34 Dose: 0.2 mg Gabapentin (Neurontin) 300 mg PO HS [facility] Last Admin: 01/04/20 20:42 Dose: 300 mg Glucagon (Glucagon) 1 mg IM PRN PRN PRN Reason: Hypoglycemia Guaifenesin/Codeine Phosphate (Robitussin Ac) 5 ml PO Q4H PRN PRN Reason: Cough Last Admin: 12/26/19 00:22 Dose: 5 ml Heparin Sodium (Porcine) (Heparin) 5,000 units SC BID [facility] Last Admin: 01/05/20 09:39 Dose: 5,000 units Dextrose/Water (D5w) 1,000 mls @ 0 mls/hr IV .Q0M PRN PRN Reason: Hypoglycemia Insulin Human Regular (Humulin R) 0 units SC .MODERATE SLIDING SC PRN PRN Reason: Moderate Correctional Scale Last Admin: 01/05/20 12:30 Dose: 6 unit Midodrine (Proamatine) 10 mg PO TID [facility] Last Admin: 01/05/20 09:36 Dose: 10 mg Nitroglycerin (Nitrostat) 0.4 mg SL Q5MIN PRN PRN Reason: Chest Pain Last Admin: 12/28/19 13:29 Dose: 0.4 mg Ondansetron HCl (Zofran) 4 mg SLOW IVP Q4H PRN PRN Reason: Nausea/Vomiting Last Admin: 12/31/19 09:18 Dose: 4 mg Phenol (Chloraseptic [place] 180 Ml Bot) 0 ml PO Q1H PRN PRN Reason: SORE THROAT Last Admin: 01/02/20 09:44 Dose: 2 spr Phenyleph/Shark Oil/[place] Butter (Preparation H) 1 supp SC Q6H PRN PRN Reason: Hemorrhoids Last Admin: 12/24/19 13:34 Dose: 1 supp Polyethylene Glycol (Miralax) 17 gm PO DAILYPRN PRN PRN Reason: Constipation Senna (Senokot) 2 tab PO HSPRN [facility] Sevelamer Carbonate (Renvela) 1,600 mg PO TID-[facility] Last Admin: 01/05/20 12:28 Dose: 1,600 mg Sodium Chloride (Flush - Normal Saline) 10 ml IVF Q12HR [facility] Last Admin: 01/05/20 09:44 Dose: 10 ml Sodium Chloride (Flush - Normal Saline) 10 ml IVF PRN PRN PRN Reason: Saline Flush Throat Lozenges (Cepastat Lozenges) 1 laxmi PO Q2H PRN PRN Reason: Sore Throat Last Admin: 01/02/20 04:00 Dose: 1 laxmi Tramadol HCl (Ultram) 50 mg PO Q12H PRN PRN Reason: Mild-Moderate Pain (1-5) Vital Signs & Weight: Vital Signs Temp Pulse Resp BP BP BP BP 01/05/20 11:55 80 14 89/62 L 01/05/20 10:29 93/63 93/62 01/05/20 08:00 97.3 F L 81 16 102/74 01/05/20 04:00 97.5 F L 72 16 102/62 Pulse Ox 01/05/20 11:55 96 01/05/20 10:29 01/05/20 08:00 92 L 01/05/20 04:00 98 Admit Weight 228 lb 1.6 oz Weight 234 lb 2.095 oz - Quality Measures CV meds: Beta Dennis: Yes, Statin: Yes - Physical Exam General: alert & oriented x3 HEENT: mucus membranes moist Neck: supple neck Cardiac: regular rate and rhythm Lungs: clear to auscultation Neuro: grossly intact Abdomen: active bowel sounds Extremities: 1+ LE edema Skin: clear Musculoskeletal: no pain - Labs Result Diagrams: 01/02/20 10:15 01/05/20 04:27 Troponin/CKMB CK-MB (CK-2) 2.0 ng/mL (0-6.6) 12/29/19 03:36 Troponin I 0.096 ng/mL (< 0.028) H 12/29/19 06:27 - Telemetry Sinus rhythms and dysrhythmias: sinus rhythm - Assessment/Plan Assessment/Plan: 1. Chest pain, atypical, improved 2. ESRD 3. Hypotension 4. Pericardial effusion, large, s/p pericardial window. Drain out yesterday. PLAN: - On midodrine and florinef. - On PD now. - Pericardial tube out. Echo with minimal effusion. - Will sign off. Please call with any questions.
[2020-01-05] MEDS: Atorvastatin Calcium 20 MG TAB PO SCH (20:55)
[2020-01-05] MEDS: Gabapentin 300 MG CAP PO SCH (20:56)
--- NOTE | 2020-01-05 22:02 | PDOC.HOSPP ---
- Subjective Encounter Date: 01/05/20 Subjective: Feels ok. Still has some drainage and cough. Nurse reports some blood tinge at times. He still reports very weak legs. Wants to get rehab. - Objective Vital Signs & Weight: Vital Signs (12 hours) Temp Pulse Resp BP BP BP Pulse Ox 01/05/20 20:00 97.6 F 80 18 82/58 L 98 01/05/20 16:00 97.6 F 78 14 87/60 L 94 L 01/05/20 11:55 80 14 89/62 L 96 01/05/20 10:29 93/63 93/62 Weight Admit Weight 228 lb 1.6 oz Weight 234 lb 2.095 oz I&O: 01/04/20 01/05/20 01/06/20 06:59 06:59 06:59 Intake Total 480 720 Output Total 35 0 Balance 445 720 Result Diagrams: 01/02/20 10:15 01/05/20 04:27 Additional Labs: Accuchecks 01/05/20 01/05/20 01/05/20 20:53 16:20 10:53 POC Glucose 274 H 265 H 259 H 01/05/20 05:49 POC Glucose 292 H Hospitalist ROS - Medication Medications: Active Medications Generic Name Dose Route Start Last Admin Trade Name Freq PRN Reason Stop Dose Admin Acetaminophen 1,000 mg 12/27/19 20:50 01/02/20 21:18 Tylenol PO 1,000 mg Q6H PRN Administration Moderate to Severe Pain (6-10) Amoxicillin/Clavulanate Potassium 875 mg 01/04/20 21:00 01/05/20 20:55 Augmentin PO 875 mg Q12HR REYNALDO Administration Aspirin 81 mg 12/24/19 09:00 01/05/20 09:25 Ecotrin PO 81 mg DAILY REYNALDO Administration Atorvastatin Calcium 20 mg 12/23/19 21:00 01/05/20 20:55 Lipitor PO 20 mg HS REYNALDO Administration Calcitriol 0.25 mcg 01/04/20 09:00 01/04/20 08:24 Rocaltrol PO 0.25 mcg Q2D REYNALDO Administration Dextrose/Water 25 gm 12/23/19 13:39 01/03/20 05:47 Dextrose 50% SLOW IVP 25 gm PRN PRN Administration Hypoglycemia Fludrocortisone Acetate 0.2 mg 01/05/20 09:00 01/05/20 09:34 Florinef PO 0.2 mg DAILY REYNALDO Administration Gabapentin 300 mg 12/29/19 21:00 01/05/20 20:56 Neurontin PO 300 mg HS REYNALDO Administration Guaifenesin/Codeine Phosphate 5 ml 12/26/19 00:08 12/26/19 00:22 Robitussin Ac PO 5 ml Q4H PRN Administration Cough Heparin Sodium (Porcine) 5,000 units 12/28/19 21:00 01/05/20 20:56 Heparin SC 5,000 units BID REYNALDO Administration Insulin Human Regular 0 units 12/23/19 13:39 01/05/20 16:22 Humulin R SC 6 unit .MODERATE SLIDING SC PRN Administration Moderate Correctional Scale Midodrine 10 mg 12/29/19 09:00 01/05/20 20:55 Proamatine PO 10 mg TID REYNALDO Administration Nitroglycerin 0.4 mg 12/23/19 13:40 12/28/19 13:29 Nitrostat SL 0.4 mg Q5MIN PRN Administration Chest Pain Ondansetron HCl 4 mg 12/30/19 19:45 12/31/19 09:18 Zofran SLOW IVP 4 mg Q4H PRN Administration Nausea/Vomiting Phenol 0 ml 01/02/20 09:07 01/02/20 09:44 Chloraseptic [place] 180 Ml Bot PO 2 spr Q1H PRN Administration SORE THROAT Phenyleph/Shark Oil/[place] Butter 1 supp 12/24/19 11:53 12/24/19 13:34 Preparation H [place] 1 supp Q6H PRN Administration Hemorrhoids Sevelamer Carbonate 1,600 mg 01/01/20 12:00 01/05/20 16:24 Renvela PO 1,600 mg TID-WM REYNALDO Administration Sodium Chloride 10 ml 12/31/19 09:00 01/05/20 20:56 Flush - Normal Saline IVF 10 ml Q12HR REYNALDO Administration Throat Lozenges 1 laxmi 01/01/20 11:53 01/02/20 04:00 Cepastat Lozenges PO 1 laxmi Q2H PRN Administration Sore Throat - Exam General Appearance: NAD, awake alert Heart: RRR, no murmur, no gallops, no rubs, normal peripheral pulses Respiratory: CTAB, no wheezes, no rales, no ronchi, normal chest expansion, no tachypnea, normal percussion Gastrointestinal: soft, non-tender, non-distended, normal bowel sounds, no palpable masses, no hepatomegaly, no splenomegaly, no bruit Extremities: 1+ LE edema Skin: normal turgor Musculoskeletal: generalized weakness Psychiatric: normal affect, normal behavior, A&O x 3 Hosp A/P (1) Hypotension Status: Acute Plan: Baseline BP is 80's-90's. Has been about that here. Slightly better on midodrine and Florinef. Limited ability to remove volume with dialysis. (2) Chest pain Code(s): R07.9 - CHEST PAIN, UNSPECIFIED Status: Acute Plan: Resolved with pericardial window. (3) ESRD (end stage renal disease) on dialysis Code(s): N18.6 - END STAGE RENAL DISEASE; Z99.2 - DEPENDENCE ON RENAL DIALYSIS Status: Acute Plan: Initially on HD. Converted to PD on Wed. Tolerating it well. Discussed with nephrology. Anticipate continued PD in the hospital until Wednesday or later. (4) Pericardial effusion Code(s): I31.3 - PERICARDIAL EFFUSION (NONINFLAMMATORY) Status: Resolved Plan: S/P pericardial window Drain removed 01/04/20 (5) Volume overload Code(s): E87.70 - FLUID OVERLOAD, UNSPECIFIED Status: Acute Plan: Have not been able remove much volume because of the low blood pressure. (6) Hyperkalemia Code(s): E87.5 - HYPERKALEMIA Status: Acute Plan: Intermittently problematic with dialysis. (7) Sinusitis Code(s): J32.9 - CHRONIC SINUSITIS, UNSPECIFIED Status: Acute Plan: Oral antibiotics. (8) Hyponatremia Code(s): E87.1 - HYPO-OSMOLALITY AND HYPONATREMIA Status: Acute Plan: Secondary to ESRD. (9) Hyperparathyroidism due to end stage renal disease on dialysis Code(s): N25.81 - SECONDARY HYPERPARATHYROIDISM OF RENAL ORIGIN; N18.6 - END STAGE RENAL DISEASE; Z99.2 - DEPENDENCE ON RENAL DIALYSIS Status: Acute Plan: On binders per nephrology. (10) Aphthous stomatitis Code(s): K12.0 - RECURRENT ORAL APHTHAE Status: Acute Plan: PRN's for pain. - Plan Above Patient reports he wants to go to rehab and some paperwork has been sent.
[2020-01-05] MEDS ORDERED: Insulin Regular 300 UNITS/3 ML VIAL SC PRN (22:40)
[2020-01-06] MEDS: Acetaminophen 500 MG TAB PO PRN ×2 (04:31→13:39)
[2020-01-06 07:07] LABS: Anion Gap 18 mmol/L (10-20); BUN (Urea Nitrogen) 75 mg/dL (8.4-25.7); Calc. Creatinine Clearance 17 mL/min (70-130); Calcium 7.8 mg/dL (7.8-10.44); Carbon Dioxide 23 mmol/L (22-29); Chloride 92 mmol/L (98-107); Estimated GFR-MDRD 7; Glucose 254 mg/dL (70-105); Potassium 4.8 mmol/L (3.5-5.1); Sodium 128 mmol/L (136-145)
[2020-01-06] MEDS: Heparin 5,000 UNITS/ML VIAL SC SCH ×2 (08:21→22:03)
[2020-01-06] MEDS: Amoxicillin/Potassium Clav 875 MG TAB PO SCH ×2 (08:23→22:02)
[2020-01-06] MEDS: Midodrine HCl 5 MG TAB PO SCH ×3 (08:23→22:02)
[2020-01-06] MEDS: Sevelamer Carbonate 800 MG TAB PO SCH ×3 (08:23→17:07)
[2020-01-06] MEDS: Calcitriol 0.25 MCG CAP PO SCH (08:23)
[2020-01-06] MEDS: Fludrocortisone Acetate 0.1 MG TAB PO SCH (08:24)
[2020-01-06] MEDS: Aspirin 81 mg Enteric Coated Tablet PO SCH (08:24)
[2020-01-06] MEDS ORDERED: Cyclobenzaprine 10 MG TAB PO SCH ×2 (11:00→18:15)
--- NOTE | 2020-01-06 11:06 | PRG ---
DATE OF SERVICE: 01/06/2020 SUBJECTIVE: This is a 54-year-old gentleman being seen for end-stage kidney disease. The patient denied nausea, vomiting, or chest pain. OBJECTIVE: GENERAL: The patient is awake and alert. VITAL SIGNS: Afebrile, pulse 75, breathing at 16, blood pressure 115/55. HEENT: Head normocephalic and atraumatic. Eyes intact, no ulcers. Nose intact , no ulcers. Ears intact, no ulcers. NECK: Supple. No JVD. CHEST: Symmetrical and clear. CARDIOVASCULAR: Shows S1 and S2, no rub, no murmur. GASTROINTESTINAL: Abdomen is soft, bowel sounds positive. EXTREMITIES: Lower extremity shows 4+ edema. SKIN: Shows no rash or petechiae. MUSCULOSKELETAL: Shows no joint swelling or stiffness. GENITOURINARY: Shows no Abraham or CVA tenderness. NEUROLOGIC: Motor intact. Cranial nerves intact. LABORATORY DATA: Labs show hemoglobin is 12.9, creatinine is 7.6. ASSESSMENT AND PLAN: 1. Stage 6 chronic kidney disease. With Low BP will hold Peritoneal dialysis. 2. Hypotension. Continue Florinef. Increase the dose as indicated. 3. Edema. Continue dialysis. Overall prognosis is poor. Job ID: [id number] [facility]
[2020-01-06] MEDS ORDERED: PERITON DIALYSIS CATH SCH (11:15)
[2020-01-06] MEDS ORDERED: HEPARIN CATH SCH (11:15)
[2020-01-06] MEDS: Insulin Regular 300 UNITS/3 ML VIAL SC PRN (11:31)
[2020-01-06 12:59] LABS: RBC Count-Automated (BF) 65 /cumm; WBC/Nucleated-Auto (BF) 390 uL
[2020-01-06 13:13] LABS: BF Color Yellow; Body Fluid Source Peritoneal Fluid; Clarity Hazy (Clear); Tube # EDTA
[2020-01-06 13:16] LABS: BF Segmented Neutrophils 66 %; Cell Count Non Hematic 25 %; Lymphocytes 9 %
--- NOTE | 2020-01-06 21:09 | PDOC.HOSPP ---
- Subjective Encounter Date: 01/06/20 Encounter Time: 08:00 Subjective: overnight, no events. blood pressure 80s-110s/60s, asymptomatic. This morning, lying comfortably in bed. complains of episodic left buttock cramping - Objective Vital Signs & Weight: Vital Signs (12 hours) Temp Pulse Resp BP Pulse Ox 01/06/20 16:00 97.3 F L 80 20 79/55 L 96 01/06/20 11:24 97.3 F L 70 18 71/49 L 96 Weight Admit Weight 228 lb 1.6 oz Weight 234 lb 2.095 oz I&O: 01/05/20 01/06/20 01/07/20 06:59 06:59 06:59 Intake Total 720 240 500 Output Total 0 0 1175 Balance 720 240 -675 Result Diagrams: 01/02/20 10:15 01/06/20 06:35 Additional Labs: Accuchecks 01/06/20 01/06/20 01/06/20 17:10 11:14 05:33 POC Glucose 180 H 256 H 249 H Hospitalist ROS - Review of Systems Constitutional: denies: fever, chills, sweats Respiratory: reports: cough, dry. denies: shortness of breath, hemoptysis, SOB with excertion, pleuritic pain, sputum Cardiovascular: denies: chest pain, palpitations, orthopnea, paroxysmal noc. dyspnea Gastrointestinal: denies: nausea, vomiting, abdominal pain, diarrhea, constipation, melena, hematochezia Genitourinary: denies: dysuria, frequency, incontinence, hematuria Skin: reports: rash Neurological: reports: weakness. denies: numbness, change in speech - Medication Medications: Active Medications Generic Name Dose Route Start Last Admin Trade Name Freq PRN Reason Stop Dose Admin Acetaminophen 1,000 mg 12/27/19 20:50 01/06/20 13:39 Tylenol PO 1,000 mg Q6H PRN Administration Moderate to Severe Pain (6-10) Amoxicillin/Clavulanate Potassium 875 mg 01/04/20 21:00 01/06/20 08:23 Augmentin PO 875 mg Q12HR REYNALDO Administration Aspirin 81 mg 12/24/19 09:00 01/06/20 08:24 Ecotrin PO 81 mg DAILY REYNALDO Administration Calcitriol 0.25 mcg 01/04/20 09:00 01/06/20 08:23 Rocaltrol PO 0.25 mcg Q2D REYNALDO Administration Dextrose/Water 25 gm 12/23/19 13:39 01/03/20 05:47 Dextrose 50% SLOW IVP 25 gm PRN PRN Administration Hypoglycemia Gabapentin 300 mg 12/29/19 21:00 01/05/20 20:56 Neurontin PO 300 mg HS REYNALDO Administration Guaifenesin/Codeine Phosphate 5 ml 12/26/19 00:08 12/26/19 00:22 Robitussin Ac PO 5 ml Q4H PRN Administration Cough Heparin Sodium (Porcine) 5,000 units 12/28/19 21:00 01/06/20 08:21 Heparin SC 5,000 units BID REYNALDO Administration Insulin Human Regular 0 units 12/23/19 13:39 01/06/20 11:31 Humulin R SC 6 unit .MODERATE SLIDING SC PRN Administration Moderate Correctional Scale Insulin Human Regular 0 units 01/05/20 22:40 01/05/20 23:20 Humulin R SC 3 unit .BEDTIME SLIDING SC PRN Administration Bedtime Correctional Scale Midodrine 10 mg 12/29/19 09:00 01/06/20 13:40 Proamatine PO 10 mg TID REYNALDO Administration Nitroglycerin 0.4 mg 12/23/19 13:40 12/28/19 13:29 Nitrostat SL 0.4 mg Q5MIN PRN Administration Chest Pain Ondansetron HCl 4 mg 12/30/19 19:45 12/31/19 09:18 Zofran SLOW IVP 4 mg Q4H PRN Administration Nausea/Vomiting Phenol 0 ml 01/02/20 09:07 01/02/20 09:44 Chloraseptic Amity 180 Ml Bot PO 2 spr Q1H PRN Administration SORE THROAT Phenyleph/Shark Oil/Martelle Butter 1 supp 12/24/19 11:53 12/24/19 13:34 Preparation H NV 1 supp Q6H PRN Administration Hemorrhoids Sevelamer Carbonate 1,600 mg 01/01/20 12:00 01/06/20 17:07 Renvela PO 1,600 mg TID-WM REYNALDO Administration Sodium Chloride 10 ml 12/31/19 09:00 01/06/20 08:35 Flush - Normal Saline IVF 10 ml Q12HR REYNALDO Administration Throat Lozenges 1 laxmi 01/01/20 11:53 01/02/20 04:00 Cepastat Lozenges PO 1 laxmi Q2H PRN Administration Sore Throat Tramadol HCl 50 mg 01/01/20 10:17 01/06/20 07:30 Ultram PO 50 mg Q12H PRN Administration Mild-Moderate Pain (1-5) - Exam General Appearance: NAD, awake alert Neck: no JVD Heart: RRR, no murmur, no gallops, no rubs Respiratory: no wheezes, no rales, no ronchi Respiratory - other findings: b/l rhonchi Gastrointestinal: soft, non-tender, non-distended, normal bowel sounds Extremities - other findings: b/l LE pitting edema to knee level Musculoskeletal: generalized weakness Psychiatric: normal affect, normal behavior, A&O x 3
[2020-01-06] MEDS ORDERED: Sodium Chloride 0.9% 250 ML IV SCH (22:00)
[2020-01-06] MEDS: Gabapentin 300 MG CAP PO SCH (22:03)
--- NOTE | 2020-01-06 22:49 | RAD ---
EXAM: XR Chest 1 View Portable PROVIDED CLINICAL HISTORY: Cough COMPARISON: 01/04/2020 FINDINGS: Examination is rotated, limiting assessment. Heart and mediastinum is not definitely changed in appea aaron. Central lines are again seen. Right hemithoracic pleural and parenchymal opacity appears similar. Prominence of the pulmonary vasculature and pulmonary interstitium. No evidence for pneumoth orax. IMPRESSION: Findings suggesting congestive failure or volume overload. Persistent right hemithoracic pleural and/ or parenchymal opacity.
[2020-01-06] MEDS ORDERED: Cyclobenzaprine 10 MG TAB PO PRN (23:59)
[2020-01-07 03:11] VITALS: BP 78/40
[2020-01-07] MEDS ORDERED: Norepinephrine 8 MG/0.9% NS 250 ML ONE (04:58)
[2020-01-07] MEDS ORDERED: Norepinephrine 8 MG/0.9% NS 250 ML IVPB PRN (05:12)
[2020-01-07] MEDS ORDERED: Ventilator Sedation Protocol 1 EACH FS SCH (05:15)
--- NOTE | 2020-01-07 05:17 | PDOC.EVN ---
Event Note - Event Note Event Note: Had respiratory arrest, hypotensive intubated and placed On vent transtered to CCU will start levopped stat labs CBC, BMP, ABG consult pulmonary
[2020-01-07] MEDS ORDERED: Propofol BOLUS 1,000 MG/100 ML VIAL IV PRN (05:22)
[2020-01-07] MEDS ORDERED: Morphine 2 MG/ML SYRINGE SLOW IVP PRN ×2 (05:22→12:53)
[2020-01-07] MEDS ORDERED: Lorazepam 2 MG/ML VIAL SLOW IVP PRN ×2 (05:22→12:53)
[2020-01-07] MEDS ORDERED: DISCONTINUE PREVIOUS NARCOTIC PAIN MEDICATIONS AND BENZODIAZEPINES FS SCH (05:22)
[2020-01-07] MEDS ORDERED: Fentanyl BOLUS 250 ML IVPB PRN (05:22)
[2020-01-07] MEDS ORDERED: fentaNYL Citrate/PF 2,000 MCG in Sodium Chloride 0.9% 60 ML IV SCH (05:22)
[2020-01-07] MEDS ORDERED: Propofol 1,000 MG/100 ML VIAL IV PRN (05:22)
--- NOTE | 2020-01-07 05:25 | PDOC.EVN ---
Event Note - Event Note Event Note: Code green called, which turned to code blue within one minute. Responded immediately to code blue. Pt was found to be experiencing acute respiratory failure. Due to pt's hx of ESRD he was given rocuronium and etomidate. Pt was then intubated using a glidescope, with 7.5 ET tube on first attempt. Placement confirmed with auscultation and capnography. [place] blood was present in the oral cavity as well as near the vocal cords. ET tube was securely placed at 23 cm at the lips. CXR confirmed placement of ET tube. ET tube appeared to be 4 cm above fritz, and will be advanced 2 cm by RT. Pt was then started on levofed drip for BP support, and care was deferred to primary team, Dr. Sousa. Please see code record for full description of dosages, times and complete history. Upper level resident, Dr. Corazon MD, was with me during the entirety of the code.
[2020-01-07] MEDS ORDERED: Pantoprazole 80 MG, Admixture Fee 1 EACH in Sodium Chloride 0.9% 100 ML IVPB SCH (05:45)
[2020-01-07 05:46] LABS: Actual Bicarbonate (HCO3a) 13.1 mEq/L (22-28); Base Excess (BEa) -13.6 mEq/L (-2.0 to +3.0); CO2 Tension 33.4 mmHg (35.0-45.0); Calcium, Ionized 0.96 mmol/L (1.12-1.30); Carboxyhemoglobin (COHb) 1.3 gm% (0.0-3.0); Hemoglobin (Hb) 11.1 g/dL (14.0-18.0); O2 Tension (PaO2) 87.2 mmHg (80.0-100.0); Potassium - ABG Lab 5.14 mmol/L (3.70-5.30)
[2020-01-07 05:52] LABS: Puncture Site LBA; pH, Arterial 7.21 (7.35-7.45)
[2020-01-07 06:01] LABS: Hemoglobin 11.2 g/dL (14.0-18.0); Mean Corpuscular HGB CONC 31.6 g/dL (32.0-36.0); Mean Corpuscular Hemoglobin 31.6 pg (27.0-31.0); Mean Corpuscular Volume 99.9 fL (78.0-98.0); RBC Distribution Width 21.2 % (11.5-14.5); Red Blood Cell (RBC) Count 3.55 mill/uL (4.70-6.10); White Blood Cell (WBC) Count 11.2 thou/uL (4.8-10.8)
[2020-01-07 06:02] LABS: Hemoglobin 10.6 g/dL (14.0-18.0); Mean Corpuscular HGB CONC 31.3 g/dL (32.0-36.0); Mean Corpuscular Hemoglobin 31.1 pg (27.0-31.0); Mean Corpuscular Volume 99.4 fL (78.0-98.0); RBC Distribution Width 20.7 % (11.5-14.5); Red Blood Cell (RBC) Count 3.41 mill/uL (4.70-6.10); White Blood Cell (WBC) Count 11.6 thou/uL (4.8-10.8)
[2020-01-07 06:15] LABS: Band 23 % (5-11); Hypochromia SLIGHT = 6-15 cells (100X) (0-5/hpf); Lymphocytes 11 % (21-51); MDiff Complete? YES; Macrocytosis SLIGHT = 6-15 cells (100X) (0-5/hpf); Mean Platelet Volume 10.2 fL (7.4-10.4); Metamyelocyte 2 % (0-0); Monocytes 12 % (0-10); Neutrophil 52 % (42-75); Platelet Count 131 thou/uL (130-400); Platelet Morphology Comment Appears Adequate
[2020-01-07 06:25] LABS: Anion Gap 25 mmol/L (10-20); BUN (Urea Nitrogen) 82 mg/dL (8.4-25.7); Calc. Creatinine Clearance 16 mL/min (70-130); Calcium 7.1 mg/dL (7.8-10.44); Carbon Dioxide 12 mmol/L (22-29); Chloride 95 mmol/L (98-107); Estimated GFR-MDRD 7; Glucose 148 mg/dL (70-105); Potassium 5.4 mmol/L (3.5-5.1); Sodium 127 mmol/L (136-145)
[2020-01-07] MEDS ORDERED: Sodium Chloride 0.9% 1,000 ML IV SCH (06:30)
[2020-01-07 06:43] LABS: Band 32 % (5-11); Burr Cells SLIGHT = 2-5 cells (100X) (0-1/hpf); Hypochromia SLIGHT = 6-15 cells (100X) (0-5/hpf); Lymphocytes 3 % (21-51); MDiff Complete? YES; Mean Platelet Volume 11.2 fL (7.4-10.4); Monocytes 8 % (0-10); Neutrophil 57 % (42-75); Platelet Count 106 thou/uL (130-400); Platelet Morphology Comment Appears Decreased; Target Cells SLIGHT = 2-5 cells (100X) (0-1/hpf)
[2020-01-07 08:48] VITALS: TEMP 98.7
[2020-01-07] MEDS ORDERED: Famotidine/PF 20 mg/2ml Vial SLOW IVP SCH (09:00)
[2020-01-07] MEDS ORDERED: Fludrocortisone Acetate 0.1 MG TAB PO SCH (09:00)
--- NOTE | 2020-01-07 09:13 | RAD ---
PORTABLE CHEST: Date: 01/07/2020 HISTORY: ET tube placement. COMPARISON: 01/06/2020. FINDINGS: ET tube has tip above fritz and appears adequately positioned. A central line via the left subclavia n crosses the midline and points superiorly into the right jugular, and is unchanged in position. Right side effusion and right lung infiltrate and atelectasis again noted, unchanged. IMPRESSION: ET tube appears adequately positioned. The chest findings appear stable. POS: MARK ANTHONY
[2020-01-07] MEDS ORDERED: Rocuronium Bromide 10 MG/ML (10ML VIAL) ONE (09:31)
[2020-01-07] MEDS ORDERED: Sodium Bicarb 50 MEQ/50 ML Abboject 8.4% SYRINGE ONE (09:31)
[2020-01-07 09:45] LABS: CKMB 2.1 ng/mL (0-6.6)
[2020-01-07 10:06] LABS: Troponin I 0.371 ng/mL (< 0.028)
[2020-01-07] MEDS: Sevelamer Carbonate 800 MG TAB PO SCH ×2 (10:28→12:22)
[2020-01-07] MEDS: Aspirin 81 mg Enteric Coated Tablet PO SCH (10:29)
[2020-01-07] MEDS: Midodrine HCl 5 MG TAB PO SCH (10:38)
[2020-01-07] MEDS: Amoxicillin/Potassium Clav 875 MG TAB PO SCH (10:38)
[2020-01-07 10:48] LABS: Anion Gap 25 mmol/L (10-20); BUN (Urea Nitrogen) 84 mg/dL (8.4-25.7); Calc. Creatinine Clearance 17 mL/min (70-130); Calcium 6.9 mg/dL (7.8-10.44); Carbon Dioxide 11 mmol/L (22-29); Chloride 95 mmol/L (98-107); Estimated GFR-MDRD 7; Glucose 159 mg/dL (70-105); Potassium 5.4 mmol/L (3.5-5.1); Sodium 126 mmol/L (136-145)
[2020-01-07] MEDS ORDERED: Hydrocortisone Sod Succ/PF 100 mg/2 ml Vial ONE (10:49)
[2020-01-07] MEDS ORDERED: Sodium Bicarb 50 MEQ/50 ML VIAL ONE (11:05)
[2020-01-07] MEDS ORDERED: Sodium Bicarb 50 MEQ/50 ML Abboject 8.4% SYRINGE IVP SCH (11:15)
[2020-01-07] MEDS: Hydrocortisone Sod Succ/PF 100 mg/2 ml Vial IVP SCH ×2 (11:21→12:44)
--- NOTE | 2020-01-07 13:20 | PDOC.HOSPP ---
- Subjective Encounter Date: 01/07/20 Encounter Time: 08:00 Subjective: overnight, hypotensive, could not undergo PD per nephrology, appeared drowsy and clammy extremities. Administered 250cc NS slow bolus, however didn't improved and later had respiratory arrest, code blue, admitted to ICU and intubated. Despite levophed, remained hypotensive. Discussion with ( decision maker) and rest of family at bedside initially wanted no CPR since already intubated but after further discussion within family, decided to discontinue intubation and transition to comfort care. - Objective Vital Signs & Weight: Vital Signs (12 hours) Temp Pulse Resp Pulse Ox 01/07/20 12:00 27 H 01/07/20 10:26 91 01/07/20 10:00 23 H 01/07/20 08:00 98.7 F 23 H 99 01/07/20 06:00 23 H 01/07/20 05:20 100 01/07/20 05:12 104 H 01/07/20 05:00 97.7 F 01/07/20 03:10 98.4 F 97 18 92 L Weight Admit Weight 228 lb 1.6 oz Weight 235 lb 14.314 oz Most Recent Monitor Data Heart Rate from ECG 96 NIBP 77/60 NIBP BP-Mean 65 Respiration from ECG 0 SpO2 100 I&O: 01/06/20 01/07/20 01/08/20 06:59 06:59 06:59 Intake Total 240 1500 1060 Output Total 0 1175 300 Balance 240 325 760 Result Diagrams: 01/07/20 05:37 01/07/20 09:20 Additional Labs: Accuchecks 01/07/20 01/07/20 01/06/20 09:20 06:41 20:33 POC Glucose 149 H 128 H 170 H 01/06/20 17:10 POC Glucose 180 H Hospitalist ROS - Review of Systems ROS unobtainable: due to endotracheal tube - Exam General Appearance: ill appearing General - other findings: sedated and intubated, on pressors ENT: normocephalic atraumatic Neck: no JVD Heart: RRR, no gallops, no rubs, diminshed peripheral pulses Heart - other findings: cold extremities, no electrical alternans based on telemetry Respiratory: no wheezes, no rales, rhonchi Respiratory - other findings: intubated Gastrointestinal: soft, non-tender, non-distended, normal bowel sounds Extremities - other findings: anasarca Psychiatric - other findings: sedated Hosp A/P - Plan -per family request, who reiterated patient's request, will discontinue intubation and transition to comfort care Code status: DNAR stopped all active treatments including PPx
--- NOTE | 2020-01-07 14:02 | CON ---
DATE OF CONSULTATION: 01/07/2020 SERVICE: Pulmonary Medicine. REASON FOR CONSULTATION: ICU patient. HISTORY OF PRESENT ILLNESS: The patient is a 54-year-old white male with past medical history significant for horrendous type 2 diabetes mellitus. He has been estranged from the medical community for very long period of time. Ultimately, he developed increasing end-stage renal disease and required dialysis. He has been on dialysis for about two months now, and has been doing very poorly with it. The only reason he sought medical attention at all is because he has such severe anasarca that he could not move his legs, he had scrotal edema. The scrotal edema is ultimately what brought him in. Either way, he got started up on dialysis, and we have been working on getting him back to euvolemia. Recently, he presented to the Emergency Department on December 23, 2019. At that time, he had complaints of increasing difficulty breathing. He also had some chest discomfort. He was found to have pericardial effusion, which was large. He underwent a window. He was on the floor recovering when he developed a low blood pressures, and altered mentation. He was discovered to be agonal. As such, he was intubated. We proved that he had a very severe acidosis. He was brought to the ICU to hyperventilate. His blood pressures were extraordinarily marginal and he got 2 L of fluid in resuscitation. He was acidotic and got bicarb, and we also gave him some calcium. His hemodynamics have stabilized slightly, but he is requiring a significant amount of Levophed in order to maintain blood pressures that are adequate. Currently, hemodialysis has not been entertained because of his low blood pressures. He cannot provide any additional elements of the history at this point. PAST MEDICAL HISTORY: 1. End-stage renal disease, on hemodialysis. 2. Hypertension. 3. Dyslipidemia. 4. Type 2 diabetes mellitus, requiring insulin. 5. Pericardial effusion. PAST SURGICAL HISTORY: 1. Pericardial window. 2. Right IJ tunneled hemodialysis catheter placement. 3. Peritoneal dialysis catheter placement. 4. History of left arm fistula. SOCIAL HISTORY: Negative for alcohol, tobacco, or illicit drug use currently. FAMILY HISTORY: Noncontributory. ALLERGIES: NO KNOWN DRUG ALLERGIES. MEDICATIONS: List of his inpatient medications was reviewed. Multiple updates were made at this time. REVIEW OF SYSTEMS: This cannot be obtained as the patient is currently obtunded. PHYSICAL EXAMINATION: HEENT: Normocephalic and atraumatic. Sclerae white. Conjunctivae pink. Oral mucosa is moist without lesions. LUNGS: Good air entry. There is a prolonged expiratory phase. Crackles are present. Rhonchi are also noted, but are minimal. No wheezing is appreciated. HEART: Normal rate. Regular. ABDOMEN: Soft. Nontender. Bowel sounds are hypoactive. There is no rebound or guarding present. MUSCULOSKELETAL: No cyanosis or clubbing. There is diffuse edema present. : No Abraham. LABORATORY DATA: WBC 11.6, hemoglobin 10.6, and platelets 106,000 and gently downtrending. Neutrophil count is 57% on top of 32% bands. A pH of 7.21, pCO2 of 33, and pO2 of 87 corresponding to a saturation of 94%. Creatinine 7.73 and BUN 84. Bicarb 11 and downtrending, chloride 95. Potassium 5.4, sodium 126 which is steadily been deteriorating. Troponin 0.371, which is higher than prior. Magnesium 2.1. Peritoneal fluid has significant neutrophils. EMILY screen is unremarkable. Hepatitis B and C antigens are nonreactive. Peritoneal fluid is growing a gram-negative alonso. Body fluid culture is negative to-date. IMAGIN. Chest x-ray demonstrates cardiomegaly. Right dialysis catheter is in good position. There is an endotracheal tube roughly 4 cm above the level of the fritz. There is likely a large right-sided pleural effusion present. He does not have any obvious infiltrates; however. 2. Echocardiogram demonstrates 60% to 65% ejection fraction with now a tiny pericardial effusion without any tamponade. Prior echocardiogram showed 2/3 diastolic dysfunction. There was previously a large tamponade present. 3. Stress test demonstrates heterogeneous uptake of radiotracer throughout the left ventricle without perfusion defect reversibility. ASSESSMENT: 1. Acute hypoxic respiratory failure. 2. Pleural effusion. 3. Possible chronic obstructive pulmonary disease with acute exacerbation given waveforms on the ventilator. 4. Septic shock. 5. Bacterial peritonitis with gram-negative alonso. 6. End-stage renal disease, requiring dialysis. 7. Type 2 diabetes mellitus. DISCUSSION AND PLAN: We will give him two amps of bicarb, and calcium. He is on mechanical ventilator, he is breathing just fine. I will check a beta hydroxybutyric acid to make certain he is not developing any DKA, which I doubt he has. He has a right-sided pleural effusion, but he is oxygenating just fine on mechanical ventilator. It appears to be a simple effusion, so thoracentesis will not be entertained at this moment as I think that he has more pressing issues. Multiple adjustments have been made to the ventilator. Antibiotics directed at gram-negative rods will be initiated (meropenem). This patient remains critically ill. The patient's family would like for him to be a DNR, but are okay with the intubation and aggressive care for the time being, but in the event that his heart stops, they do not want to pursue chest compressions. This was discussed with multiple family members present at bedside. CRITICAL CARE TIME: 30 minutes. Job ID: [id number]
--- NOTE | 2020-01-08 10:59 | PRG ---
DATE OF SERVICE: 01/07/2020 SUBJECTIVE: Overnight events reported. The patient is intubated, dialysis was not performed. PHYSICAL EXAMINATION: General: The patient is resting_. Vital Signs: Afebrile, pulse 94, breathing at 16, blood pressure 79/59. HEENT: Head normocephalic and atraumatic. Eyes intact, no ulcers. Nose intact , no ulcers. Ears intact, no ulcers. Neck: Supple. No JVD. Chest: Symmetrical and clear. Cardiovascular: Shows S1 and S2, no rub, no murmur. Gastrointestinal: Abdomen is soft, bowel sounds positive. Extremities: Show no ulcers. Lower extremity shows edema. Skin: Shows no rash or petechiae. Musculoskeletal: Shows no joint swelling or stiffness. Genitourinary: Shows Abraham or CVA tenderness. Neurologic: The patient is resting. LABORATORY DATA: Labs reviewed. ASSESSMENT AND PLAN: 1. Stage 6 chronic kidney disease, on pressors. Remains intubated. We will recheck labs to evaluate need for dialysis. 2. Hypotension, on Florinef and pressors. 3. Overall prognosis is poor. The patient remains hypotensive, etiology not clear. 4. PD Fluid positive culture for gram-negative rods. I will discuss management with primary team. Job ID: [id number] [facility]
--- NOTE | 2020-01-08 15:09 | DIS ---
DATE OF ADMISSION: 12/23/2019 DATE OF DISCHARGE: 01/07/2020 HOSPITAL COURSE: Mr. North is a 54-year-old male with a medical history of end-stage renal disease, on hemodialysis, hypertension, diabetes type 2, and recent diagnosis of pericardial effusion, who presented to the hospital with right-sided chest pain. He had a complicated hospital course that required a pericardial window and had persistent hypotension despite attempting midodrine and Florinef. The patient also required peritoneal dialysis; however, dialysis was aborted multiple times due to significant hypotension. On January 06, the patient became drowsy with clammy extremities, systolic blood pressure was in the 50s and he was admitted to the ICU and was intubated. Despite being on pressors, he remained hypotensive. A discussion with his resulted in changing his code status to DNAR as well as terminal extubation. The patient was transitioned to comfort care and on January 06 at 02:06 p.m. Expiration was confirmed. Job ID: [id number]
--- NOTE | 2020-01-08 20:34 | PQF ---
[facility] Nursing Director Crystal Reports [employer] FILOMENA Tomlinson, CORTNEY [id number] CLINICAL DOCUMENTATION CLARIFICATION FORM: POST DISCHARGE Addendum to original discharge summary date: ____ Late entry note date: __ DATE: 01/08/20 ATTN:Cortney Howell Please exercise your independent, professional judgment in responding to the clarification form. Clinical indicators are provided on the bottom of this form for your review Can you please further clarify the etiology of chest pain? Please check appropriate box(s): [ ] Chest pain due to Pericardial effusion [ ] Chest pain due to complication of tunneled catheter [ ] Chest pain due to fluid overload [ x ] Atypical Chest [ ] Chest pain of unknown etiology [ ] Other diagnosis please specify [ ] Unable to determine In addition, please specify: Present on Admission (POA): [ x ] Yes [ ] No [ ] Unable to determine For continuity of documentation, please document condition throughout progress notes and discharge summary. Thank You. CLINICAL INDICATORS - SIGNS / SYMPTOMS /LABS H and P pg.2- chest Pain, rule out acute coronary syndrome H and P pg.2- the patient presented with atypical chest pain around his Edwards catheter Hospitalist PN 12/24 pg.4- chest pain, Troponin stable at 0.05, chest pain is atypical Consult 12/24 Dr. Jason pg.2- chest pain, atypical,likely related to the new right sided tunneled catheter Consult Dr. Chi pg.1- chest pain was noncardiac in etiologyetiology PN 01/02 pg.1- Chest pain resolved after pericardial window. RISK FACTORS Pleural effusion- H and pg.2 Large pericardial effusion- PN 11/26 pg.1 Volume Overload- Hospitalist PN pg.5 ESRD- Hospitalist PN pg.5 HTN- H and P pg.1 DM- H and P pg.1 TREATMENTS: Pericardial window 12/29 Cardiology Consult- Dr. Jason 12/24 Chest X ray 12/23 Stress test-- 12/24 Echocardiogram 12/26 Electrocardiogram 12/29 Dr. Finney IV Fluids- JAN IV Pain Medication- MAR (This form is maintained as a part of the permanent medical record) 2014 [employer]. All Rights Reserved [email or web address]
== END 2020-01-07 14:12 | disposition expired | DRG 270 ==
LOC: ERS 10:22 → OBSVTOIN 13:09 → 2SW 13:09 → 2NO 12-24 15:45 → CCU 01-07 05:01
PROVIDERS: ADMIT Internal Medicine; ATTEND Internal Medicine
PROC: 5A1D70Z Performance of Urinary Filtration, Intermittent, Less than 6 Hours Per Day (ICD-10-PCS; 2019-12-24)
PROC: 05CC0ZZ Extirpation of Matter from Left Basilic Vein, Open Approach (ICD-10-PCS; 2019-12-27)
PROC: 05CF0ZZ Extirpation of Matter from Left Cephalic Vein, Open Approach (ICD-10-PCS; 2019-12-27)
PROC: 0DUU4JZ Supplement Omentum with Synthetic Substitute, Percutaneous Endoscopic Approach (ICD-10-PCS; 2019-12-27)
PROC: 0WHG43Z Insertion of Infusion Device into Peritoneal Cavity, Percutaneous Endoscopic Approach (ICD-10-PCS; 2019-12-27)
PROC: 02PYX3Z Removal of Infusion Device from Great Vessel, External Approach (ICD-10-PCS; 2019-12-27)
PROC: 3E1M39Z Irrigation of Peritoneal Cavity using Dialysate, Percutaneous Approach (ICD-10-PCS; 2019-12-27)
PROC: 0W9D00Z Drainage of Pericardial Cavity with Drainage Device, Open Approach (ICD-10-PCS; principal; 2019-12-29)
PROC: 0BH18EZ Insertion of Endotracheal Airway into Trachea, Via Natural or Artificial Opening Endoscopic (ICD-10-PCS; 2020-01-07)
PROC: 5A1935Z Respiratory Ventilation, Less than 24 Consecutive Hours (ICD-10-PCS; 2020-01-07)
PROC: 3E033XZ Introduction of Vasopressor into Peripheral Vein, Percutaneous Approach (ICD-10-PCS; 2020-01-07)
DX: R07.89 Other chest pain (principal); N18.6 End stage renal disease; J96.01 Acute respiratory failure with hypoxia; R65.21 Severe sepsis with septic shock; A41.9 Sepsis, unspecified organism; K65.2 Spontaneous bacterial peritonitis; I12.0 Hypertensive chronic kidney disease with stage 5 chronic kidney disease or end stage renal disease; J90 Pleural effusion, not elsewhere classified; L03.116 Cellulitis of left lower limb; L03.115 Cellulitis of right lower limb; E87.1 Hypo-osmolality and hyponatremia; E87.2 Acidosis; I31.3 Pericardial effusion (noninflammatory); I82.612 Acute embolism and thrombosis of superficial veins of left upper extremity; N25.81 Secondary hyperparathyroidism of renal origin; J44.1 Chronic obstructive pulmonary disease with (acute) exacerbation; I31.4 Cardiac tamponade; Z66 Do not resuscitate; E11.22 Type 2 diabetes mellitus with diabetic chronic kidney disease; K74.60 Unspecified cirrhosis of liver; E11.42 Type 2 diabetes mellitus with diabetic polyneuropathy; E87.70 Fluid overload, unspecified; E03.9 Hypothyroidism, unspecified; D63.1 Anemia in chronic kidney disease; I95.89 Other hypotension; J32.9 Chronic sinusitis, unspecified; E83.59 Other disorders of calcium metabolism; E66.9 Obesity, unspecified; R09.2 Respiratory arrest; B96.89 Other specified bacterial agents as the cause of diseases classified elsewhere; K12.0 Recurrent oral aphthae; E83.39 Other disorders of phosphorus metabolism; E87.5 Hyperkalemia; R21 Rash and other nonspecific skin eruption; Z79.899 Other long term (current) drug therapy; Z99.2 Dependence on renal dialysis; Z79.4 Long term (current) use of insulin; Z68.31 Body mass index [BMI] 31.0-31.9, adult
CPT/HCPCS: 36415; 36416; 71045; 78452; 80048; 80053; 80202; 82088; 82306; 82533; 82553; 82805; 83735; 83970; 84100; 84484; 85007; 85025; 85027; 85060; 86038; 86225; 86803; 87070; 87077; 87186; 87205; 87340; 88112; 88305; 88341; 88342; 89051; 90935; 90945; 92950; 93005; 93010; 93017; 93306; 93970; 96374; A9500; C1769; G0257; G0365; J0690; J1100; J1644; J1720; J1815; J2001; J2060; J2175; J2370; J2405; J2550; J2704; J2720; J2785; J3010; J3370; J7050; P9047; Q0162; S0020